=== PATIENT | male | born 1940 | race Caucasian/White ===

== ENCOUNTER → 2016-09-28 | Outpatient (CLI) | payer BC ==
[~2016-09-28] MED LIST: BILB80CA2 PO; CARV3.12 PO; CEPH500C2 PO; CHOL200027 PO; CIPR-255 PO; COEN150C PO; GLC/500 PO; GLIP10TA9 PO; INSDGI SC; LACT1CAP6 PO; LEVO50TA PO; MILK175C3 PO; MULT-513 PO; SULF800T23 PO; [UNRECOGNIZED DRUG - CODE] PO
--- NOTE | 2016-09-28 13:14 | DIAGNOSTIC IMAGING REPORT ---
DOUBLE CONTRAST BARIUM ESOPHAGRAM CLINICAL HISTORY: Choking and dysphagia. COMPARISON STUDY: CT scan of the neck dated 03/24/2013. TECHNIQUE: A standard air contrast barium esophagram is performed. Multiple spot images of the esophagus are acquired both upright and prone. FINDINGS: The patient swallowed barium and the barium pill without difficulty. The mucosal pattern is normal. There is no evidence of intrinsic or extrinsic mass lesion. No aspiration was seen. There is mild dysmotility seen in the mid to distal third of the esophagus. The gastroesophageal junction distended normally. No gastroesophageal reflux could be elicited by having the patient perform the Valsalva maneuver. Midline sternotomy wires are noted. Fluoroscopy time: 1.2 minutes. Fluoroscopic images: 22 IMPRESSION: Esophageal dysmotility. Electronically signed by: Lyndon Bello M.D. 09/28/2016 1:12 PM Dictated Date/Time: 09/28/2016 1:11 PM
== END | disposition home or self-care (01) ==
LOC: C.RAD 11:59
PROVIDERS: ATTEND Hospitalist
DX: R13.10 Dysphagia, unspecified (principal); T17.308A Unspecified foreign body in larynx causing other injury, initial encounter; K22.4 Dyskinesia of esophagus; X58.XXXA Exposure to other specified factors, initial encounter

== ENCOUNTER → 2016-10-10 | Outpatient (CLI) | payer BC ==
--- NOTE | 2016-10-10 14:12 | DIAGNOSTIC IMAGING REPORT ---
VIDEO SWALLOW STUDY CLINICAL HISTORY: Dysphagia. COMPARISON STUDY: Barium esophagram dated 09/28/2016. Fluoroscopy time: 2.5 minutes. FINDINGS: Fluoroscopic guidance was provided with the Department of Speech Pathology and performing a video swallow study. The patient consumed barium-impregnated pudding, cracker with paste, nectar thick liquids, and thin barium while the swallowing mechanism was observed in real-time. No penetration or aspiration was seen with the sampled textures. Midline sternotomy wires are noted. IMPRESSION: No penetration or aspiration was seen with the sampled textures. See dedicated Speech Pathology report for detailed findings and recommendations. Dictated: 10/10/2016 2:07 PM Transcribed: 10/10/2016 2:11 PM CHINTAN_[email or web address] Electronically signed by: Lyndon Bello M.D. 10/10/2016 2:56 PM Dictated Date/Time: 10/10/2016 2:07 PM
--- NOTE | 2016-10-10 18:39 | SWALLOWING EVALUATION ---
HISTORY: This 76 year-old man was referred for a VFSS at [facility] in order to address c/o intermittent episodes of esophageal spasm that seem to occur most frequently when he is drinking cold liquids. The patient has a PMH significant for DM II, DE with cardiac arrest, CABG, pneumonia, hypothyroidism. The patient seems to think that his issues swallowing began after he had a cardiac catheterization, but he was not entirely sure. A Barium Swallow Study on 09/28/16 was positive for esophageal dysmotility, but negative for aspiration. Currently the patient's diet level is regular. PROCEDURE: The patient was seen in the Radiology Department of [facility] for the VFSS. Cursory examination of the oral cavity revealed adequate dentition. Movement of the articulators was WNL. The patient seated on a stool and was viewed in both the Anterior-Posterior (A-P) and Lateral planes. Volitional phonation exercises completed in the A-P plane revealed bilateral vocal fold movement and vocal intensity within functional limits. In the lateral plane, the patient was given the following boluses: 1 tsp. thin liquid barium x 2, single swallow thin liquid barium self-presented from a cup, sequential swallows of thin liquid barium self-presented from a straw, 1 tsp. nectar-thick liquid barium, single swallow nectar-thick liquid barium self-presented from a straw, 1 tsp. barium pudding, and 1 club cracker with barium pudding. The patient was then repositioned into the A-P plane and given 1 tsp. barium pudding. RESULTS: Oral Stage: No interlabial bolus escape. Cohesive bolus between tongue and palate during oral bolus hold exercise. Timely and efficient mastication of cracker. Delayed initiation of tongue motion for bolus transport, but once initiated bolus moved posteriorly. Complete oral clearance of bolus after the swallow. Initiation of pharyngeal swallow when bolus head was at the posterior angle of the ramus. Oral stage of swallowing was WNL. Pharyngeal Stage: No bolus between soft palate and pharyngeal wall. Complete superior movement of the thyroid cartilage with complete approximation of the arytenoids to the epiglottic petiole. Complete anterior hyoid movement. Complete epiglottic inversion. Complete laryngeal vestibular closure. Present pharyngeal stripping wave. Complete pharyngeal contraction in the AP plane. Complete duration and distention of PES opening. No contrast between tongue base and pharyngeal wall. Complete pharyngeal clearance after the swallow. Pharyngeal stage of swallowing WNL. There was no penetration or aspiration during this study. Esophageal Stage: A pudding bolus transited the esophagus without evidence of bolus retention. Regardless, he does have known esophageal dysmotility as evidenced on a Barium Swallow Study. SUMMARY/RECOMMENDATIONS: This patient presents with normal oral-pharyngeal swallowing mechanics. The following is recommended: 1. SLIPPERY diet: choose foods that are moist, slippery, loose; avoid dry, doughy, thick foods; use condiments liberally to make foods slippery 2. Compensatory strategies: avoid icy cold liquids and other foods that may cause discomfort; alternate solids and liquids; utilize GERD precautions including sleeping with head of bed elevated at least 30-degrees A summary of the results and recommendations was discussed with the patient and his immediately following the study. They were given written information re: slippery diet and verbalized understanding of all results and recommendations. Thank you for referral of this patient. Please contact me at if any additional information is needed.
== END | disposition home or self-care (01) ==
LOC: C.RAD 12:54
PROVIDERS: ATTEND Internal Medicine
DX: K22.4 Dyskinesia of esophagus (principal); R13.10 Dysphagia, unspecified; T17.308A Unspecified foreign body in larynx causing other injury, initial encounter; X58.XXXA Exposure to other specified factors, initial encounter

== ENCOUNTER → 2016-11-23 | Outpatient (CLI) | payer BC ==
--- NOTE | 2016-11-23 11:22 | DIAGNOSTIC IMAGING REPORT ---
CHEST 2 VIEWS ROUTINE CLINICAL HISTORY: R05 Cough dyspnea COMPARISON STUDY: 01/14/2016 FINDINGS: Moderate stable cardiomegaly. Prior median sternotomy. Chronic atelectatic change medial aspect left lower lobe. No acute infiltrate is identified. IMPRESSION: Chronic scarring and/or atelectatic change left base. Otherwise negative study Electronically signed by: Shay Canas M.D. 11/23/2016 11:21 AM Dictated Date/Time: 11/23/2016 11:20 AM
== END | disposition home or self-care (01) ==
LOC: C.RAD 10:59
PROVIDERS: ATTEND Nurse Practitioner
DX: R05 Cough (principal)

== ENCOUNTER → 2017-01-09 | Outpatient (CLI) | payer BC ==
[~2017-01-09] MED LIST changes: -CEPH500C2 PO; -CIPR-255 PO; -LACT1CAP6 PO
[2017-01-09 17:35] LABS: HEMATOCRIT 36.1 % (42-52); MEAN CELL VOLUME 93.3 fL (80-100); MEAN CORPUSCULAR HGB CONC 32.1 g/dl (32-36); MEAN PLATELET VOLUME 11.1 fL (7.4-10.4); PLATELET COUNT 186 K/uL (130-400); RED BLOOD COUNT 3.87 M/uL (4.7-6.1); WHITE BLOOD COUNT 6.43 K/uL (4.8-10.8)
[2017-01-09 17:51] LABS: ALT/SGPT 30 U/L (12-78); AST/SGOT 18 U/L (15-37); BLOOD UREA NITROGEN 31 mg/dl (7-18); BUN/CREATININE RATIO 24.2 (10-20); CALCIUM 8.8 mg/dl (8.5-10.1); CARBON DIOXIDE 24 mmol/L (21-32); CHLORIDE 112 mmol/L (98-107); GLUCOSE 158 mg/dl (70-99); POTASSIUM 4.6 mmol/L (3.5-5.1); SODIUM 142 mmol/L (136-145)
[2017-01-09 17:54] LABS: ALB/GLOB RATIO 0.8 (0.9-2); ALKALINE PHOSPHATASE 179 U/L (45-117)
[2017-01-09 18:25] LABS: RATIO 2295.9 mcg/mg (0-30.0)
[2017-01-10 06:13] LABS: ESTIMATED AVERAGE GLUCOSE 206 mg/dl; HA1C FLAG Normal (Normal)
== END | disposition home or self-care (01) ==
LOC: C.LABBFT 13:48
PROVIDERS: ATTEND Nurse Practitioner
DX: E11.42 Type 2 diabetes mellitus with diabetic polyneuropathy (principal)

== ENCOUNTER → 2017-02-02 | Outpatient (CLI) | payer BC ==
[2017-02-02 17:04] LABS: BLOOD UREA NITROGEN 47 mg/dl (7-18); BUN/CREATININE RATIO 27.5 (10-20); CALCIUM 8.8 mg/dl (8.5-10.1); CARBON DIOXIDE 24 mmol/L (21-32); CHLORIDE 107 mmol/L (98-107); GLUCOSE 245 mg/dl (70-99); MAGNESIUM 2.2 mg/dl (1.8-2.4); SODIUM 143 mmol/L (136-145)
== END | disposition home or self-care (01) ==
LOC: C.LABBFT 11:53
PROVIDERS: ATTEND Internal Medicine Cardiovascular Disease
DX: I10 Essential (primary) hypertension (principal); I25.10 Atherosclerotic heart disease of native coronary artery without angina pectoris; I50.32 Chronic diastolic (congestive) heart failure; I25.5 Ischemic cardiomyopathy; D64.9 Anemia, unspecified

== ENCOUNTER → 2017-03-16 | Outpatient (CLI) | payer BC ==
[2017-03-16 17:11] LABS: BLOOD UREA NITROGEN 37 mg/dl (7-18); BUN/CREATININE RATIO 26.5 (10-20); CALCIUM 8.8 mg/dl (8.5-10.1); CARBON DIOXIDE 25 mmol/L (21-32); CHLORIDE 106 mmol/L (98-107); GLUCOSE 224 mg/dl (70-99); POTASSIUM 4.3 mmol/L (3.5-5.1); SODIUM 138 mmol/L (136-145)
== END | disposition home or self-care (01) ==
LOC: C.LABBFT 16:50
PROVIDERS: ATTEND Nurse Practitioner
DX: N28.9 Disorder of kidney and ureter, unspecified (principal)

== ENCOUNTER → 2017-05-09 | Outpatient (CLI) | payer BC ==
[~2017-05-09] MED LIST changes: -GLC/500 PO; -GLIP10TA9 PO; -SULF800T23 PO
[2017-05-09 17:38] LABS: BASO % 0.3 %; BASO ABS # 0.02 K/uL (0-0.2); COMPLETE YES; HEMATOCRIT 33.3 % (42-52); IG% 0.6 %; LYMPH % 24.3 %; LYMPH ABS # 1.54 K/uL (1.2-3.4); MEAN CELL VOLUME 88.8 fL (80-100); MEAN CORPUSCULAR HEMOGLOBIN 30.7 pg (25-34); MEAN CORPUSCULAR HGB CONC 34.5 g/dl (32-36); MEAN PLATELET VOLUME 10.4 fL (7.4-10.4); MONO % 13.1 %; NEUT % 58.7 %; PLATELET COUNT 143 K/uL (130-400); RED BLOOD COUNT 3.75 M/uL (4.7-6.1); WHITE BLOOD COUNT 6.35 K/uL (4.8-10.8)
[2017-05-09 18:42] LABS: ALB/GLOB RATIO 0.8 (0.9-2); ALKALINE PHOSPHATASE 106 U/L (45-117); ALT/SGPT 29 U/L (12-78); AST/SGOT 20 U/L (15-37); BLOOD UREA NITROGEN 38 mg/dl (7-18); BUN/CREATININE RATIO 27.4 (10-20); CALCIUM 8.5 mg/dl (8.5-10.1); CARBON DIOXIDE 25 mmol/L (21-32); CHLORIDE 105 mmol/L (98-107); CHOLESTEROL 129 mg/dl (0-200); CHOLESTEROL/HDL RATIO 4.6; GLUCOSE 353 mg/dl (70-99); HDL CHOLESTEROL 28 mg/dl; LDL CHOLESTEROL CALCULATED 53 mg/dl; POTASSIUM 4.4 mmol/L (3.5-5.1); SODIUM 137 mmol/L (136-145); TRIGLYCERIDES 240 mg/dl (0-150); VERY LOW DENSITY LIPOPROT CALC 48 mg/dl
[2017-05-09 18:52] LABS: BETA-HYDROXYBUTYRATE 1.14 mg/dL (0.2-2.81)
[2017-05-10 07:04] LABS: ESTIMATED AVERAGE GLUCOSE 278 mg/dl; HA1C FLAG Normal (Normal)
== END | disposition home or self-care (01) ==
LOC: C.LABBFT 14:10
PROVIDERS: ATTEND Nurse Practitioner
DX: E11.8 Type 2 diabetes mellitus with unspecified complications (principal); Z12.5 Encounter for screening for malignant neoplasm of prostate

== ENCOUNTER → 2017-09-13 | Outpatient (CLI) | payer BC ==
[2017-09-13 17:32] LABS: HEMATOCRIT 36.8 % (42-52); MEAN CORPUSCULAR HEMOGLOBIN 30.8 pg (25-34); MEAN CORPUSCULAR HGB CONC 33.4 g/dl (32-36); MEAN PLATELET VOLUME 11.4 fL (7.4-10.4); PLATELET COUNT 150 K/uL (130-400); WHITE BLOOD COUNT 7.14 K/uL (4.8-10.8)
[2017-09-13 17:54] LABS: ALT/SGPT 30 U/L (12-78); AST/SGOT 17 U/L (15-37); BLOOD UREA NITROGEN 33 mg/dl (7-18); BUN/CREATININE RATIO 19.4 (10-20); CALCIUM 8.4 mg/dl (8.5-10.1); CARBON DIOXIDE 27 mmol/L (21-32); CHLORIDE 103 mmol/L (98-107); CREATININE 1.71 mg/dl (0.60-1.40); GLUCOSE 304 mg/dl (70-99); POTASSIUM 3.9 mmol/L (3.5-5.1); SODIUM 135 mmol/L (136-145)
[2017-09-13 17:57] LABS: ALB/GLOB RATIO 0.8 (0.9-2); CHOLESTEROL 139 mg/dl (0-200); TRIGLYCERIDES 175 mg/dl (0-150); VERY LOW DENSITY LIPOPROT CALC 35 mg/dl
[2017-09-13 18:07] LABS: ALKALINE PHOSPHATASE 92 U/L (45-117); BETA-HYDROXYBUTYRATE 0.84 mg/dL (0.2-2.81); CHOLESTEROL/HDL RATIO 4.6; HDL CHOLESTEROL 30 mg/dl; LDL CHOLESTEROL CALCULATED 74 mg/dl
[2017-09-14 06:13] LABS: ESTIMATED AVERAGE GLUCOSE 240 mg/dl; HA1C FLAG Normal (Normal)
== END | disposition home or self-care (01) ==
LOC: C.LABBFT 14:40
PROVIDERS: ATTEND Nurse Practitioner
DX: E11.8 Type 2 diabetes mellitus with unspecified complications (principal); E78.00 Pure hypercholesterolemia, unspecified; D64.9 Anemia, unspecified

== ENCOUNTER → 2017-12-13 | Outpatient (CLI) | payer BC ==
--- NOTE | 2017-12-13 15:17 | DIAGNOSTIC IMAGING REPORT ---
CHEST 2 VIEWS ROUTINE CLINICAL HISTORY: J18.9 Community acquired pneumonia dyspnea COMPARISON STUDY: 11/23/2016 FINDINGS: Moderate cardiomegaly. Prior median sternotomy. Infiltrate right base. Upper lungs are clear. Diaphragms are smooth. IMPRESSION: Moderate cardiomegaly. Infiltrate right base. The above report was generated using voice recognition software. It may contain grammatical, syntax or spelling errors. Electronically signed by: Shay Canas M.D. 12/13/2017 3:15 PM Dictated Date/Time: 12/13/2017 3:15 PM
[2017-12-13 16:15] LABS: HEMATOCRIT 31.3 % (42-52); HEMOGLOBIN 10.9 g/dL (14.0-18.0); MEAN CELL VOLUME 89.2 fL (80-100); MEAN CORPUSCULAR HEMOGLOBIN 31.1 pg (25-34); MEAN CORPUSCULAR HGB CONC 34.8 g/dl (32-36); MEAN PLATELET VOLUME 10.4 fL (7.4-10.4); PLATELET COUNT 119 K/uL (130-400); RED CELL DISTRIBUTION WIDTH CV 14.2 % (11.5-14.5); RED CELL DISTRIBUTION WIDTH SD 46.5 fL (36.4-46.3); WHITE BLOOD COUNT 5.16 K/uL (4.8-10.8)
[2017-12-13 16:42] LABS: BLOOD UREA NITROGEN 55 mg/dl (7-18); CARBON DIOXIDE 22 mmol/L (21-32); CREATININE 1.94 mg/dl (0.60-1.40); CREATININE RANDOM URINE 83.3 mg/dl; GLUCOSE 215 mg/dl (70-99); POTASSIUM 4.2 mmol/L (3.5-5.1); SODIUM 132 mmol/L (136-145)
[2017-12-13 16:53] LABS: BASO % 0.4 %; BASO ABS # 0.02 K/uL (0-0.2); EOS % 0.2 %; EOS ABS # 0.01 K/uL (0-0.5); IG# 0.01 K/uL (0.00-0.02); LYMPH ABS # 0.93 K/uL (1.2-3.4); MONO % 15.3 %; MONO ABS # 0.79 K/uL (0.11-0.59); NEUT % 65.9 %
== END | disposition home or self-care (01) ==
LOC: C.RAD 14:18
PROVIDERS: ATTEND Nurse Practitioner
DX: J18.9 Pneumonia, unspecified organism (principal); E11.8 Type 2 diabetes mellitus with unspecified complications; R53.83 Other fatigue; D64.9 Anemia, unspecified

== ENCOUNTER → 2017-12-19 | Outpatient (CLI) | payer BC ==
[2017-12-19 11:08] LABS: BLOOD UREA NITROGEN 49 mg/dl (7-18); CALCIUM 9.1 mg/dl (8.5-10.1); CARBON DIOXIDE 23 mmol/L (21-32); CREATININE 1.64 mg/dl (0.60-1.40); GLUCOSE 340 mg/dl (70-99); POTASSIUM 4.4 mmol/L (3.5-5.1); SODIUM 136 mmol/L (136-145)
== END | disposition home or self-care (01) ==
LOC: C.LAB1850 09:12
PROVIDERS: ATTEND Nurse Practitioner
DX: D64.9 Anemia, unspecified (principal)

== ENCOUNTER → 2018-01-16 | Outpatient (CLI) | payer BC ==
[2018-01-16 16:28] LABS: HEMATOCRIT 33.7 % (42-52); HEMOGLOBIN 11.5 g/dL (14.0-18.0); MEAN CELL VOLUME 89.6 fL (80-100); MEAN CORPUSCULAR HEMOGLOBIN 30.6 pg (25-34); MEAN CORPUSCULAR HGB CONC 34.1 g/dl (32-36); MEAN PLATELET VOLUME 10.8 fL (7.4-10.4); PLATELET COUNT 138 K/uL (130-400); RED CELL DISTRIBUTION WIDTH CV 14.3 % (11.5-14.5); WHITE BLOOD COUNT 6.56 K/uL (4.8-10.8)
[2018-01-16 16:50] LABS: ALBUMIN 3.3 gm/dl (3.4-5.0); ALT/SGPT 37 U/L (12-78); AST/SGOT 26 U/L (15-37); BLOOD UREA NITROGEN 44 mg/dl (7-18); CALCIUM 8.1 mg/dl (8.5-10.1); CARBON DIOXIDE 22 mmol/L (21-32); GLUCOSE 225 mg/dl (70-99); POTASSIUM 3.8 mmol/L (3.5-5.1); SODIUM 132 mmol/L (136-145)
[2018-01-16 16:52] LABS: ALKALINE PHOSPHATASE 106 U/L (45-117); CHOLESTEROL 100 mg/dl (0-200); LDL CHOLESTEROL CALCULATED 46 mg/dl; TOTAL PROTEIN 7.3 gm/dl (6.4-8.2); TRANSFERRIN 261 mg/dl (200-360)
== END | disposition home or self-care (01) ==
LOC: C.LABBFT 12:11
PROVIDERS: ATTEND Nurse Practitioner
DX: E11.8 Type 2 diabetes mellitus with unspecified complications (principal); D64.9 Anemia, unspecified

== ENCOUNTER 2019-09-20 12:05 | Observation (INO) ==
[2019-09-20] MEDS ORDERED: PIPERACILLIN/TAZOBACTAM 4.5 GM/120 ML BAG IV ONE ×2 (12:45→17:13)
[2019-09-20] MEDS ORDERED: DAPTOmycin 500 MG in SYRINGE 0 ML IV STA (12:45)
[2019-09-20] MEDS ORDERED: PIPERACILL/TAZOBAC CONSULT ACTIVE PRN ×2 (12:45→17:13)
--- NOTE | 2019-09-20 12:48 | Emergency Department Note ---
ED Visit Note This patient was seen in concert with Dr. Cobb and we discussed and agreed upon the history, physical, assessment, and plan. See attending's note for details. . Resident Activity Tracking Resident Involvement: Resident Care Provided Care Provided: Adult ED
--- NOTE | 2019-09-20 13:12 | Emergency Department Note ---
Entered by Latonia Perkins acting as a scribe for History of Present Illness General Chief complaint: Groin Pain Stated complaint: GROIN SWELLING/PAIN Time Seen by Provider: 09/20/19 12:13 Source: patient History of Present Illness Provider complaint: scrotum swelling Onset (ago): week(s) 2 Location: genitals and right Pain Consistency: + other (worsening) Maximum Pain Intensity: 5 Current Pain Intensity: 4 Quality: + other (right scrotum swelling) Exacerbated By: + other (Touch; Sitting back;) Associated symptoms: + fever/chills and + other (Negative hematuria; ); no chest pain and no shortness of breath Treatments prior to arrival: other (Hydrogen peroxide; soap; frequent showers;) The patient, who is a 79 year old male with a medical history of anemia, diabetic nephropathy, and hypertension, presents to the Emergency Room with complaints of scrotum swelling from an injury that occurred two weeks ago. The patient explains that two weeks ago he was using the bathroom in his backyard when he fell forward and scratched his right scrotum on a tree. The patient expresses that he didn't not have any concerns at the time. The patient states over the course of his symptoms his scrotum has been swelling to the current size of a grapefruit. The patient denies difficulty urinating but expresses that he does not have control of his stream. The patient denies hematuria. The patient expresses that for two days last week he experienced fever and chills, however this has resolved. The patient denies chest pain, shortness of breath, or hematuria. The patient expresses that he can no longer sit properly or walk properly. The patient rates his current pain intensity a 4 out of 10. The patient relays that his pain is exacerbated when he sits back or touches the area. The patient states that he has been using soap, hydrogen peroxide and fr equent showers to treat the area. The patient denies any other medication use for treatment. Home Medications Home Medications Medication Instructions Recorded Confirmed Type coenzyme Q10 [Co Q-10] 100 mg PO DAILY PRN 08/11/18 09/20/19 History cholecalciferol (vitamin D3) 5,000 5,000 units PO TUTHSA cap 04/30/19 09/20/19 History unit capsule flash glucose scanning reader #1 ea 04/30/19 04/30/19 History garlic-parsley 1 tab PO DAILY tab 04/30/19 09/20/19 History lancets 33 gauge #100 ea 04/30/19 04/30/19 History magnesium citrate 100 mg tablet 200 mg PO DAILY PRN tab 04/30/19 09/20/19 History milk thistle 500 mg capsule 1,000 mg PO DAILY PRN cap 04/30/19 09/20/19 History pen needle, diabetic 32 gauge x #10 ea 04/30/19 04/30/19 History 5/32" sub-q insulin device, 40 unit #30 ea 04/30/19 04/30/19 History turmeric root extract 500 mg 1,500 mg PO DAILY PRN cap 04/30/19 09/20/19 History capsule flash glucose sensor #6 ea 08/25/19 Rx bilberry 100 mg PO DAILY 09/20/19 09/20/19 History furosemide 40 mg PO DAILYBB 09/20/19 09/20/19 History insulin aspart U-100 [Novolog 80 unit SUBCUT DAILY 09/20/19 09/20/19 History U-100 Insulin aspart] levothyroxine [Synthroid] 75 mcg PO DAILYBB 09/20/19 09/20/19 History Allergies Allergy/AdvReac Type Severity Reaction Status Date / Time cat dander Allergy Mild unknown Verified 03/24/19 11:29 ragweed pollen Allergy Unknown SHORTNESS Verified 03/24/19 11:29 OF BREATH lisinopril Allergy Verified 03/24/19 11:29 [id number] Reductase Allergy Verified 09/20/19 13:18 Inhibitor Past Med/Surg History Medical History Chronic venous stasis (Chronic) Diabetes (Chronic) Hypothyroid (Chronic) Surgical History S/P CABG x 3 (Chronic) Family History (Updated 09/20/19 @ 16:12 by Pauly Hernandez DO) Other No significant family history Social History Preferred Language: Sinhala Communication Ability: Effective Machine Operator Required: No Beliefs That Will Affect Care: None marital status: Current Living Situation: Foster Care current occupational status: retired Feels Safe at Home: Yes Smoking Status: Former smoker Second Hand Exposure: No ; Hx Alcohol Use: Yes Hx Substance Use: No Review of Systems See HPI for pertinent positives & negatives. and A total of 10 systems reviewed and were otherwise negative Physical Exam Vital Signs Vital Signs - 24 hr 09/20/19 12:10 09/20/19 14:05 Temperature 36.5 C Temperature Source Oral Pulse Rate 51 L Pulse Rate [Apical] 82 Respiratory Rate 20 16 Blood Pressure 179/80 H Blood Pressure [Left Arm] 208/94 H Blood Pressure Mean 113 Blood Pressure Mean [Left Arm] 132 Pulse Oximetry 98 97 Oxygen Delivery Method Room Air Room Air Sepsis Recent Fever Within 48 Hours No Sepsis New/Unexplained Change in Mental Status No Sepsis Action Taken by Nursing No Action Required GENERAL: Patient is in no acute distress. HEENT: No acute trauma, normocephalic atraumatic, mucous membranes moist, no nasal congestion, no scleral icterus. NECK: No stridor, no adenopathy, no meningismus, trachea is midline. LUNGS: Clear to auscultation bilaterally, no wheeze, no rhonchi, breath sounds equal. HEART: Without murmurs gallops or rubs, regular rate and rhythm. ABDOMEN: Soft, nontender, bowel sounds positive, no hernias, no peritonitis. EXTREMITIES: Moderate bilateral pedal edema extending to the thigh, chronic skin change to both lower extremities, no warmth to either lower extremities, no gross deformity. GENITAL: Signs of scrotal edema with some erythema to the inferior and posterior aspect of the scrotum and to the crease of the groin. The edema makes the testicular exam near impossible, the head of the penis can not be found, no warmth noted. NEUROLOGIC: Oriented x 3, no acute motor or sensory deficits, no focal weakness. SKIN: No rash, no jaundice, no diaphoresis. Course Course 1217: Past medical records reviewed. The patient was evaluated in room A2. A complete history and physical exam was performed. 1402: My assigned resident reassessed the patient and informed me of any updates on the patient. The patient is resting. 1515: I reviewed the patient's case with Dr. Hernandez, [facility] Hospitalist. She will evaluate the patient for further management. Consultations Consultation #1: I reviewed the patient's case with Dr. Hernandez, [facility] Hospitalist. She will evaluate the patient for further management. Time: 15:15 Administered Medications Insulin Aspart (Novolog Flexpen) 0 units SC ACHS ADELFO Stop: 10/20/19 17:12 Last Admin: 09/20/19 17:56 Dose: Not Given Documented by: [id number] Ioversol (Optiray 320 100ml) 95 ml IV ONCE PRN PRN Reason: Interaction Checking Stop: 09/24/19 13:51 Last Admin: 09/20/19 13:53 Dose: 95 ml Documented by: [id number] Discontinued Medications Furosemide (Lasix) 40 mg IV NOW STA Stop: 09/20/19 14:02 Last Admin: 09/20/19 14:36 Dose: 40 mg Documented by: [id number] Piperacillin Sod/Tazobactam Sod (Zosyn) 4.5 gm in 120 mls @ 240 mls/hr IV NOW ONE Stop: 09/20/19 13:14 Last Infusion: 09/20/19 13:56 Dose: 0 mls/hr Documented by: [id number] Admin: 09/20/19 13:25 Dose: 240 mls/hr Documented by: [id number] Daptomycin 500 mg/ Syringe 10 mls @ 5 mls/min IV NOW STA; Protocol Stop: 09/20/19 12:46 Last Admin: 09/20/19 13:25 Dose: 5 mls/min Documented by: [id number] Medical Decision Making Differential Diagnosis Differential diagnosis includes: scrotal cellulitis, scrotal abscess, diastolic heart failure, right sided heart failure, fluid overload, testicular trauma, as well as others were entertained. Medical Records Attestation: I reviewed the patient's medical records. Home Medications Current Medication List: was personally reviewed by me Laboratory Data Attestation: I reviewed the patient's lab results. Result diagrams: 09/20/19 13:07 09/20/19 13:07 Lab Results 09/20/19 09/20/19 09/20/19 Range/Units 12:55 13:07 13:07 WBC 8.43 (4.8-10.8) K/uL RBC 4.15 L (4.7-6.1) M/uL Hgb 13.0 L (14.0-18.0) g/dL Hct 39.1 L (42-52) % MCV 94.2 (80-100) fL MCH 31.3 (25-34) pg MCHC 33.2 (32-36) g/dL RDW Std Deviation 49.4 H (36.4-46.3) fL RDW Coeff of Malcolm 14.3 (11.5-14.5) % Plt Count 202 (130-400) K/uL MPV 10.6 H (7.4-10.4) fL Immature Gran % (Auto) 0.5 % Neut % (Auto) 69.6 % Lymph % (Auto) 16.1 % [place] % (Auto) 10.0 % Eos % (Auto) 3.6 % Baso % (Auto) 0.2 % Immature Gran # (Auto) 0.04 H (0.00-0.02) K/uL Neut # (Auto) 5.87 (1.4-6.5) K/uL Lymph # (Auto) 1.36 (1.2-3.4) K/uL [place] # (Auto) 0.84 H (0.11-0.59) K/uL Eos # (Auto) 0.30 (0-0.5) K/uL Baso # (Auto) 0.02 (0-0.2) K/uL Sodium 138 (136-145) mmol/L Potassium 3.8 (3.5-5.1) mmol/L Chloride 106 (98-107) mmol/L Carbon Dioxide 26 (21-32) mmol/L Anion Gap 6.0 (3-11) BUN 37 H (7-18) mg/dl Creatinine 1.69 H (0.6-1.4) mg/dl Est Cr Clr Drug Dosing 45.8 ml/min Est GFR ( Amer) 44.1 Est GFR (Non-Af Amer) 38.1 BUN/Creatinine Ratio 21.6 H (10-20) Glucose 209 H (70-99) mg/dl Lactate (0.4-2.0) mmol/L Calcium 9.2 (8.5-10.1) mg/dl Total Bilirubin 0.7 (0.2-1) mg/dl AST 19 (15-37) U/L ALT 25 (12-78) U/L Alkaline Phosphatase 191 H (45-117) U/L Total Protein 8.3 H (6.4-8.2) gm/dl Albumin 3.2 L (3.4-5.0) gm/dl Globulin 5.1 H (2.5-4.0) gm/dl Albumin/Globulin Ratio 0.6 L (0.9-2) Urine Color Yellow Urine Appearance Clear (Clear) Urine pH 5.0 (4.5-7.5) Ur Specific [place] 1.010 (1.000-1.030) Urine Protein 1+ H (Negative) Urine Glucose (UA) Negative (Negative) Urine Ketones Negative (Negative) Urine Blood Trace H (Negative) Urine Nitrite Negative (Negative) Urine Bilirubin Negative (Negative) Urine Urobilinogen Negative (Negative) Ur Leukocyte Esterase Negative (Negative) Urine WBC (Auto) 0 (0-5) /hpf Urine RBC (Auto) 0-4 (0-4) /hpf U Hyaline Cast (Auto) 0 (0-5) /lpf U Epithel Cells (Auto) 0-5 (0-5) /lpf Urine Bacteria (Auto) Negative (Negative) 09/20/19 Range/Units 13:07 WBC (4.8-10.8) K/uL RBC (4.7-6.1) M/uL Hgb (14.0-18.0) g/dL Hct (42-52) % MCV (80-100) fL MCH (25-34) pg MCHC (32-36) g/dL RDW Std Deviation (36.4-46.3) fL RDW Coeff of Malcolm (11.5-14.5) % Plt Count (130-400) K/uL MPV (7.4-10.4) fL Immature Gran % (Auto) % Neut % (Auto) % Lymph % (Auto) % [place] % (Auto) % Eos % (Auto) % Baso % (Auto) % Immature Gran # (Auto) (0.00-0.02) K/uL Neut # (Auto) (1.4-6.5) K/uL Lymph # (Auto) (1.2-3.4) K/uL [place] # (Auto) (0.11-0.59) K/uL Eos # (Auto) (0-0.5) K/uL Baso # (Auto) (0-0.2) K/uL Sodium (136-145) mmol/L Potassium (3.5-5.1) mmol/L Chloride (98-107) mmol/L Carbon Dioxide (21-32) mmol/L Anion Gap (3-11) BUN (7-18) mg/dl Creatinine (0.6-1.4) mg/dl Est Cr Clr Drug Dosing ml/min Est GFR ( Amer) Est GFR (Non-Af Amer) BUN/Creatinine Ratio (10-20) Glucose (70-99) mg/dl Lactate 1.5 (0.4-2.0) mmol/L Calcium (8.5-10.1) mg/dl Total Bilirubin (0.2-1) mg/dl AST (15-37) U/L ALT (12-78) U/L Alkaline Phosphatase (45-117) U/L Total Protein (6.4-8.2) gm/dl Albumin (3.4-5.0) gm/dl Globulin (2.5-4.0) gm/dl Albumin/Globulin Ratio (0.9-2) Urine Color Urine Appearance (Clear) Urine pH (4.5-7.5) Ur Specific [place] (1.000-1.030) Urine Protein (Negative) Urine Glucose (UA) (Negative) Urine Ketones (Negative) Urine Blood (Negative) Urine Nitrite (Negative) Urine Bilirubin (Negative) Urine Urobilinogen (Negative) Ur Leukocyte Esterase (Negative) Urine WBC (Auto) (0-5) /hpf Urine RBC (Auto) (0-4) /hpf U Hyaline Cast (Auto) (0-5) /lpf U Epithel Cells (Auto) (0-5) /lpf Urine Bacteria (Auto) (Negative) Imaging Data Radiologist's Impression: Radiology results as stated below per my review and the radiologist's interpretation: CT abd pelvis IV con only CT DOSE: 2285.86 mGy.cm HISTORY: ?scrotal abscess/cellulitis TECHNIQUE: Multiaxial CT images of the abdomen and pelvis were performed following the use of intravenous contrast. A dose lowering technique was utilized adhering to the principles of ALARA. COMPARISON STUDY: None. FINDINGS: Right pleural effusion. Infiltrate and/or partial lower lobe atelectasis right base. Minimal dependent atelectasis left base. Findings suggesting a component of hepatic cirrhosis. Trace amount of perihepatic ascites. The kidneys enhance uniformly. 2 cm lower pole right renal cyst. No evidence for hydronephrosis. Nonobstructive bowel pattern. Scattered colonic and sigmoid diverticulosis. No evidence for acute diverticulitis. Mild anterior abdominal wall cellulitis. This is more prominent in the region of the scrotal region. Large hydrocele is possibly present. Cannot entirely exclude the possibility of abscess formation. There is a complex nodular process measuring 7 cm within the inferior aspect of the scrotum with several nonspecific soft tissue calcifications. Mild infiltrative change involving the subcutaneous fat lateral aspects of the proximal thighs. IMPRESSION: 1. Enlarged scrotum with what appears to be either a large hydrocele versus developing abscess. 2. 7 cm somewhat irregular collection within the inferior aspect of the scrotum which potentially relates to a irregular testis versus internal collection or abscess. 3. Scrotal ultrasound is recommended as follow-up. 4. Soft tissue cellulitis anterior to the symphysis pubis as well as lateral aspects of the thighs as well as anterior abdominal wall. 5. Hepatic cirrhosis with a small amount of perihepatic ascites. 6. Scattered colonic diverticulosis with no evidence for diverticulitis. 7. Moderate right pleural effusion with components of right lower lobe atelectatic change. 8. Several reactive nodes in the inguinal regions bilaterally. ACT 112: Negative or not required by law. The above report was generated using voice recognition software. It may contain grammatical, syntax or spelling errors. Electronically signed by: Shay Caans M.D. 09/20/2019 2:03 PM US scrotum/testicle HISTORY: Trauma. Pain. Edema. ?scrotal abscess/cellulitis COMPARISON: CT same day FINDINGS: Right testis: Maximum dimension 4.7 cm. Normal vascular flow. Complex moderately thick walled collection or slightly complex hydrocele lateral to the right testis. This measures 7 x 6 cm. Right epididymis is somewhat limited visibility due to edema but demonstrates 2 small 5 and 10 mm epididymal cysts. Generalized scrotal wall thickening is present. Left testis measures 4.6 cm maximum dimension. Normal vascular flow is present. IMPRESSION: 1. The right as well as left testis appear normal with normal vascular flow. 2. Slightly complex thick-walled collection lateral to the right testis measuring 7 x 6 cm. 3. All findings are associated with considerable thickening of the scrotal wall. 4. Diagnostic considerations of the large somewhat thick-walled collection include a thick-walled hydrocele, old hematoma given the presence of trauma history,, with the possibility of a superimposed soft tissue cellulitis. 5. A focal abscess lateral to the right testis is not completely excluded. ACT 112: Negative or not required by law. The above report was generated using voice recognition software. It may contain grammatical, syntax or spelling errors. Electronically signed by: Shay Canas M.D. 09/20/2019 2:39 PM Blood Pressure Blood Pressure Findings: Elevated blood pressure Blood Pressure Disposition: further management by hospitalist [facility] Narrative There is no leukocytosis. No worrisome anemia. The patient has a normal platelet count. There is some renal insufficiency but this is baseline looking back at previous testing. Lactic acid level is not elevated making severe sepsis less likely. Alk phos mildly elevated, the bilirubin was normal. Urinalysis does not show any evidence of for infection. Scrotal ultrasound suggested a hydrocele versus abscess versus hematoma. Abdominal and pelvis CT shows some edema to the scrotal area, there was a fluid collection seen. The patient received IV Lasix to help with his edema. He was given IV daptomycin and IV Zosyn as antibiotic coverage. The patient presents with increasing scrotal edema and pain. He had suffered some scrotal trauma. The patient requires a hospital stay for possible cellulitis/abscess. Further work-up and urologic consult is required. There is clearly a component of edema as part of his issue and he will require extensive diuresis. I spoke to the patient and his family, I spoke with the employment evaluator/case manager. The [facility] hospitalist was consulted. Impression & Plan Cellulitis, scrotum, Scrotal edema, Fluid overload, Scrotal trauma Discharge Plan Visit Data *Final* Discharge Date/Time: 09/20/19 16:43 Chief Complaint: Groin Pain Stated Complaint: GROIN SWELLING/PAIN ED Provider: Lyndon Cobb ED Midlevel Provider: Néstor Guardado Discharge Problem: Cellulitis, scrotum, Scrotal edema, Fluid overload, Scrotal trauma Patient Disposition: Admitted As Inpatient Discharge Instructions Interventions: ED Discharge Assessment Last Done: 09/20/19 16:43 Discharge Problem: Fluid overload Qualifiers: Hypervolemia type: unspecified Qualified Code(s): E87.70 - Fluid overload, unspecified Scrotal trauma Qualifiers: Encounter type: initial encounter Qualified Code(s): S39.94XA - Unspecified injury of external genitals, initial encounter The scribe's documentation has been prepared under my direction and personally reviewed by me in its entirety. I confirm that the note above accurately reflects all work, treatment, procedures, and medical decision making performed by me.
[2019-09-20 13:19] LABS: Basophils # (auto) 0.02 K/uL (0-0.2); Basophils % (auto) 0.2 %; Eosinophils % (auto) 3.6 %; Hematocrit (blood only) 39.1 % (42-52); Immature Granulocytes # (auto) 0.04 K/uL (0.00-0.02); Immature Granulocytes % (auto) 0.5 %; Lymphocytes # (auto) 1.36 K/uL (1.2-3.4); Lymphocytes % (auto) 16.1 %; Mean Corpuscular Hemoglobin 31.3 pg (25-34); Mean Corpuscular Hgb Conc 33.2 g/dL (32-36); Mean Corpuscular Volume 94.2 fL (80-100); Mean Platelet Volume 10.6 fL (7.4-10.4); Monocytes # (auto) 0.84 K/uL (0.11-0.59); Neutrophils # (auto) 5.87 K/uL (1.4-6.5); Neutrophils % (auto) 69.6 %; Platelet Count 202 K/uL (130-400); RDW Coefficient of Variation 14.3 % (11.5-14.5); RDW Standard Deviation 49.4 fL (36.4-46.3); Red Blood Count 4.15 M/uL (4.7-6.1); White Blood Count 8.43 K/uL (4.8-10.8)
[2019-09-20 13:24] LABS: Appearance Urine Clear (Clear); Bacteria Urine Automated Negative (Negative); Bilirubin Urine Negative (Negative); Blood Urine Trace (Negative); Cast Urine Automated 0 /lpf (0-5); Color Urine Yellow; Epithelial Cell Urine Auto 0-5 /lpf (0-5); Glucose Urine UA Negative (Negative); Ketones Urine Negative (Negative); Leukocyte Esterase Urine Negative (Negative); Nitrite Urine Negative (Negative); Protein Urine 1+ (Negative); RBC Urine Automated 0-4 /hpf (0-4); Urobilinogen Urine Negative (Negative); WBC Urine Automated 0 /hpf (0-5)
[2019-09-20 13:39] LABS: Albumin Level 3.2 gm/dl (3.4-5.0); BUN Creatinine Ratio 21.6 (10-20); Calcium 9.2 mg/dl (8.5-10.1); Creatinine Clr Calc Pharmacy 45.8 ml/min; Est GFR (African American) 44.1; Est GFR (Non-African American) 38.1; Potassium 3.8 mmol/L (3.5-5.1)
[2019-09-20 13:42] LABS: Albumin Globulin Ratio 0.6 (0.9-2); Bilirubin,Total 0.7 mg/dl (0.2-1); Globulin 5.1 gm/dl (2.5-4.0); Total Protein 8.3 gm/dl (6.4-8.2)
[2019-09-20] MEDS ORDERED: IOVERSOL 100ml IV PRN (13:52)
[2019-09-20] MEDS ORDERED: FUROSEMIDE 40 MG/4 ML VIAL IV STA (14:01)
--- NOTE | 2019-09-20 14:04 | CT Scan Report ---
CT abd pelvis IV con only CT DOSE: 2285.86 mGy.cm HISTORY: ?scrotal abscess/cellulitis TECHNIQUE: Multiaxial CT images of the abdomen and pelvis were performed following the use of intrave nous contrast. A dose lowering technique was utilized adhering to the principles of ALARA. COMPARISON STUDY: None. FINDINGS: Right pleural effusion. Infiltrate and/or partial lower lobe atelectasis right base. Minima l dependent atelectasis left base. Findings suggesting a component of hepatic cirrhosis. Trace amount of perihepatic ascites. The kidneys enhance uniformly. 2 cm lower pole right renal cyst. No evidence for hydronephrosis. Nonobstructive bowel pattern. Scattered colonic and sigmoid diverticulosis. No evidence for acute diverticulitis. Mild anterior abdominal wall cellulitis. This is more prominent in the region of the scrotal region. Large hydrocele is possibly present. Cannot entirely exclude the possibility of abscess formation. There is a complex nodular process measuring 7 cm within the inferior aspect of the scrotum with rachelle ral nonspecific soft tissue calcifications. Mild infiltrative change involving the subcutaneous fat lateral aspects of the proximal thighs. IMPRESSION: 1. Enlarged scrotum with what appears to be either a large hydrocele versus developing abscess. 2. 7 cm somewhat irregular collection within the inferior aspect of the scrotum which potentially rel ates to a irregular testis versus internal collection or abscess. 3. Scrotal ultrasound is recommended as follow-up. 4. Soft tissue cellulitis anterior to the symphysis pubis as well as lateral aspects of the thighs as well as anterior abdominal wall. 5. Hepatic cirrhosis with a small amount of perihepatic ascites. 6. Scattered colonic diverticulosis with no evidence for diverticulitis. 7. Moderate right pleural effusion with components of right lower lobe atelectatic change. 8. Several reactive nodes in the inguinal regions bilaterally. ACT 112: Negative or not required by law. The above report was generated using voice recognition software. It may contain grammatical, syntax or spelling errors. Electronically signed by: Shay Canas M.D. 09/20/2019 2:03 PM
--- NOTE | 2019-09-20 14:41 | Ultrasound Report ---
US scrotum/testicle HISTORY: Trauma. Pain. Edema. ?scrotal abscess/cellulitis COMPARISON: CT same day FINDINGS: Right testis: Maximum dimension 4.7 cm. Normal vascular flow. Complex moderately thick walled collect ion or slightly complex hydrocele lateral to the right testis. This measures 7 x 6 cm. Right epididym is is somewhat limited visibility due to edema but demonstrates 2 small 5 and 10 mm epididymal cysts. Generalized scrotal wall thickening is present. Left testis measures 4.6 cm maximum dimension. Normal vascular flow is present. IMPRESSION: 1. The right as well as left testis appear normal with normal vascular flow. 2. Slightly complex thick-walled collection lateral to the right testis measuring 7 x 6 cm. 3. All findings are associated with considerable thickening of the scrotal wall. 4. Diagnostic considerations of the large somewhat thick-walled collection include a thick-walled hyd rocele, old hematoma given the presence of trauma history,, with the possibility of a superimposed so ft tissue cellulitis. 5. A focal abscess lateral to the right testis is not completely excluded. ACT 112: Negative or not required by law. The above report was generated using voice recognition software. It may contain grammatical, syntax or spelling errors. Electronically signed by: Shay Canas M.D. 09/20/2019 2:39 PM
--- NOTE | 2019-09-20 16:15 | History & Physical Report ---
Date of Service September 20, 2019 Assessment & Plan (1) Cellulitis, scrotum: ?? of abscess on CT AP and US Started on dapto/zosyn in the ED, will continue WBC WNL, afebrile Urology c/s pending Lactic acid WNL Blood cx pending (2) Hypothyroidism: continue home meds (3) CKD (chronic kidney disease) stage 3, GFR 30-59 ml/min: Baseline cr is around 1.8, 1.6 on admission (4) Chronic diastolic (congestive) heart failure: continue home meds Monitor with increased IVF (5) S/P CABG (coronary artery bypass graft): 7 yrs ago, stable (6) Uncontrolled type 2 diabetes mellitus with insulin therapy: Insulin pump at home, prefers to use during admission if short stay SSI PRN A1c pending (7) Venous stasis ulcers of both lower extremities: Follows with [facility] pending (8) DVT prophylaxis: SCDs given possible need for surgical intervention of scrotum History of Present Illness Primary Care Provider: Roc Casanova MD 79 y/o M c/o scrotal pain and swelling. Pt states that he was working in his yard about 2 weeks ago. He stopped to urinate and had a slight loss of balance that caused him to lean into some recently cut brush. He noted a small laceration at that time with a very slight amount of bleeding that did not seem like much overall to him. He started to have scrotal pain, swelling, and redness a few days later that had continued to increase. At this point, he has to sit on the edge furniture because his scrotum is too tender to sit back. He has no issues urinating--no pain, decrease in urination, issues with flow. No prior hx of similar episodes. He had 48 hrs of fever and diarrhea last week, but this resolved and no further issues. He feels fine otherwise. Pt denies SOB, c hest pain, abd pain, n/v, LE pain. He has chronic LE swelling that waxes and wanes. He did take his PRN lasix 2 days ago for some swelling in the thighs and this is back to usual. LE redness is also chronic. Allergies Allergy/AdvReac Type Severity Reaction Status Date / Time cat dander Allergy Mild unknown Verified 03/24/19 11:29 ragweed pollen Allergy Unknown SHORTNESS Verified 03/24/19 11:29 OF BREATH lisinopril Allergy Verified 03/24/19 11:29 Dvjpeet-Ypy-Dcj Reductase Allergy Verified 09/20/19 13:18 Inhibitor Home Medications Home Medications Medication Instructions Recorded Confirmed Type coenzyme Q10 [Co Q-10] 100 mg PO DAILY PRN 08/11/18 09/20/19 History cholecalciferol (vitamin D3) 5,000 5,000 units PO TUTHSA cap 04/30/19 09/20/19 History unit capsule flash glucose scanning reader #1 ea 04/30/19 04/30/19 History garlic-parsley 1 tab PO DAILY tab 04/30/19 09/20/19 History lancets 33 gauge #100 ea 04/30/19 04/30/19 History magnesium citrate 100 mg tablet 200 mg PO DAILY PRN tab 04/30/19 09/20/19 History milk thistle 500 mg capsule 1,000 mg PO DAILY PRN cap 04/30/19 09/20/19 History pen needle, diabetic 32 gauge x #10 ea 04/30/19 04/30/19 History 5/32" sub-q insulin device, 40 unit #30 ea 04/30/19 04/30/19 History turmeric root extract 500 mg 1,500 mg PO DAILY PRN cap 04/30/19 09/20/19 History capsule flash glucose sensor #6 ea 08/25/19 Rx bilberry 100 mg PO DAILY 09/20/19 09/20/19 History furosemide 40 mg PO DAILYBB 09/20/19 09/20/19 History insulin aspart U-100 [Novolog 80 unit SUBCUT DAILY 09/20/19 09/20/19 History U-100 Insulin aspart] levothyroxine [Synthroid] 75 mcg PO DAILYBB 09/20/19 09/20/19 History Past Med/Surg History Medical History Chronic venous stasis (Chronic) Diabetes (Chronic) Hypothyroid (Chronic) Surgical History S/P CABG x 3 (Chronic) Family History (Updated 09/20/19 @ 16:12 by Pauly Hernandez DO) Other No significant family history Social History Preferred Language: Czech Communication Ability: Effective Periodicals Clerk Required: No Beliefs That Will Affect Care: None marital status: Current Living Situation: Foster Care current occupational status: retired Other Information That Helps Us Care for You: No Feels Safe at Home: Yes Safety Concerns: Feels Safe At This Time Smoking Status: Former smoker Do You Dip or Chew Tobacco: No ; Second Hand Exposure: No ; Tobacco Cessation Education Requested by Patient: No Hx Alcohol Use: Yes Hx Substance Use: No Review of Systems Review of Systems: Pertinent positives and negatives reviewed in HPI--all others negative Physical Exam Constitutional: WD/WN, vitals as above Eyes: normal visual vogt by confrontation and + anicteric sclerae Neck: normal visual inspection and trachea midline Respiratory: normal respiratory effort, lungs clear to auscultation Cardiovascular: Rate/Rhythm: regular rate and regular rhythm Gastrointestinal (Abdomen): Inspection/Auscultation: + abdomen distended Percussion/Palpation: abdomen soft; abdomen nontender Musculoskeletal: Head/Neck/Chest: normocephalic and head atraumatic chronic LE edema, peripheral pulses intact Skin: no rashes, warm and dry b/l foot redness, appears chronic multiple LE bandages noted, clean and dry Neurologic: awake; not confused Speech / Cognition: normal speech Psychiatric: A+Ox3, euthymic affect Genitourinary: + scrotal swelling (red and TTP) Results & Data Vital Signs (Past 12 Hours) Vital Signs Temp Pulse Pulse Resp BP BP Pulse Ox 09/20/19 14:05 82 16 208/94 H 97 09/20/19 12:10 36.5 C 51 L 20 179/80 H 98 Diagnostic Findings CTAP: 1. Enlarged scrotum with what appears to be either a large hydrocele versus developing abscess. 2. 7 cm somewhat irregular collection within the inferior aspect of the scrotum which potentially relates to a irregular testis versus internal collection or abscess. 3. Scrotal ultrasound is recommended as follow-up. 4. Soft tissue cellulitis anterior to the symphysis pubis as well as lateral aspects of the thighs as well as anterior abdominal wall. 5. Hepatic cirrhosis with a small amount of perihepatic ascites. 6. Scattered colonic diverticulosis with no evidence for diverticulitis. 7. Moderate right pleural effusion with components of right lower lobe a telectatic change. 8. Several reactive nodes in the inguinal regions bilaterally. Scrotal US: 1. The right as well as left testis appear normal with normal vascular flow. 2. Slightly complex thick-walled collection lateral to the right testis measuring 7 x 6 cm. 3. All findings are associated with considerable thickening of the scrotal wall. 4. Diagnostic considerations of the large somewhat thick-walled collection include a thick-walled hydrocele, old hematoma given the presence of trauma history,, with the possibility of a superimposed soft tissue cellulitis. 5. A focal abscess lateral to the right testis is not completely excluded Code Status & VTE Plan Code Status DNR/DNI per pt's wishes Pt states that when he was being resuscitated during his cardiac event 7 yrs ago, he was given a choice to come back and at that time he chose to do so. He states "it was so beautiful that I don't want to come back next time. I've done what I needed to do." VTE Prophylaxis Plan VTE Prophylaxis will be ordered: Yes PG Care Time/CCT Total # of Minutes Spent Total Time Spent with Patient: Total time spent is greater than 50% in coordination of care (as documented) at patient's floor/unit and/or counseling patient:
[2019-09-20] MEDS ORDERED: TURMERIC ROOT EXTRACT 1500 MG PO PRN (17:13)
[2019-09-20] MEDS ORDERED: MAGNESIUM HYDROXIDE SUSP 30 ML UDC PO PRN (17:13)
[2019-09-20] MEDS ORDERED: MILK THISTLE 1000 MG PO PRN (17:13)
[2019-09-20] MEDS ORDERED: DAPTOMYCIN IV SCH (17:13)
[2019-09-20] MEDS ORDERED: GLUCAGON FOR INJ 1 MG VIAL SQ PRN (17:13)
[2019-09-20] MEDS ORDERED: ACETAMINOPHEN 325 MG TAB PO PRN (17:13)
[2019-09-20] MEDS ORDERED: DEXTROSE 50% 50 ML SYRINGE IV PRN (17:13)
[2019-09-20] MEDS ORDERED: NON-FORMULARY MEDICATION (Coenzyme Q10 [Co Q-10] 100 MG) PO PRN (17:13)
[2019-09-20] MEDS ORDERED: GLUCOSE 10 TABS/TUBE PO PRN (17:13)
[2019-09-20] MEDS ORDERED: ONDANSETRON INJ 2 MG/ML 2 ML VIAL IV PRN (17:13)
[2019-09-20] MEDS ORDERED: CARBOHYDRATES FOR HYPOGLYCEMIA PO PRN (17:13)
[2019-09-20] MEDS ORDERED: GLUCOSE 40% GEL 15 GM TUBE PO PRN (17:13)
[2019-09-20] MEDS ORDERED: MAGNESIUM CITRATE 200 MG PO PRN (17:13)
[2019-09-20] MEDS: INSULIN ASPART 100 UNITS/ML 3 ML PEN SC SCH ×2 (17:56→22:12)
[2019-09-20] MEDS ORDERED: DAPTOmycin 350 MG in SYRINGE 0 ML IV SCH (18:30)
[2019-09-20] MEDS: PIPERACILLIN/TAZOBACTAM 4.5 GM in DEXTROSE 5% 100 ML IV SCH (20:40)
[2019-09-20] MEDS: [UNRECOGNIZED DRUG - SUPPLY] SCH (22:16)
[2019-09-21] MEDS: PIPERACILLIN/TAZOBACTAM 4.5 GM in DEXTROSE 5% 100 ML IV SCH ×2 (04:18→12:00)
[2019-09-21 05:46] LABS: Basophils # (auto) 0.02 K/uL (0-0.2); Basophils % (auto) 0.3 %; Eosinophils % (auto) 3.9 %; Hematocrit (blood only) 34.9 % (42-52); Hemoglobin 11.7 g/dL (14.0-18.0); Immature Granulocytes # (auto) 0.03 K/uL (0.00-0.02); Immature Granulocytes % (auto) 0.4 %; Lymphocytes % (auto) 14.4 %; Mean Corpuscular Hemoglobin 31.4 pg (25-34); Mean Corpuscular Hgb Conc 33.5 g/dL (32-36); Mean Corpuscular Volume 93.6 fL (80-100); Mean Platelet Volume 10.9 fL (7.4-10.4); Monocytes # (auto) 0.85 K/uL (0.11-0.59); Monocytes % (auto) 11.1 %; Neutrophils # (auto) 5.34 K/uL (1.4-6.5); Neutrophils % (auto) 69.9 %; Platelet Count 213 K/uL (130-400); RDW Coefficient of Variation 14.3 % (11.5-14.5); RDW Standard Deviation 48.7 fL (36.4-46.3); Red Blood Count 3.73 M/uL (4.7-6.1); White Blood Count 7.64 K/uL (4.8-10.8)
[2019-09-21 06:29] LABS: BUN Creatinine Ratio 22.6 (10-20); Calcium 8.3 mg/dl (8.5-10.1); Creatinine Clr Calc Pharmacy 44.7 ml/min; Est GFR (African American) 42.9
[2019-09-21] MEDS ORDERED: LEVOTHYROXINE SODIUM 75 MCG TABLET PO SCH (06:30)
[2019-09-21] MEDS ORDERED: FUROSEMIDE 40 MG TAB PO SCH (06:30)
[2019-09-21] MEDS ORDERED: INSULIN ASPART PER UNIT SQ SCH (09:00)
--- NOTE | 2019-09-21 10:25 | Urology Consultation ---
Date of Consultation September 21, 2019 Assessment & Plan (1) Cellulitis, scrotum: A/P 79-year-old male with improving cellulitis and edema of the scrotum. No evidence of abscess or collection requiring drainage on today's examination or imaging evaluation by my reading. Patient is improving clinically. Infection seems to be improving with appropriate antibiotic therapy. I suspect Keflex x10 to 14 days should suffice. Patient scrotal edema is multifactorial with infection being one of the triggers and the patient's other comorbidities contributing. Scrotal support and ice packs for supportive care. Worrisome signs and symptoms reviewed with the patient and patient's . We will plan on outpatient follow-up in a couple of weeks to ensure appropriate progression and resolution of his findings. However from a urologic perspective patient should be stable for discharge home later today. We will check a screening PSA and this patient with a history of intermittent compliance with medical care. Thank you for allowing us to participate in this patient's care. Please recall our service as needed for any further questions or concerns. (2) Scrotal edema: History of Present Illness Reason for Consultation: Scrotal cellulitis and swelling. 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 He is in the room today with his . His inpatient and ER notes are reviewed as well as his imaging studies. He was voiding outside, lost his balance and developed a scratch on the right side of his scrotum. This began developing worsening redness over the following 3 days but he resisted presentation to medical staff. He deferred presentation for approximately 1 to 2 weeks until he came into the ER at his 's insistence. Findings were consistent with cellulitis, not overly surprising in this vasculopathic and diabetic patient. He notes acute voiding difficulties associated with penile edema but feels that these have improved. He denies baseline intermittency, nocturia, postvoid dribbling or other bother. He feels that he is doing better compared to his presentation yesterday. Patient underwent CT scan imaging and scrotal ultrasound for staging per the emergency service. This demonstrated a fluid collection in the right-hand side which raised a concern for possible abscess. On personal review of the patient's imaging this seems more consistent with a reactive hydrocele on the right-hand side. A distended bladder is also present on CT scan imaging but patient reports that he was being diuresed at the time. Patient was admitted for intravenous antibiotics and urology consultation was requested. Patient reports that he has had a normal PSA done years ago but has not had one done recently. Patient also notes some peripheral edema which is improved with diuresis. Allergies Allergy/AdvReac Type Severity Reaction Status Date / Time cat dander Allergy Mild unknown Verified 03/24/19 11:29 ragweed pollen Allergy Unknown SHORTNESS Verified 03/24/19 11:29 OF BREATH lisinopril Allergy Verified 03/24/19 11:29 Xkozndj-Frr-Ezs Reductase Allergy Verified 09/20/19 13:18 Inhibitor Home Medications Home Medications Medication Instructions Recorded Confirmed Type coenzyme Q10 [Co Q-10] 100 mg PO DAILY PRN 08/11/18 09/20/19 History cholecalciferol (vitamin D3) 5,000 5,000 units PO TUTHSA cap 04/30/19 09/20/19 History unit capsule flash glucose scanning reader #1 ea 04/30/19 04/30/19 History garlic-parsley 1 tab PO DAILY tab 04/30/19 09/20/19 History lancets 33 gauge #100 ea 04/30/19 04/30/19 History magnesium citrate 100 mg tablet 200 mg PO DAILY PRN tab 04/30/19 09/20/19 History milk thistle 500 mg capsule 1,000 mg PO DAILY PRN cap 04/30/19 09/20/19 History pen needle, diabetic 32 gauge x #10 ea 04/30/19 04/30/19 History 5/32" sub-q insulin device, 40 unit #30 ea 04/30/19 04/30/19 History turmeric root extract 500 mg 1,500 mg PO DAILY PRN cap 04/30/19 09/20/19 History capsule flash glucose sensor #6 ea 08/25/19 Rx bilberry 100 mg PO DAILY 09/20/19 09/20/19 History furosemide 40 mg PO DAILYBB 09/20/19 09/20/19 History insulin aspart U-100 [Novolog 80 unit SUBCUT DAILY 09/20/19 09/20/19 History U-100 Insulin aspart] levothyroxine [Synthroid] 75 mcg PO DAILYBB 09/20/19 09/20/19 History Patient History Medical History Chronic venous stasis (Chronic) Diabetes (Chronic) Hypothyroid (Chronic) Surgical History S/P CABG x 3 (Chronic) Family History (Updated 09/20/19 @ 16:12 by Pauly Hernandez DO) Other No significant family history Social History Preferred Language: Uzbek Communication Ability: Effective Field Support Engineer Required: No Beliefs That Will Affect Care: None marital status: Current Living Situation: Foster Care current occupational status: retired Feels Safe at Home: Yes Smoking Status: Former smoker Second Hand Exposure: No ; Hx Alcohol Use: Yes Hx Substance Use: No Review of Systems Constitutional: no fever and no chills Eyes: no diplopia Ear, Nose, Mouth, Throat: no ear trauma Respiratory: no hemoptysis Cardiovascular: no chest pain Gastrointestinal: + abdominal pain; no nausea and no vomiting Genitourinary: + as per Subjective / HPI Musculoskeletal: no loss of height and no muscle weakness Integumentary: no acne and no boil Neurologic: no paralysis Psychiatric: no hopelessness Hematologic / Lymphatic: no lymphadenopathy Allergy / Immunological: no tongue swelling Physical Exam Constitutional: + obese; no acute distress Eyes: eyes not dysmorphic ENMT: Ears: no external ear abnormality Neck: trachea midline; no anterior neck swelling Respiratory: no respiratory distress and does not use accessory muscles Cardiovascular: Vessels: radial pulses present Gastrointestinal (Abdomen): Inspection/Auscultation: abdomen not distended Percussion/Palpation: abdomen soft; abdomen nontender Musculoskeletal: Head/Neck/Chest: normocephalic and neck supple Skin: Trauma: no hematoma Neurologic: awake; not obtunded Psychiatric: Orientation: oriented x 3 Genitourinary: Edematous, buried phallus with a mild to moderate erythema of the scrotum and without focal collection. Upper thigh and lower abdominal edema also present. No evidence of fluctuance or collection, no skin necrosis of breakdown, no signs or symptoms of Manuel's gangrene. Testes poorly palpated through thick scrotal edema. No phimosis present. Lymphatic: no lymphadenopathy Results & Data Vital Signs (Past 12 Hours) Vital Signs Temp Pulse Resp BP Pulse Ox 09/21/19 07:27 36.8 C 60 20 167/69 H 95 09/20/19 23:40 36.9 C 53 L 20 161/68 H 94 Laboratory Results Laboratory Results - last 48 hr 09/20/19 09/20/19 09/20/19 12:55 13:07 13:07 WBC 8.43 RBC 4.15 L Hgb 13.0 L Hct 39.1 L MCV 94.2 MCH 31.3 MCHC 33.2 RDW Std Deviation 49.4 H RDW Coeff of Malcolm 14.3 Plt Count 202 MPV 10.6 H Immature Gran % (Auto) 0.5 Neut % (Auto) 69.6 Lymph % (Auto) 16.1 Norman % (Auto) 10.0 Eos % (Auto) 3.6 Baso % (Auto) 0.2 Immature Gran # (Auto) 0.04 H Neut # (Auto) 5.87 Lymph # (Auto) 1.36 Norman # (Auto) 0.84 H Eos # (Auto) 0.30 Baso # (Auto) 0.02 Sodium 138 Potassium 3.8 Chloride 106 Carbon Dioxide 26 Anion Gap 6.0 BUN 37 H Creatinine 1.69 H Est Cr Clr Drug Dosing 45.8 Est GFR ( Amer) 44.1 Est GFR (Non-Af Amer) 38.1 BUN/Creatinine Ratio 21.6 H Glucose 209 H POC Glucose Lactate Calcium 9.2 Total Bilirubin 0.7 AST 19 ALT 25 Alkaline Phosphatase 191 H Total Protein 8.3 H Albumin 3.2 L Globulin 5.1 H Albumin/Globulin Ratio 0.6 L Urine Color Yellow Urine Appearance Clear Urine pH 5.0 Ur Specific [place] 1.010 Urine Protein 1+ H Urine Glucose (UA) Negative Urine Ketones Negative Urine Blood Trace H Urine Nitrite Negative Urine Bilirubin Negative Urine Urobilinogen Negative Ur Leukocyte Esterase Negative Urine WBC (Auto) 0 Urine RBC (Auto) 0-4 U Hyaline Cast (Auto) 0 U Epithel Cells (Auto) 0-5 Urine Bacteria (Auto) Negative 09/20/19 09/20/19 09/21/19 13:07 17:11 05:24 WBC 7.64 RBC 3.73 L Hgb 11.7 L Hct 34.9 L MCV 93.6 MCH 31.4 MCHC 33.5 RDW Std Deviation 48.7 H RDW Coeff of Malcolm 14.3 Plt Count 213 MPV 10.9 H Immature Gran % (Auto) 0.4 Neut % (Auto) 69.9 Lymph % (Auto) 14.4 Norman % (Auto) 11.1 Eos % (Auto) 3.9 Baso % (Auto) 0.3 Immature Gran # (Auto) 0.03 H Neut # (Auto) 5.34 Lymph # (Auto) 1.10 L Norman # (Auto) 0.85 H Eos # (Auto) 0.30 Baso # (Auto) 0.02 Sodium Potassium Chloride Carbon Dioxide Anion Gap BUN Creatinine Est Cr Clr Drug Dosing Est GFR ( Amer) Est GFR (Non-Af Amer) BUN/Creatinine Ratio Glucose POC Glucose 222 H Lactate 1.5 Calcium Total Bilirubin AST ALT Alkaline Phosphatase Total Protein Albumin Globulin Albumin/Globulin Ratio Urine Color Urine Appearance Urine pH Ur Specific [place] Urine Protein Urine Glucose (UA) Urine Ketones Urine Blood Urine Nitrite Urine Bilirubin Urine Urobilinogen Ur Leukocyte Esterase Urine WBC (Auto) Urine RBC (Auto) U Hyaline Cast (Auto) U Epithel Cells (Auto) Urine Bacteria (Auto) 09/21/19 09/21/19 05:24 06:33 WBC RBC Hgb Hct MCV MCH MCHC RDW Std Deviation RDW Coeff of Malcolm Plt Count MPV Immature Gran % (Auto) Neut % (Auto) Lymph % (Auto) [place] % (Auto) Eos % (Auto) Baso % (Auto) Immature Gran # (Auto) Neut # (Auto) Lymph # (Auto) Norman # (Auto) Eos # (Auto) Baso # (Auto) Sodium 138 Potassium 3.8 Chloride 107 Carbon Dioxide 26 Anion Gap 5.0 BUN 39 H Creatinine 1.73 H Est Cr Clr Drug Dosing 44.7 Est GFR ( Amer) 42.9 Est GFR (Non-Af Amer) 37.0 BUN/Creatinine Ratio 22.6 H Glucose 126 H POC Glucose Lactate Calcium 8.3 L Total Bilirubin AST ALT Alkaline Phosphatase Total Protein Albumin Globulin Albumin/Globulin Ratio Urine Color Urine Appearance Urine pH Ur Specific [place] Urine Protein Urine Glucose (UA) Urine Ketones Urine Blood Urine Nitrite Urine Bilirubin Urine Urobilinogen Ur Leukocyte Esterase Urine WBC (Auto) Urine RBC (Auto) U Hyaline Cast (Auto) U Epithel Cells (Auto) Urine Bacteria (Auto) PG Care Time/CCT Total # of Minutes Spent Total Time Spent with Patient: Total time spent is greater than 50% in coordination of care (as documented) at patient's floor/unit and/or counseling patient:
[2019-09-21] MEDS: INSULIN ASPART 100 UNITS/ML 3 ML PEN SC SCH ×2 (10:55→13:52)
[2019-09-21] MEDS: [UNRECOGNIZED DRUG - SUPPLY] SCH ×2 (10:58→13:52)
[2019-09-21] MEDS ORDERED: DAPTOmycin 350 MG in SYRINGE 0 ML IV SCH (14:00)
[2019-09-21] MEDS ORDERED: cephALEXin 500 MG CAP PO SCH (21:00)
[2019-09-23] MEDS ORDERED: CHOLECALCIFEROL 1,000 UNITS TAB PO SCH (09:00)
--- NOTE | 2019-09-28 20:20 | Discharge Summary ---
Date of Service September 21, 2019 Admission HPI Per Admitting Provider 79 y/o M c/o scrotal pain and swelling. Pt states that he was working in his yard about 2 weeks ago. He stopped to urinate and had a slight loss of balance that caused him to lean into some recently cut brush. He noted a small laceration at that time with a very slight amount of bleeding that did not seem like much overall to him. He started to have scrotal pain, swelling, and redness a few days later that had continued to increase. At this point, he has to sit on the edge furniture because his scrotum is too tender to sit back. He has no issues urinating--no pain, decrease in urination, issues with flow. No prior hx of similar episodes. He had 48 hrs of fever and diarrhea last week, but this resolved and no further issues. He feels fine otherwise. Pt denies SOB, chest pain, abd pain, n/v, LE pain. He has chronic LE swelling that waxes and wanes. He did take his PRN lasix 2 days ago for some swelling in the thighs and this is back to usual. LE redness is also chronic. Principal Diagnosis scrotum cellulitis Discharge Exam Constitutional: WD/WN, vitals as above Eyes: normal visual vogt by confrontation and + anicteric sclerae Neck: normal visual inspection and trachea midline Respiratory: normal respiratory effort, lungs clear to auscultation Cardiovascular: Rate/Rhythm: regular rate and regular rhythm Gastrointestinal (Abdomen): Inspection/Auscultation: + abdomen distended Percussion/Palpation: abdomen soft; abdomen nontender Musculoskeletal: Head/Neck/Chest: normocephalic and head atraumatic chronic LE edema, peripheral pulses intact Skin: no rashes, warm and dry b/l foot redness, appears chronic multiple LE bandages noted, clean and dry Neurologic: awake; not confused Speech / Cognition: normal speech Psychiatric: A+Ox3, euthymic affect Genitourinary: + scrotal swelling noted Discharge Data Allergies Allergy/AdvReac Type Severity Reaction Status Date / Time cat dander Allergy Mild unknown Verified 03/24/19 11:29 ragweed pollen Allergy Unknown SHORTNESS Verified 03/24/19 11:29 OF BREATH cephalexin Allergy pimple Verified 09/26/19 12:59 like rash lisinopril Allergy Verified 03/24/19 11:29 Udfcqqe-Ado-Imp Reductase Allergy Verified 09/20/19 13:18 Inhibitor Consultations 09/20/19 15:15 ED Decision to Admit Stat 09/20/19 15:19 ED Decision to Admit Stat 09/20/19 17:13 Consult Urology Routine Ordered Studies 09/20/19 12:40 CT abd pelvis IV con only Stat US scrotum/testicle Stat Hospital Course (1) Cellulitis, scrotum: ?? of abscess on CT AP and US Started on dapto/zosyn in the ED, will continue WBC WNL, afebrile Lactic acid WNL Appreciate input from Urology. No evidence of abscess or collection requiring drainage on today's examination or imaging evaluation by my reading. Patient is improving clinically. Infection seems to be improving with appropriate antibiotic therapy. I suspect Keflex x10 to 14 days should suffice. Patient scrotal edema is multifactorial with infection being one of the triggers and the patient's other comorbidities contributing. Scrotal support and ice packs for supportive care. Worrisome signs and symptoms reviewed with the patient and patient's . We will plan on outpatient follow-up in a couple of weeks to ensure appropriate progression and resolution of his findings. However from a urologic perspective patient should be stable for discharge home later today. We will check a screening PSA and this patient with a history of intermittent compliance with medical care. (2) Hypothyroidism: continue home meds (3) CKD (chronic kidney disease) stage 3, GFR 30-59 ml/min: Baseline cr is around 1.8, 1.6 on admission (4) Chronic diastolic (congestive) heart failure: continue home meds Monitor with increased IVF (5) S/P CABG (coronary artery bypass graft): 7 yrs ago, stable (6) Uncontrolled type 2 diabetes mellitus with insulin therapy: Insulin pump at home, prefers to use during admission if short stay (7) Venous stasis ulcers of both lower extremities: Follows with Wound care (8) DVT prophylaxis: SCDs Total Time Total Time Spent Total Time Spent (In Minutes): 32 Total Time Includes: Examination of the Patient, Discharge Planning and Medication Reconciliation Discharge Plan Discharge Items Patient Disposition: Home - Self-Care Reason For Visit: SCROTAL CELLULITIS Discharge Diagnosis: scrotal cellulitis Activity: Resume your previous activity Non-emergency contact: Primary Care Provider Call non-emergency contact if: you have any medication questions Follow-up/Referrals: Roc Casanova III, MD [Primary Care Provider] - Diet: Carb Consistent or DM2 Addtl Attending Provider Instructions: You have been hospitalized for an acute medical problem. During your stay at [facility], we have made an effort to correct the problem that brought you to the hospital while keeping you as comfortable as possible. Antibioticss were used to bring your condition under control and your discharge instructions will include directions for any medications you should take after leaving the hospital. Please make sure you see your Primary Care Provider as part of your follow up plan. Pending Studies at Discharge: No Stand-Alone Forms: My [facility] Angiodroid, Smoking Cessation Medications and DC Order Prescriptions: Continued (DME) pen needle, diabetic [BD Ultra-Fine Yanique Pen Needle] 32 gauge x 5/32" needle See Dose Instructions .ROUTE .MEDSUPPLY Qty: 10 RF: 0 (DME) FreeStyle Gaetano 14 Day Silverpeak misc See Dose Instructions .ROUTE .MEDSUPPLY Qty: 1 RF: 0 (DME) lancets [OneTouch Delica Lancets] 33 gauge misc See Dose Instructions .ROUTE .MEDSUPPLY Qty: 100 RF: 0 garlic-parsley tablet 1 tab PO DAILY RF: 0 milk thistle 500 mg capsule 1,000 mg PO DAILY PRN (Reason: Other) RF: 0 (DME) V-GO 40 device See Dose Instructions .ROUTE .MEDSUPPLY Qty: 30 RF: 0 turmeric root extract 500 mg capsule 1,500 mg PO DAILY PRN (Reason: Chronic Pain) RF: 0 magnesium citrate 100 mg tablet 200 mg PO DAILY PRN (Reason: Magnesium Deficiency) RF: 0 cholecalciferol (vitamin D3) 5,000 unit capsule 5,000 units PO TUTHSA RF: 0 bilberry 100 mg Capsule 100 mg PO DAILY RF: 0 furosemide 40 mg tablet 40 mg PO DAILYBB RF: 0 levothyroxine [Synthroid] 75 mcg tablet 75 mcg PO DAILYBB RF: 0 Novolog U-100 Insulin aspart 100 unit/mL solution 80 unit subcut DAILY RF: 0 coenzyme Q10 [Co Q-10] 100 mg Capsule 100 mg PO DAILY PRN (Reason: Other) RF: 0 No Action (DME) FreeStyle Gaetano 14 Day Sensor Kit See Dose Instructions .ROUTE .MEDSUPPLY Qty: 2 RF: 3 sulfamethoxazole-trimethoprim [Bactrim DS] 800-160 mg tablet 1 tab PO BID Qty: 20 RF: 0 Discharge Orders: Discharge Order (Routine); Ordered 09/21/19 Ordered By: Tho Ozuna Admission Data Admit Date/Time: 09/20/19 16:00 Attending Provider: Tho Ozuna Admit Provider: Pauly Hernandez Primary Care Provider: Roc Casanova III Other Providers: Kvng Lawrence I. Other Interventions: Discharge Summary Assessment (RN) Last Done: 09/21/19 17:31 DC Date/Time DO NOT enter until pt leaves facility: 09/21/19 18:27
--- NOTE | 2019-10-03 12:08 | Coding Query ---
A supporting diagnosis is required for the test/procedure performed on this patient in order for us to be reimbursed by the patient's insurance. Please provide a supporting diagnosis for the following test/procedure listed below next to the test name along with your signature. *If there is no additional diagnosis for this patient that would support the following test/procedure please document that below next to the test/procedure. Test(s)/Procedure(s) that require a supporting diagnosis: PSA DIAGNOSIS: Prostate cancer screening Provider Signature: Date: Thank you Ana Alston [facility] Information Management Once completed, please kindly fax back to [phone] For questions please call [phone] ARABELLA
== END 2019-09-21 18:27 | disposition home or self-care (01) | DRG 728 ==
LOC: ED 12:05 → 4W 16:00 → SUATTDRO 16:00 → INTOOBSV 16:00 → 4W 16:43

== ENCOUNTER 2020-07-26 11:49 | Inpatient (IN) ==
[2020-07-26] MEDS ORDERED: PIPERACILLIN/TAZOBACTAM 4.5 GM/120 ML BAG IV ONE (12:09)
[2020-07-26] MEDS ORDERED: PIPERACILL/TAZOBAC CONSULT ACTIVE PRN (12:09)
[2020-07-26] MEDS ORDERED: BUMETANIDE 2 MG in SYRINGE 0 ML IV ONE (12:11)
--- NOTE | 2020-07-26 12:19 | Emergency Department Note ---
Impression & Plan SOB (shortness of breath), Cellulitis, Pedal edema, Failure of outpatient treatment ED Provider Note NAME: MARY BETH HERMAN AGE: 79 SEX: M : 1940 ARRIVES VIA: Ambulance INFORMANT: [Patient][ems, nurses] ED PROVIDER(S): [Lyndon Cobb MD] CHIEF COMPLAINT: Edema HISTORY OF PRESENT ILLNESS: The patient is a 79-year-old male who presents to the ER with worsening leg edema for the last several months. Patient states he does feel somewhat short of breath and fluid overloaded. He has been going to the wound care center. Today, at the visit, they called the ambulance and sent him here as his legs were worsening. Patient states that he stopped taking his diuretic. He stopped the diuretic in the last 24 hours because, he has to try to run to the bathroom and he does not really urinate a lot. He does not think the diuretic is really working. He did take his dose yesterday, not today. There has been no fever, he has had no cough or congestion. No diarrhea. The patient states that it is hard to urinate because his penis is swollen but he is still able to go. REVIEW OF SYSTEMS: See HPI for pertinent positives and negatives. A total of ten systems were reviewed and were otherwise negative. PMHx/PSHx: See Below SOCIAL HISTORY: See Below. PHYSICAL EXAM: GENERAL: Patient is in no acute distress. HEENT: No acute trauma, normocephalic atraumatic, mucous membranes moist, no nasal congestion, no scleral icterus. NECK: No stridor, no adenopathy, no meningismus, trachea is midline. LUNGS: Clear to auscultation bilaterally, no wheeze, no rhonchi, breath sounds equal. HEART: Without murmurs gallops or rubs, regular rate and rhythm. ABDOMEN: Soft, nontender, bowel sounds positive, no hernias, no peritonitis. There is some abdominal wall edema noted. Groin: There is penile and scrotal edema present, no erythema. EXTREMITIES: No cyanosis, significant bilateral pedal edema with erythema and warmth. There are some fluid-filled blisters on the lower extremities. Full range of motion of all the joints without pain or difficulty, no signs for acute trauma. NEUROLOGIC: Oriented x 3, no acute motor or sensory deficits, no focal weakness. SKIN: No rash, no jaundice, no diaphoresis. DIFFERENTIAL DIAGNOSIS: CHF, DVT, fluid overload, electrolyte abnormality, renal failure, urinary retention, UTI, dysrhythmia, [place], cellulitis, bacteremia or sepsis. EMERGENCY DEPARTMENT COURSE/PROCEDURES: ECG: Indication was shortness of breath. The ECG shows what appears to be atrial fibrillation. The possibility of a sinus rhythm with a very long first- degree AV block was entertained however, the baseline was poor and making a rhythm interpretation difficult. There was a left bundle branch block. The QTc was 445. No obvious PVCs, no ST elevation. Compared to an ECG from 12 January 2016, the QRS has lengthened. The long first-degree AV block seen previously was not obvious today. Continuous Cardiac Monitoring: An order was placed for continuous cardiac monitoring. The monitor shows a rate of 53 with atrial fibrillation. Bladder scan did not show any significant retention. MEDICAL DECISION MAKING: There is no leukocytosis or concerning anemia. There is a normal platelet count. No coagulopathy. Creatinine was elevated at 1.68, this is baseline for the patient. Alk phos slightly elevated, no other liver enzyme elevations. BNP was elevated at over 2000, this is consistent with fluid overload. Urinalysis did not show infection. Chest film showed an elevated right hemidiaphragm, there was no concerning CHF. Bilateral lower extremity ultrasound did not show any evidence for DVT. Lactic acid level was not elevated making sepsis less likely. EKG shows what appears to be in A. fib although, there is a poor ba seline. There was no acute ischemic change. Cardiac enzyme testing x1 is not consistent with acute cardiac injury. On exam, the patient's legs are quite edematous, warm and appeared cellulitic. Patient was given IV Bumex, 2 mg, he did diurese with his medication. Prior to the administration of Bumex, a bladder scan was performed, there was no significant urinary retention--I did not think a Murray catheter was necessary. Patient was given a dose of IV Zosyn for antibiotic coverage. Patient is worsening despite outpatient care. His legs are more swollen, the legs are more red. His penis and scrotum are swollen. He is basically failing outpatient management. He needs IV diuresis and IV antibiotics. I do think a hospital stay is warranted. I spoke to the patient and case management. The on-call hospitalist was consulted. Past Med/Surg History Medical History Acute kidney injury BPH (benign prostatic hyperplasia) CAD (coronary artery disease) Cardiac murmur Cataract Chronic diastolic (congestive) heart failure Chronic venous insufficiency Chronic venous stasis CKD (chronic kidney disease) Diabetes mellitus, type 2 IDDM Diabetic foot ulcer associated with type 2 diabetes mellitus Diabetic nephropathy Diabetic retinopathy Dysphagia Esophageal dysmotility History of epistaxis History of gastric ulcer History of GI bleed History of sleep apnea Hypercholesterolemia Hypertension Hypothyroidism Insulin pump in place Ischemic cardiomyopathy LVH (left ventricular hypertrophy) Lymphedema Microalbuminuria Myocardial infarction 2011 Neuropathy Protein in urine Secondary hyperparathyroidism of renal origin Swallowing dysfunction Trigeminal neuralgia of right side of face Uncontrolled type 2 diabetes mellitus with insulin therapy Vitamin D deficiency Surgical History History of appendectomy History of cardiac catheterization 2011 - [place] --> CABG History of colonoscopy (01/23/07) Dr. Gore, sigmoid diverticulosis, otherwise normal, recheck recommended 10 years History of coronary artery bypass graft 3 V[facility]SELS - 2011 - follows w/ Dr. Calderon (reports last visit 6-7 years ago) History of esophagogastroduodenoscopy (EGD) History of left cataract surgery History of nasal cauterization History of tonsillectomy Family History Mother Family history of diabetes mellitus Ulcerative colitis Uncle Family history of diabetes mellitus Aunt Family history of diabetes mellitus Unknown Hypertension Other Heart disease History of tooth extraction No family history of adverse response to anesthesia No family history of bleeding disorder Stroke Denies family history of Ovarian cancer Prostate cancer Coronary heart disease Breast cancer Scrotal edema Colorectal cancer Social History Smoking Status: Never smoker Second Hand Exposure: Yes; Hx Alcohol Use: No Hx Substance Use: No Preferred Language: Portuguese Communication Ability: Effective Visual Impairment: No Limitations Hearing Ability: Normal Fitness Floor Attendant Required: No Beliefs That Will Affect Care: None marital status: Current Living Situation: Spouse current occupational status: retired Feels Safe at Home: Yes Childhood Exposure to Second-Hand Smoke: No caffeine: Yes during the past year weight has: remained stable Dental Care, Regularly: Yes Seatbelt Use: never Sunscreen Use: No Assistive Devices: Cane Allergies Allergies Allergy/AdvReac Type Severity Reaction Status Date / Time cephalexin Allergy Intermediate pimple Verified 07/26/20 13:25 like rash cat dander Allergy Mild NO ALLERGY Verified 07/26/20 13:25 PATIENT PREFERENCE ragweed pollen Allergy Unknown SHORTNESS Verified 07/26/20 13:25 OF BREATH lisinopril AdvReac Mild Cough Verified 07/26/20 13:25 Bcpvdun-Dtr-Yge Reductase AdvReac Mild SEE NOTE Verified 07/26/20 13:25 Inhibitor NO ALLERGY Home Meds Home Medications Medication Instructions Recorded Confirmed bilberry 100 mg PO DAILY 09/20/19 07/26/20 Urinozinc Prostate Formula 100 mg PO DAILY 10/23/19 07/26/20 insulin aspart U-100 100 unit/mL 50 unit SUBCUT DAILY 02/13/20 07/26/20 subcutaneous solution Lactobac #2-Bifido #1-S. therm 0 mg PO DAILY 06/16/20 07/26/20 Marshmallow Root See Rx Instructions PO BID 06/16/20 07/26/20 milk thistle 500 mg capsule 1,000 mg PO DAILY cap 06/16/20 07/26/20 olive leaf extract 0 mg PO DAILY 06/16/20 07/26/20 simethicone 125 mg capsule 125 mg PO DAILY PRN 06/16/20 07/26/20 vitamins A,C,S-cupa-qnxtbr 1 tab PO BID 06/16/20 07/26/20 Super K Complex 0 mg PO DAILY 06/30/20 07/26/20 acetylcarnitine 1 g PO DAILY 07/26/20 07/26/20 garlic 5,000 mg PO DAILY 07/26/20 07/26/20 Previous Rx's Medication Instructions Recorded levothyroxine 75 mcg tablet 75 mcg PO DAILY #90 tab 12/12/19 mupirocin 2 % topical ointment 1 appln TOP BID #22 gm 03/19/20 bumetanide 1 mg tablet 2 mg PO BID #120 tab 06/30/20 calcitriol 0.5 mcg capsule 0.5 mcg PO UD #45 cap 06/30/20 gentamicin 0.1 % topical ointment 1 applic TOPICAL DAILY 14 Days #30 07/08/20 g Results & Data (ED) Vital Signs Vital Signs - 24 hr 07/26/20 12:09 07/26/20 12:21 07/26/20 12:22 Temperature 36.5 C Temperature Source Oral Pulse Rate 62 62 Pulse Rate [Apical] 56 L Pulse Rate from SpO2 Sensor Respiratory Rate 22 22 22 Respiratory Effort / Characteristics Spontaneous Labored Non-Labored Labored Respiratory Depth Normal Normal Respiratory Pattern Regular Regular Blood Pressure 178/72 H Blood Pressure [Right Arm] 160/74 H Blood Pressure Mean 107 Blood Pressure Mean [Right Arm] 102 Pulse Oximetry 95 95 95 Oxygen Delivery Method Room Air Room Air Room Air Sepsis Recent Fever Within 48 Hours No Sepsis New/Unexplained Change in Mental Status No Sepsis Action Taken by Nursing No Action Required 07/26/20 13:00 07/26/20 13:30 07/26/20 14:00 Temperature Temperature Source Pulse Rate 54 L 43 L 54 L Pulse Rate [Apical] Pulse Rate from SpO2 Sensor 52 L 44 L 56 L Respiratory Rate 18 20 24 Respiratory Effort / Characteristics Respiratory Depth Respiratory Pattern Blood Pressure 158/78 H 150/72 H 142/76 H Blood Pressure [Right Arm] Blood Pressure Mean 112 89 113 Blood Pressure Mean [Right Arm] Pulse Oximetry 93 93 94 Oxygen Delivery Method Sepsis Recent Fever Within 48 Hours Sepsis New/Unexplained Change in Mental Status Sepsis Action Taken by Nursing 07/26/20 14:30 Temperature Temperature Source Pulse Rate 52 L Pulse Rate [Apical] Pulse Rate from SpO2 Sensor 54 L Respiratory Rate 19 Respiratory Effort / Characteristics Respiratory Depth Respiratory Pattern Blood Pressure 157/78 H Blood Pressure [Right Arm] Blood Pressure Mean 85 Blood Pressure Mean [Right Arm] Pulse Oximetry 95 Oxygen Delivery Method Sepsis Recent Fever Within 48 Hours Sepsis New/Unexplained Change in Mental Status Sepsis Action Taken by Alf Medications Current Medication List: was personally reviewed by me Laboratory Data Attestation: I reviewed the patient's lab results. Result diagrams: 07/26/20 12:38 07/26/20 12:38 Lab Results 07/26/20 07/26/20 07/26/20 Range/Units 12:38 12:38 12:38 WBC 6.27 (4.8-10.8) K/uL RBC 4.14 L (4.7-6.1) M/uL Hgb 13.1 L (14.0-18.0) g/dL Hct 40.9 L (42-52) % MCV 98.8 (80-100) fL MCH 31.6 (25-34) pg MCHC 32.0 (32-36) g/dL RDW Std Deviation 54.9 H (36.4-46.3) fL RDW Coeff of Malcolm 15.2 H (11.5-14.5) % Plt Count 155 (130-400) K/uL MPV 11.0 H (7.4-10.4) fL Immature Gran % (Auto) 0.3 % Neut % (Auto) 68.4 % Lymph % (Auto) 14.7 % [place] % (Auto) 13.9 % Eos % (Auto) 2.4 % Baso % (Auto) 0.3 % Neut # (Auto) 4.29 (1.4-6.5) K/uL Lymph # (Auto) 0.92 L (1.2-3.4) K/uL [place] # (Auto) 0.87 H (0.11-0.59) K/uL Eos # (Auto) 0.15 (0-0.5) K/uL Baso # (Auto) 0.02 (0-0.2) K/uL Immature Gran # (Auto) 0.02 (0.00-0.02) K/uL PT 11.7 (9.0-12.0) Seconds INR 1.1 (0.9-1.1) APTT 27.5 (21.0-31.0) Seconds PTT Ratio 1.0 Sodium 143 (136-145) mmol/L Potassium 4.1 (3.5-5.1) mmol/L Chloride 111 H (98-107) mmol/L Carbon Dioxide 26 (21-32) mmol/L Anion Gap 6.0 (3-11) BUN 46 H (7-18) mg/dl Creatinine 1.68 H (0.6-1.4) mg/dl Est Cr Clr Drug Dosing 46.5 ml/min Est GFR ( Amer) 44.4 Est GFR (Non-Af Amer) 38.3 BUN/Creatinine Ratio 27.5 H (10-20) Glucose 96 (70-99) mg/dl Lactate (0.4-2.0) mmol/L Calcium 8.8 (8.5-10.1) mg/dl Magnesium 2.2 (1.8-2.4) mg/dl Total Bilirubin 0.7 (0.2-1) mg/dl AST 21 (15-37) U/L ALT 22 (12-78) U/L Alkaline Phosphatase 183 H (45-117) U/L Troponin I 0.029 (0-0.045) ng/ml NT-Pro-B Natriuret Pep 2621 H (0-1800) pg/ml Total Protein 7.4 (6.4-8.2) gm/dl Albumin 3.0 L (3.4-5.0) gm/dl Globulin 4.4 H (2.5-4.0) gm/dl Albumin/Globulin Ratio 0.7 L (0.9-2) Urine Color Urine Appearance (Clear) Urine pH (4.5-7.5) Ur Specific [place] (1.000-1.030) Urine Protein (Negative) Urine Glucose (UA) (Negative) Urine Ketones (Negative) Urine Blood (Negative) Urine Nitrite (Negative) Urine Bilirubin (Negative) Urine Urobilinogen (Negative) Ur Leukocyte Esterase (Negative) Urine WBC (Auto) (0-5) /hpf Urine RBC (Auto) (0-4) /hpf U Hyaline Cast (Auto) (0-5) /lpf U Epithel Cells (Auto) (0-5) /lpf Urine Bacteria (Auto) (Negative) 07/26/20 07/26/20 Range/Units 12:38 14:44 WBC (4.8-10.8) K/uL RBC (4.7-6.1) M/uL Hgb (14.0-18.0) g/dL Hct (42-52) % MCV (80-100) fL MCH (25-34) pg MCHC (32-36) g/dL RDW Std Deviation (36.4-46.3) fL RDW Coeff of Malcolm (11.5-14.5) % Plt Count (130-400) K/uL MPV (7.4-10.4) fL Immature Gran % (Auto) % Neut % (Auto) % Lymph % (Auto) % [place] % (Auto) % Eos % (Auto) % Baso % (Auto) % Neut # (Auto) (1.4-6.5) K/uL Lymph # (Auto) (1.2-3.4) K/uL [place] # (Auto) (0.11-0.59) K/uL Eos # (Auto) (0-0.5) K/uL Baso # (Auto) (0-0.2) K/uL Immature Gran # (Auto) (0.00-0.02) K/uL PT (9.0-12.0) Seconds INR (0.9-1.1) APTT (21.0-31.0) Seconds PTT Ratio Sodium (136-145) mmol/L Potassium (3.5-5.1) mmol/L Chloride (98-107) mmol/L Carbon Dioxide (21-32) mmol/L Anion Gap (3-11) BUN (7-18) mg/dl Creatinine (0.6-1.4) mg/dl Est Cr Clr Drug Dosing ml/min Est GFR ( Amer) Est GFR (Non-Af Amer) BUN/Creatinine Ratio (10-20) Glucose (70-99) mg/dl Lactate 1.8 (0.4-2.0) mmol/L Calcium (8.5-10.1) mg/dl Magnesium (1.8-2.4) mg/dl Total Bilirubin (0.2-1) mg/dl AST (15-37) U/L ALT (12-78) U/L Alkaline Phosphatase (45-117) U/L Troponin I (0-0.045) ng/ml NT-Pro-B Natriuret Pep (0-1800) pg/ml Total Protein (6.4-8.2) gm/dl Albumin (3.4-5.0) gm/dl Globulin (2.5-4.0) gm/dl Albumin/Globulin Ratio (0.9-2) Urine Color Yellow Urine Appearance Clear (Clear) Urine pH 5.0 (4.5-7.5) Ur Specific [place] 1.019 (1.000-1.030) Urine Protein 2+ H (Negative) Urine Glucose (UA) Negative (Negative) Urine Ketones Negative (Negative) Urine Blood Trace H (Negative) Urine Nitrite Negative (Negative) Urine Bilirubin Negative (Negative) Urine Urobilinogen Negative (Negative) Ur Leukocyte Esterase Negative (Negative) Urine WBC (Auto) 1-5 (0-5) /hpf Urine RBC (Auto) 0-4 (0-4) /hpf U Hyaline Cast (Auto) 5-10 H (0-5) /lpf U Epithel Cells (Auto) 10-20 H (0-5) /lpf Urine Bacteria (Auto) Negative (Negative) Administered Medications Discontinued Medications Piperacillin Sod/Tazobactam Sod (Zosyn) 4.5 gm in 120 mls @ 240 mls/hr IV NOW ONE Stop: 07/26/20 12:38 Last Infusion: 07/26/20 14:16 Dose: 0 mls/hr Documented by: [id number] Admin: 07/26/20 13:37 Dose: 240 mls/hr Documented by: [id number] Bumetanide 2 mg/ Syringe 8 mls @ 4 mls/min IV ONE ONE Stop: 07/26/20 12:12 Last Admin: 07/26/20 14:08 Dose: 4 mls/min Documented by: [id number] Imaging Data Radiologist's Impression: XR chest 1V portable HISTORY: 79 years-old Male SOB acute shortness of breath COMPARISON: Chest radiograph 03/01/2019 TECHNIQUE: Portable AP view the chest FINDINGS: Cardiac silhouette is enlarged, unchanged. Prior median sternotomy with CABG. There is new right hemidiaphragmatic elevation. Pulmonary vascular congestion with bibasilar opacities. Mild interstitial coarsening. No pneumothorax or large pleural effusion. Probable trace right pleural effusion. Degenerative changes of the shoulders and spine. IMPRESSION: 1. Cardiomegaly with mild pulmonary edema. 2. New right hemidiaphragmatic elevation with bibasilar opacities suggestive of atelectasis versus pneumonitis. ULTRASOUND BILATERAL LOWER EXTREMITY VENOUS CLINICAL HISTORY: Lower extremity edema. COMPARISON STUDY: Bilateral lower extremity venous ultrasound dated 01/13/2016. TECHNIQUE: Real-time, grayscale, and color Doppler sonography of the deep veins of the right and left lower extremity was performed from the inguinal crease to the calf. Compression and augmentation were utilized. FINDINGS: There is no sonographic evidence of deep venous thrombosis identified in the right or left lower extremity. The common femoral, superficial femoral, and popliteal veins are patent and normally compressible bilaterally. The greater saphenous vein and the profunda femoris vein at the junction with the common femoral vein are clear in both legs. The visualized calf veins are patent bilaterally. Right-sided calf vessels were partially obscured by overlying bandage material. IMPRESSION: There is no sonographic evidence of deep venous thrombosis identified in the right or left lower extremity. Discharge Plan Visit Data Chief Complaint: Edema To Extremity ED Provider: Lyndon Cobb Discharge Problem: SOB (shortness of breath), Cellulitis, Pedal edema, Failure of outpatient treatment Patient Disposition: Admitted As Inpatient Condition: Fair Forms Stand Alone Forms: My [facility] Prescriptions Prescriptions: No Action levothyroxine [Synthroid] 75 mcg tablet 75 mcg PO DAILY Qty: 90 RF: 3 mupirocin 2 % ointment 1 appln TOP BID Qty: 22 RF: 4 gentamicin 0.1 % ointment 1 applic topical DAILY 14 Days Qty: 30 RF: 1 insulin aspart U-100 [Novolog U-100 Insulin aspart] 100 unit/mL solution 50 unit subcut DAILY RF: 0 bumetanide 1 mg tablet 2 mg PO BID Qty: 120 RF: 3 calcitriol 0.5 mcg capsule 0.5 mcg PO UD Qty: 45 RF: 3 milk thistle 500 mg capsule 1,000 mg PO DAILY RF: 0 vitamins A,C,O-hueq-swivmz 1 tab PO BID RF: 0 Marshmallow Root See Rx Instructions PO BID RF: 0 Lactobac #2-Bifido #1-S. therm 0 mg PO DAILY RF: 0 simethicone [Gas-X Extra Strength] 125 mg capsule 125 mg PO DAILY PRN (Reason: Gastric Reflux) RF: 0 olive leaf extract 0 mg PO DAILY RF: 0 Super K Complex 0 mg PO DAILY RF: 0 bilberry 100 mg Capsule 100 mg PO DAILY RF: 0 Urinozinc Prostate Formula 100 mg Tablet 100 mg PO DAILY RF: 0 garlic 1,000 mg Capsule 5,000 mg PO DAILY RF: 0 acetylcarnitine 1 gram /scoop Powder 1 g PO DAILY RF: 0 Referrals Referrals: Roc Casanova III, MD [Primary Care Provider] - Discharge Problem: Cellulitis Qualifiers: Site of cellulitis: extremity Site of cellulitis of extremity: lower extremity Laterality: unspecified laterality Qualified Code(s): L03.119 - Cellulitis of unspecified part of limb
[2020-07-26 12:54] LABS: Basophils # (auto) 0.02 K/uL (0-0.2); Basophils % (auto) 0.3 %; Eosinophils # (auto) 0.15 K/uL (0-0.5); Eosinophils % (auto) 2.4 %; Hematocrit (blood only) 40.9 % (42-52); Hemoglobin 13.1 g/dL (14.0-18.0); Immature Granulocytes # (auto) 0.02 K/uL (0.00-0.02); Immature Granulocytes % (auto) 0.3 %; Lymphocytes # (auto) 0.92 K/uL (1.2-3.4); Lymphocytes % (auto) 14.7 %; Mean Corpuscular Hemoglobin 31.6 pg (25-34); Mean Corpuscular Volume 98.8 fL (80-100); Monocytes # (auto) 0.87 K/uL (0.11-0.59); Monocytes % (auto) 13.9 %; Neutrophils # (auto) 4.29 K/uL (1.4-6.5); Neutrophils % (auto) 68.4 %; Platelet Count 155 K/uL (130-400); RDW Coefficient of Variation 15.2 % (11.5-14.5); RDW Standard Deviation 54.9 fL (36.4-46.3); Red Blood Count 4.14 M/uL (4.7-6.1); White Blood Count 6.27 K/uL (4.8-10.8)
--- NOTE | 2020-07-26 12:58 | XRay Report ---
XR chest 1V portable HISTORY: 79 years-old Male SOB acute shortness of breath COMPARISON: Chest radiograph 03/01/2019 TECHNIQUE: Portable AP view the chest FINDINGS: Cardiac silhouette is enlarged, unchanged. Prior median sternotomy with CABG. There is new right donato diaphragmatic elevation. Pulmonary vascular congestion with bibasilar opacities. Mild interstitial co arsening. No pneumothorax or large pleural effusion. Probable trace right pleural effusion. Degenerat beatriz changes of the shoulders and spine. IMPRESSION: 1. Cardiomegaly with mild pulmonary edema. 2. New right hemidiaphragmatic elevation with bibasilar opacities suggestive of atelectasis versus pn eumonitis. ACT 112: Negative or not required by law. The above report was generated using voice recognition software. It may contain grammatical, syntax o r spelling errors. Electronically signed by: Viral Solomon M.D. 07/26/2020 12:57 PM
[2020-07-26 13:05] LABS: INR 1.1 (0.9-1.1); Partial Thromboplastin Time 27.5 Seconds (21.0-31.0); Prothrombin Time 11.7 Seconds (9.0-12.0)
[2020-07-26 13:09] LABS: BUN Creatinine Ratio 27.5 (10-20); Calcium 8.8 mg/dl (8.5-10.1); Creatinine Clr Calc Pharmacy 46.5 ml/min; Est GFR (African American) 44.4; Est GFR (Non-African American) 38.3; Magnesium 2.2 mg/dl (1.8-2.4); Potassium 4.1 mmol/L (3.5-5.1)
[2020-07-26 13:14] LABS: Albumin Globulin Ratio 0.7 (0.9-2); Bilirubin,Total 0.7 mg/dl (0.2-1); Globulin 4.4 gm/dl (2.5-4.0); Total Protein 7.4 gm/dl (6.4-8.2); Troponin I 0.029 ng/ml (0-0.045)
--- NOTE | 2020-07-26 14:36 | Electrocardiogram Report ---
Test Reason : Blood Pressure : / mmHG Vent. Rate : 058 BPM Atrial Rate : 055 BPM P-R Int : 000 ms QRS Dur : 156 ms QT Int : 454 ms P-R-T Axes : 000 -84 101 degrees QTc Int : 445 ms Atrial fibrillation Left axis deviation Left bundle branch block Abnormal ECG When compared with ECG of 12-JAN-2016 23:29, Left bundle branch block is now Present Atrial fibrillation is now Present Reconfirmed by Wu Sims ([id number]) on 07/28/2020 3:39:31 PM Referred By: Neeta Dang Confirmed By:Wu Sims
[2020-07-26 14:59] LABS: Appearance Urine Clear (Clear); Bacteria Urine Automated Negative (Negative); Bilirubin Urine Negative (Negative); Blood Urine Trace (Negative); Color Urine Yellow; Glucose Urine UA Negative (Negative); Ketones Urine Negative (Negative); Leukocyte Esterase Urine Negative (Negative); Nitrite Urine Negative (Negative); Protein Urine 2+ (Negative); RBC Urine Automated 0-4 /hpf (0-4); Specific Gravity Urine 1.019 (1.000-1.030); Urobilinogen Urine Negative (Negative)
--- NOTE | 2020-07-26 15:59 | Ultrasound Report ---
ULTRASOUND BILATERAL LOWER EXTREMITY VENOUS CLINICAL HISTORY: Lower extremity edema. COMPARISON STUDY: Bilateral lower extremity venous ultrasound dated 01/13/2016. TECHNIQUE: Real-time, grayscale, and color Doppler sonography of the deep veins of the right and left lower extremity was performed from the inguinal crease to the calf. Compression and augmentation wer e utilized. FINDINGS: There is no sonographic evidence of deep venous thrombosis identified in the right or left lower extremity. The common femoral, superficial femoral, and popliteal veins are patent and normally compressible bilaterally. The greater saphenous vein and the profunda femoris vein at the junction w ith the common femoral vein are clear in both legs. The visualized calf veins are patent bilaterally. Right-sided calf vessels were partially obscured by overlying bandage material. IMPRESSION: There is no sonographic evidence of deep venous thrombosis identified in the right or lef t lower extremity. ACT 112: Negative or not required by law. Electronically signed by: Lyndon Bello M.D. 07/26/2020 3:57 PM
--- NOTE | 2020-07-26 17:04 | History & Physical Report ---
Date of Service July 26, 2020 Assessment & Plan (1) Hypervolemia: Suspect secondary to CKD and acute CHF. Possibly atrial fibrillation contributing. Will continue his usual Bumex but switch to IV dosing given significant response so far to 2mg IV given in ER. (2) Atrial fibrillation: New onset. Rate controlled without medication. TSH pending TTE deferred repeating to cardiology if felt to be necessary given recently had this in June. Anticoagulation with Eliquis 5mg PO BID (3) CKD (chronic kidney disease) stage 3, GFR 30-59 ml/min: Appears to be at baseline but significantly hypervolemic on exam. Consult nephrology to assist with fluid management. (4) Acute diastolic (congestive) heart failure: Suspect combination of CKD and acute CHF leading to hypervolemic state. Low Na, heart healthy diet, fluid restrict 1200ml I&Os Daily weights (5) Edema: Secondary to venous stasis, hypervolemic state from CKD and acute CHF. (6) Cellulitis: Very difficult to rule in/out given chronic venous changes in b/l LE however multiple open ulcers and uncontrolled T2DM with positive wound cultures for pseudomonas warrants antibiotics. WBC WNL. CRP and ESR added to prior labs Continue Zosyn pending wound care consult review. (7) Venous ulcers of both lower extremities: Wound care consult (8) Pseudomonas infection: From prior wound culture. Will treat with Zosyn as above. (9) BPH (benign prostatic hyperplasia): No LUTS symptoms. On herbal medicine only for this. (10) CAD (coronary artery disease): Prior CABG No ASA use due to prior ulcers (per patient recollection) Suspect no BB due to bradycardia Unclear reason for no statin but patient generally manages most of his healthcare needs with herbal supplements therefore suspect it was discontinued at some stage by the patient. (11) Hypothyroidism: TSH 4.43 in February. Will repeat given new onset atrial fibrillation as above. (12) Ischemic cardiomyopathy: LVEF 40-45%. On no BB due to bradycardia. Consider ACEI/ARB if renal function stable after diuresis. (13) Uncontrolled type 2 diabetes mellitus with insulin therapy: HbA1C 9.1 in February. Will repeat with AM labs. Patient declines management of insulin with SC injections as he has his own pump. May use own insulin pump. will change insulin daily in pump. BSG ACHS with usual hypoglycemia protocol (14) DVT prophylaxis: Eliquis as above Admission and Anticipated Discharge Date Admission Date: 07/26/2020 History of Present Illness Chief Complaint: Bilateral lower extremity ulcers Primary Care Provider: Roc Casanova MD Jeffery Hernandes is a 79 year old male who presents to the ER on the advice of wound care clinic today due to worsening bilateral lower extremity ulcers. Difficult to obtain history from patient but he reports his legs have never been so swollen. This is co-orborated with his . Associated shortness of breath although he finds it difficult to move anywhere with his leg swelling. Large blisters have formed over the last 2 days and subsequently popped. She reports a strong smell comes from the back of his legs. He reports not taking the diuretics as prescribed as he doesn't think it has been helping him and it doesn't make him urinate a lot. He has not taken any doses today. He has a lot of his own ideas about his healthcare and tries to use herbal supplements most of the time. Prior problems with medication non-compliance noted in the chart. When discussing atrial fibrillation and need for anticoagulation he asks me whether he could do the same thing to treat this with higher doses of garlic. He denies any history of atrial fibrillation but does have a history of coronary artery disease with prior bypass surgery. He reports problems with his prostate although denies any lower urinary tract symptoms such as nocturia, urinary frequency, terminal dribbling, difficulty starting or poor stream. He reports using herbal supplements to help with his prostate. He denies any fever or chills. His has noticed significant worsening of swelling with associated erythema although his legs are chronically erythematous. In the ER given prior wound cultures growing pseudomonas he was started on Zosyn for suspected cellulitis and IV Bumex 2mg or volume overload. Allergies Allergy/AdvReac Type Severity Reaction Status Date / Time cephalexin Allergy Intermediate pimple Verified 07/26/20 13:25 like rash cat dander Allergy Mild NO ALLERGY Verified 07/26/20 13:25 PATIENT PREFERENCE ragweed pollen Allergy Unknown SHORTNESS Verified 07/26/20 13:25 OF BREATH lisinopril AdvReac Mild Cough Verified 07/26/20 13:25 Zzqgotu-Fct-Kih Reductase AdvReac Mild SEE NOTE Verified 07/26/20 13:25 Inhibitor NO ALLERGY Home Medications Home Medications Medication Instructions Recorded Confirmed Type bilberry 100 mg PO DAILY 09/20/19 07/26/20 History Urinozinc Prostate Formula 100 mg PO DAILY 10/23/19 07/26/20 History levothyroxine 75 mcg tablet 75 mcg PO DAILY #90 tab 12/12/19 07/26/20 Rx insulin aspart U-100 100 unit/mL 50 unit SUBCUT DAILY 02/13/20 07/26/20 History subcutaneous solution mupirocin 2 % topical ointment 1 appln TOP BID #22 gm 03/19/20 07/26/20 Rx Lactobac #2-Bifido #1-S. therm 0 mg PO DAILY 06/16/20 07/26/20 History Marshmallow Root See Rx Instructions PO BID 06/16/20 07/26/20 History milk thistle 500 mg capsule 1,000 mg PO DAILY cap 06/16/20 07/26/20 History olive leaf extract 0 mg PO DAILY 06/16/20 07/26/20 History simethicone 125 mg capsule 125 mg PO DAILY PRN 06/16/20 07/26/20 History vitamins A,C,O-yawq-ytesqm 1 tab PO BID 06/16/20 07/26/20 History Super K Complex 0 mg PO DAILY 06/30/20 07/26/20 History bumetanide 1 mg tablet 2 mg PO BID #120 tab 06/30/20 07/26/20 Rx calcitriol 0.5 mcg capsule 0.5 mcg PO UD #45 cap 06/30/20 07/26/20 Rx gentamicin 0.1 % topical ointment 1 applic TOPICAL DAILY 14 Days #30 07/08/20 07/26/20 Rx g acetylcarnitine 1 g PO DAILY 07/26/20 07/26/20 History garlic 5,000 mg PO DAILY 07/26/20 07/26/20 History Past Med/Surg History Medical History Acute kidney injury BPH (benign prostatic hyperplasia) CAD (coronary artery disease) Cardiac murmur Cataract Chronic diastolic (congestive) heart failure Chronic venous insufficiency Chronic venous stasis CKD (chronic kidney disease) Diabetes mellitus, type 2 IDDM Diabetic foot ulcer associated with type 2 diabetes mellitus Diabetic nephropathy Diabetic retinopathy Dysphagia Esophageal dysmotility History of epistaxis History of gastric ulcer History of GI bleed History of sleep apnea Hypercholesterolemia Hypertension Hypothyroidism Insulin pump in place Ischemic cardiomyopathy LVH (left ventricular hypertrophy) Lymphedema Microalbuminuria Myocardial infarction 2011 Neuropathy Protein in urine Secondary hyperparathyroidism of renal origin Swallowing dysfunction Trigeminal neuralgia of right side of face Uncontrolled type 2 diabetes mellitus with insulin therapy Vitamin D deficiency Surgical History History of appendectomy History of cardiac catheterization 2011 - [place] --> CABG History of colonoscopy (01/23/07) Dr. Gore, sigmoid diverticulosis, otherwise normal, recheck recommended 10 years History of coronary artery bypass graft 3 VESSELS - 2011 - follows w/ Dr. Calderon (reports last visit 6-7 years ago) History of esophagogastroduodenoscopy (EGD) History of left cataract surgery History of nasal cauterization History of tonsillectomy Family History Mother Family history of diabetes mellitus Ulcerative colitis Uncle Family history of diabetes mellitus Aunt Family history of diabetes mellitus Unknown Hypertension Other Heart disease History of tooth extraction No family history of adverse response to anesthesia No family history of bleeding disorder Stroke Denies family history of Ovarian cancer Prostate cancer Coronary heart disease Breast cancer Scrotal edema Colorectal cancer Social History Smoking Status: Never smoker Second Hand Exposure: Yes; Hx Alcohol Use: Yes Alcohol type: wine Hx Substance Use: No Preferred Language: Bulgarian Communication Ability: Effective Visual Impairment: No Limitations Hearing Ability: Normal Electric[employer] Substation Required: No Beliefs That Will Affect Care: None marital status: Current Living Situation: Spouse current occupational status: retired Other Information That Helps Us Care for You: No Feels Safe at Home: Yes Safety Concerns: Feels Safe At This Time Childhood Exposure to Second-Hand Smoke: No caffeine: Yes during the past year weight has: remained stable Dental Care, Regularly: Yes Seatbelt Use: never Sunscreen Use: No Assistive Devices: Walker Review of Systems Review of Systems: All systems reviewed & are unremarkable except as noted in HPI & below Constitutional: + fatigue; no fever and no chills Cardiovascular: no chest pain Physical Exam Constitutional: well developed and + obese; + not well nourished and no acute distress Eyes: + anicteric sclerae; normal pupil size Respiratory: normal respiratory effort Auscultation: + diminished lung sounds (bibasal); no crackles, no rales, no rhonchi and no wheezes Cardiovascular: Rate/Rhythm: + bradycardic and + irregularly irregular Heart Sounds: no murmur Vessels: no JVD (difficult to assess with neck size) Extremities: normal capillary refill, + calf tenderness (b/l) and + edema (3+ up to mid abdomen, scrotal swelling and leg edema, arms spared) Gastrointestinal (Abdomen): Inspection/Auscultation: + abdomen distended Percussion/Palpation: abdomen soft; abdomen nontender, no guarding and abdomen not rigid Skin: Multiple bilateral LE ulcer well described on wound care note earlier today. Erythema from knee to toes b/l, mildly increased brightness around dorsal aspect or left foot and right posterior leg. Chronic venous stasis changes b/l Neurologic: moves all extremities and awake; not confused Psychiatric: A+Ox3, euthymic affect Results & Data Results & Data ([facility] [place]) Vital Signs (Past 12 Hours) Vital Signs Temp Pulse Pulse Resp BP BP Pulse Ox 07/26/20 16:31 56 L 23 158/74 H 94 07/26/20 16:30 52 L 20 94 07/26/20 16:14 56 L 24 162/61 H 93 07/26/20 15:00 55 L 18 156/81 H 94 07/26/20 14:30 52 L 19 157/78 H 95 07/26/20 14:00 54 L 24 142/76 H 94 07/26/20 13:30 43 L 20 150/72 H 93 07/26/20 13:00 54 L 18 158/78 H 93 07/26/20 12:22 56 L 22 160/74 H 95 07/26/20 12:21 62 22 95 07/26/20 12:09 36.5 C 62 22 178/72 H 95 Diagnostic Findings XR chest 1V portable IMPRESSION: 1. Cardiomegaly with mild pulmonary edema. 2. New right hemidiaphragmatic elevation with bibasilar opacities suggestive of atelectasis versus pneumonitis. ULTRASOUND BILATERAL LOWER EXTREMITY VENOUS IMPRESSION: There is no sonographic evidence of deep venous thrombosis identified in the right or left lower extremity. Medications Administered ER medications given: Zosyn 4.5g IV Bumex 2mg IV ECG Indication: SOB/dyspnea Rate (beats per minute): 58 Rhythm: atrial fibrillation Findings: + LBBB Comparison ECG Date: from (January 12, 2016) Change: the following changes noted (Atrial fibrillation LBBB are new) Code Status & VTE Plan Code Status DNR/DNI as discussed with the patient VTE Prophylaxis Plan VTE Prophylaxis will be ordered: Yes PG Care Time/CCT Total # of Minutes Spent Total Time Spent with Patient: Total time spent is greater than 50% in coordination of care (as documented) at patient's floor/unit and/or counseling patient: Coding Level of Care Code 79184 Initial Inpt Care Lvl 3 Diagnoses Hypervolemia E87.70 Atrial fibrillation I48.91 CKD (chronic kidney disease) stage 3, GFR 30-59 ml/min N18.3 Acute diastolic (congestive) heart failure I50.31 Edema R60.9 Cellulitis L03.119 Laterality: unspecified laterality Site of cellulitis: extremity Site of cellulitis of extremity: lower extremity Venous ulcers of both lower extremities I83.019; I83.029; L97.919; L97.929 Pseudomonas infection A49.8 BPH (benign prostatic hyperplasia) N40.1; R39.14 Lower urinary tract symptom detail: incomplete bladder emptying Lower urinary tract symptom presence: symptoms present CAD (coronary artery disease) I25.10 Hypothyroidism E03.9 Ischemic cardiomyopathy I25.5 Uncontrolled type 2 diabetes mellitus with insulin therapy E11.65; Z79.4 DVT prophylaxis Z29.9 (1) BPH (benign prostatic hyperplasia) Lower urinary tract symptom detail: incomplete bladder emptying Lower urinary tract symptom presence: symptoms present Qualified Code(s): N40.1 - Benign prostatic hyperplasia with lower urinary tract symptoms; R39.14 - Feeling of incomplete bladder emptying (2) Cellulitis Laterality: unspecified laterality Site of cellulitis: extremity Site of cellulitis of extremity: lower extremity Qualified Code(s): L03.119 - Cellulitis of unspecified part of limb
[2020-07-26 18:44] LABS: C Reactive Protein 0.89 mg/dl (0-0.29); Thyroid Stimulating Hormone 9.04 uIu/ml (0.300-4.500)
[2020-07-26 18:57] LABS: T4 Free Thyroxine 1.22 ng/dl (0.8-1.6)
[2020-07-26] MEDS ORDERED: GLUCOSE 10 TABS/TUBE PO PRN (19:27)
[2020-07-26] MEDS ORDERED: CARBOHYDRATES FOR HYPOGLYCEMIA PO PRN (19:27)
[2020-07-26] MEDS ORDERED: ONDANSETRON INJ 2 MG/ML 2 ML VIAL IV PRN (19:27)
[2020-07-26] MEDS ORDERED: ALUMINUM/MAGNESIUM SUSP 30 ML UDC PO PRN (19:27)
[2020-07-26] MEDS ORDERED: GLUCOSE 40% GEL 15 GM TUBE PO PRN (19:27)
[2020-07-26] MEDS ORDERED: ACETAMINOPHEN 325 MG TAB PO PRN (19:27)
[2020-07-26] MEDS ORDERED: DEXTROSE 50% 50 ML SYRINGE IV PRN (19:27)
[2020-07-26] MEDS ORDERED: GLUCAGON FOR INJ 1 MG VIAL SQ PRN (19:27)
[2020-07-26] MEDS: BUMETANIDE 2 MG in SYRINGE 0 ML IV SCH (20:31)
[2020-07-26] MEDS: PIPERACILLIN/TAZOBACTAM 4.5 GM in DEXTROSE 5% 100 ML IV SCH (20:32)
[2020-07-26] MEDS: APIXABAN 5 MG TABLET PO SCH (21:20)
[2020-07-26] MEDS: INSULIN ASPART 100 UNITS/ML 3 ML PEN SC SCH (21:20)
[2020-07-26] MEDS: INSULIN GLARGINE SOLOSTAR 100 UNITS/ML 3 ML PEN SC SCH (21:20)
[2020-07-27] MEDS: MELATONIN 3 MG TAB PO PRN (02:12)
[2020-07-27] MEDS: PIPERACILLIN/TAZOBACTAM 4.5 GM in DEXTROSE 5% 100 ML IV SCH ×3 (05:03→21:07)
[2020-07-27] MEDS ORDERED: DICLOFENAC SOD 1% GEL 100 GM TUBE EXT ONE (05:20)
[2020-07-27] MEDS: LEVOTHYROXINE SODIUM 75 MCG TABLET PO SCH (05:48)
--- NOTE | 2020-07-27 08:18 | Hospitalist Progress Note ---
Date of Service July 27, 2020 Assessment & Plan Admission and Anticipated Discharge Date Admission Date: July 26, 2020 Results & Data Results & Data ([facility]) Vital Signs (Past 12 Hours) Vital Signs Temp Pulse Pulse Resp BP Pulse Ox 07/27/20 07:38 56 L 07/27/20 04:42 37.1 C 66 18 135/56 L 92 07/26/20 23:51 36.5 C 62 18 178/73 H 98
[2020-07-27] MEDS ORDERED: LIDOCAINE 5% 1 PATCH TD SCH (09:00)
[2020-07-27] MEDS: INSULIN ASPART 100 UNITS/ML 3 ML PEN SC SCH ×4 (09:02→21:09)
[2020-07-27] MEDS: BUMETANIDE 2 MG in SYRINGE 0 ML IV SCH ×2 (09:02→18:12)
[2020-07-27] MEDS: APIXABAN 5 MG TABLET PO SCH ×2 (09:02→21:08)
[2020-07-27] MEDS: INSULIN GLARGINE SOLOSTAR 100 UNITS/ML 3 ML PEN SC SCH ×2 (09:03→21:08)
[2020-07-27] MEDS: DICLOFENAC SOD 1% GEL 100 GM TUBE EXT SCH ×4 (09:12→21:10)
[2020-07-27 10:04] LABS: Basophils # (auto) 0.02 K/uL (0-0.2); Basophils % (auto) 0.3 %; Eosinophils # (auto) 0.06 K/uL (0-0.5); Eosinophils % (auto) 0.9 %; Hematocrit (blood only) 38.3 % (42-52); Hemoglobin 12.6 g/dL (14.0-18.0); Immature Granulocytes # (auto) 0.01 K/uL (0.00-0.02); Immature Granulocytes % (auto) 0.2 %; Lymphocytes % (auto) 13.9 %; Mean Corpuscular Hemoglobin 31.9 pg (25-34); Mean Corpuscular Hgb Conc 32.9 g/dL (32-36); Monocytes # (auto) 0.75 K/uL (0.11-0.59); Monocytes % (auto) 11.6 %; Neutrophils # (auto) 4.74 K/uL (1.4-6.5); Neutrophils % (auto) 73.1 %; Platelet Count 138 K/uL (130-400); RDW Coefficient of Variation 15.1 % (11.5-14.5); RDW Standard Deviation 53.4 fL (36.4-46.3); Red Blood Count 3.95 M/uL (4.7-6.1); White Blood Count 6.48 K/uL (4.8-10.8)
[2020-07-27 10:33] LABS: BUN Creatinine Ratio 25.9 (10-20); Calcium 8.7 mg/dl (8.5-10.1); Creatinine Clr Calc Pharmacy 40.3 ml/min; Est GFR (African American) 40.6; Potassium 3.9 mmol/L (3.5-5.1)
--- NOTE | 2020-07-27 10:46 | Nephrology Consultation ---
Date of Consultation July 27, 2020 Assessment & Plan (1) Lower extremity edema: * LE and genital edema likely reflective of LVH, elevated R heart pressure and questionable adherence to prescribed diuretic regimen * Recommend 1500 mg/day NaCl restricted diet * Agree w/ IV Bumex 2 mg BID * Will likely need to accept worsening kidney function in order to alleviate LE/genital edema * Recommend scrotal elevation (2) CKD (chronic kidney disease) stage 3, GFR 30-59 ml/min: * Baseline Cr 1.8. Kidney function and electrolyte balance remain acceptable at this time * 07/06 renal US: R 12.3cm, L 12.5cm. No hydronephrosis * Urine sediment this admission is acellular. 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 Once rendered euvolemic, may consider low dose TIMO/ARB (4) Ischemic cardiomyopathy: * Recent echocardiogram w/ hypokinesis of LV. Await Cardiology input History of Present Illness Reason for Consultation: Peripheral edema/CKD Attending Physician: Kalen Luevano DO History of Present Illness Dr. 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 Baker for evaluation of peripheral edema/CKD. 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 His primary General Office Associate is Dr. Kamara. He has not maintained regular medical follow up. He self medicates with herbal supplements. Dr. Hernandes's medical history is significant for stage IIIb CKD (moderate impairment) w/ baseline Cr ~1.8, AODM, obesity, DESMOND, BPH, hypercholesterolemia, ASCVD s/p CABG. Echocardiogram 07/06 revealed severe LVH w/LVEF 40-45% Hypokinesis of the apex, septum, inferior and lateral mcneal was reported. RVSP could not be calculated. IVC was mildly dilated w/ decrease in respiratory collapse. Dr. Hernandes reports that he follows a low sodium diet. Over the last several weeks he reports decreasing UO despite having changed from oral Furosemide to Bumetanide. Dr. Hernandes was seen in the wound clinic yesterday due to progressive LE and genital swelling. Admission was advised for IV diuretic therapy and to reestablish care w/ Nephrology and Cardiology. Allergies Allergy/AdvReac Type Severity Reaction Status Date / Time cephalexin Allergy Intermediate pimple Verified 07/26/20 13:25 like rash cat dander Allergy Mild NO ALLERGY Verified 07/26/20 13:25 PATIENT PREFERENCE ragweed pollen Allergy Unknown SHORTNESS Verified 07/26/20 13:25 OF BREATH lisinopril AdvReac Mild Cough Verified 07/26/20 13:25 Hzzbqnl-Psw-Qqu Reductase AdvReac Mild SEE NOTE Verified 07/26/20 13:25 Inhibitor NO ALLERGY Home Medications Home Medications Medication Instructions Recorded Confirmed Type bilberry 100 mg PO DAILY 09/20/19 07/26/20 History Urinozinc Prostate Formula 100 mg PO DAILY 10/23/19 07/26/20 History levothyroxine 75 mcg tablet 75 mcg PO DAILY #90 tab 12/12/19 07/26/20 Rx insulin aspart U-100 100 unit/mL 50 unit SUBCUT DAILY 02/13/20 07/26/20 History subcutaneous solution mupirocin 2 % topical ointment 1 appln TOP BID #22 gm 03/19/20 07/26/20 Rx Lactobac #2-Bifido #1-S. therm 0 mg PO DAILY 06/16/20 07/26/20 History Marshmallow Root See Rx Instructions PO BID 06/16/20 07/26/20 History milk thistle 500 mg capsule 1,000 mg PO DAILY cap 06/16/20 07/26/20 History olive leaf extract 0 mg PO DAILY 06/16/20 07/26/20 History simethicone 125 mg capsule 125 mg PO DAILY PRN 06/16/20 07/26/20 History vitamins A,C,X-wzrx-vcnavf 1 tab PO BID 06/16/20 07/26/20 History Super K Complex 0 mg PO DAILY 06/30/20 07/26/20 History bumetanide 1 mg tablet 2 mg PO BID #120 tab 06/30/20 07/26/20 Rx calcitriol 0.5 mcg capsule 0.5 mcg PO UD #45 cap 06/30/20 07/26/20 Rx gentamicin 0.1 % topical ointment 1 applic TOPICAL DAILY 14 Days #30 07/08/20 07/26/20 Rx g acetylcarnitine 1 g PO DAILY 07/26/20 07/26/20 History garlic 5,000 mg PO DAILY 07/26/20 07/26/20 History Patient History Medical History Acute kidney injury BPH (benign prostatic hyperplasia) CAD (coronary artery disease) Cardiac murmur Cataract Chronic diastolic (congestive) heart failure Chronic venous insufficiency Chronic venous stasis CKD (chronic kidney disease) Diabetes mellitus, type 2 IDDM Diabetic foot ulcer associated with type 2 diabetes mellitus Diabetic nephropathy Diabetic retinopathy Dysphagia Esophageal dysmotility History of epistaxis History of gastric ulcer History of GI bleed History of sleep apnea Hypercholesterolemia Hypertension Hypothyroidism Insulin pump in place Ischemic cardiomyopathy LVH (left ventricular hypertrophy) Lymphedema Microalbuminuria Myocardial infarction 2012 Neuropathy Protein in urine Secondary hyperparathyroidism of renal origin Swallowing dysfunction Trigeminal neuralgia of right side of face Uncontrolled type 2 diabetes mellitus with insulin therapy Vitamin D deficiency Surgical History History of appendectomy History of cardiac catheterization 2011 - [place] --> CABG History of colonoscopy (01/23/07) Dr. Gore, sigmoid diverticulosis, otherwise normal, recheck recommended 10 years History of coronary artery bypass graft 3 VESSELS - 2011 - follows w/ Dr. Calderon (reports last visit 6-7 years ago) History of esophagogastroduodenoscopy (EGD) History of left cataract surgery History of nasal cauterization History of tonsillectomy Family History Mother Family history of diabetes mellitus Ulcerative colitis Uncle Family history of diabetes mellitus Aunt Family history of diabetes mellitus Unknown Hypertension Other Heart disease History of tooth extraction No family history of adverse response to anesthesia No family history of bleeding disorder Stroke Denies family history of Ovarian cancer Prostate cancer Coronary heart disease Breast cancer Scrotal edema Colorectal cancer Social History Smoking Status: Never smoker Second Hand Exposure: Yes; Hx Alcohol Use: Yes Alcohol type: wine Hx Substance Use: No Preferred Language: Guyanese Communication Ability: Effective Visual Impairment: No Limitations Hearing Ability: Normal [employer] Required: No Beliefs That Will Affect Care: None marital status: Current Living Situation: Spouse current occupational status: retired Other Information That Helps Us Care for You: No Feels Safe at Home: Yes Safety Concerns: Feels Safe At This Time Childhood Exposure to Second-Hand Smoke: No caffeine: Yes during the past year weight has: remained stable Dental Care, Regularly: Yes Seatbelt Use: never Sunscreen Use: No Assistive Devices: Walker Review of Systems Constitutional: no fever Eyes: no problem reported Ear, Nose, Mouth, Throat: no problem reported Respiratory: no dyspnea Cardiovascular: + edema; no chest pain Gastrointestinal: no abdominal pain, no nausea and no diarrhea/loose stools Genitourinary: + urinary hesitancy; no dysuria and no hematuria Musculoskeletal: no back pain Integumentary: no rash Neurologic: no falls and no confusion Physical Exam Constitutional: + ill appearing; not in distress Eyes: PERRL, conjunctivae normal, anicteric sclerae ENMT: external ear and nose normal, oropharynx normal Neck: trachea midline, no thyromegaly Respiratory: normal respiratory effort, lungs clear to auscultation Cardiovascular: Rate/Rhythm: + irregularly irregular Extremities: + edema tense LE swelling w/ weeping bullae on the dorsum of L foot Gastrointestinal (Abdomen): normal bowel sounds, soft, nontender, no hepatosplenomegaly Musculoskeletal: Extremities: no cyanosis Neurologic: awake Genitourinary: severe genital edema Results & Data ([facility]) Vital Signs (Past 12 Hours) Vital Signs Temp Pulse Pulse Resp BP Pulse Ox 07/27/20 07:38 56 L 07/27/20 04:42 37.1 C 66 18 135/56 L 92 07/26/20 23:51 36.5 C 62 18 178/73 H 98 Laboratory Results Laboratory Tests 07/26/20 07/27/20 07/27/20 14:44 09:40 09:40 WBC 6.48 Hgb 12.6 L Hct 38.3 L Plt Count 138 Sodium 141 Potassium 3.9 Chloride 108 H Carbon Dioxide 24 BUN 47 H Creatinine 1.81 H Est GFR (Non-Af Amer) 35.0 Glucose 166 H Calcium 8.7 Urine Color Yellow Urine Appearance Clear Urine pH 5.0 Ur Specific [place] 1.019 Urine Protein 2+ H Urine Glucose (UA) Negative Urine Ketones Negative Urine Blood Trace H Urine Nitrite Negative Urine RBC (Auto) 0-4 PG Care Time/CCT Total # of Minutes Spent Total Time Spent with Patient: Total time spent is greater than 50% in coordination of care (as documented) at patient's floor/unit and/or counseling patient: Coding Level of Care Code 08153 Inpt Consult Level 5 Diagnoses Lower extremity edema R60.0 CKD (chronic kidney disease) stage 3, GFR 30-59 ml/min N18.3 LVH (left ventricular hypertrophy) I51.7 Ischemic cardiomyopathy I25.5
[2020-07-27 11:10] LABS: Estimated Average Glucose 194 mg/dl; Hemoglobin A1C 8.4 % (4.5-5.6)
--- NOTE | 2020-07-27 11:42 | Medical Student Progress Note ---
Date of Service July 27, 2020 Assessment & Plan Admission and Anticipated Discharge Date Admission Date: July 26, 2020 Pt is a 79 male with a pmh of CHF, CKD, BPH, CAD, and uncontrolled DM II, presents with bilateral erythematous, edema with multiple blistering wounds. Edema secondary to CHF and venous stasis, but without the accumulation of fluid in the lungs as seen on physical exam and chest film and the combination of chronic venous stasis discoloration and patient's description of a sedentary lifestyle, the primary source of increase in edema is venostatic. Previous Echo revealed LVH w / LVEF 40-45% with hypokinesis of the apex, septum, inferior and lateral mcneal. I feel that the edema has been further exacerbated by acute on chronic kidney injury with evidence in urine report of 2 + protein and trace blood. 1) Hypervolemia Suspected to be secondary to acute on CKD and acute CHF. Possible A. fib contribution. Encouraging mobility and in decreased sodium intake at home. I/O: 850 mL Continuing on Bumetanide 2 Mg in syringe 8mls @ 4 ml/min IV BID 2) Acute diastolic Heart Failure Heart healthy diet Recent echocardiogram w/ hypokinesis of LV. Await cardiology input For treatment reference Hypervolemia 3) Atrial Fibrillation Apixaban 5 mg PO BID 4) Acute on Chronic Kidney Disease Nephrology was consulted. Continue to diuresis with the acknowledgement that it will increase Cre levels. 5) Cellulitis Started on Piperacillin/Tazobactam 4.5 gm in dextrose 120 mls @ 30mls/ IV Q8H Wound care was consulted. 6) Pseudomonas infection Coverage from antibiotics. 7) Lower Extremity ulcers Wound Care consult. 8) Hypothyroidism Continued on Levothyroxine 75 mcg PO daily 9) DM II Received Insulin Glargine 9 units SC BID Insulin Aspart on sliding scale 10) BPH On herbal medicine only for this 11) Heel spurs Treated with Lidocaine patch Scheduled for Diclofenac DVT Prophalax: Eliquis F/E/N: Heart Healthy Diet Dispos: Medicine Code Status: DNR/DNI, No resuscitation Supervising Attestation I personally examined the patient and verified all elizabeth points of history and exam, discussed case, and agree with decision making with Sneha Brian MS2. leg swelling and oozing. not a lot of sob. diet reviewed - does have rivas and ham with some degree of regularity, broths but he notes he makes them himself (does not admit to adding Na) and mostly meats and vegetables. vitals ntoed nad heent nc at mmm breathing unlabored no accessory muscles good effort. b/l LE diffuse venous stasis changes although not much tenderness, scattered bullae sl discolored exudate. not very tender. volume overload - appearing to be mostly R sided/venous stasis, probably w a degree of chronic combined systolic and diastolic CHF - but with not a lot of pulm edema or dyspnea compared to his peripheral edema, i suspect the situation is venous stasis related far greater than failure. diurese but follow closely - d/w pt that i suspect we'll see a significant rise in creatinine or hit a barrier w BP before we see dramatic iprovement in swelling. educated on na - suspect he's not very forthcoming in Na intake although was very receptive to the teaching on how Na causes fluid retention. follow closely. venous stasis ulcers w pseudomonal overgrowth - wound care, zosyn otherwise as above Subjective Pt is a 79 male with a pmh of CHF, CKD, BPH, CAD, and uncontrolled DM II, presented in the ER for severe bilateral edema with multiple wounds and is being seen in medicine. 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 Pt reports the edema and erythematous has been present for years with increased swelling over the last several months. Pt reports not taking his diuretic two days previous because he felt that it doesnt work and prefers to self medicate with herbal supplements. He described urinary hesitancy in the weeks before admission with low urinary output despite having changed from oral furosemide to bumetanide. Pt considers fluid retention to be a result of penis and scrotum infection which occurred earlier in the year. The pt received IV bumetanide on admission and did diurese with his medication. Patient does report urinating substantially throughout the night. Wound Care has been consulted for treatment of multiple blisters and ulcers including wound with previous pseudomonas culture on the right leg. The chest film showed an elevated right hemidiaphragm, and there was no concerning CHF. Patient denies shortness of breath or difficulty breathing. EKG shows was appearing to be A. fib although there was a poor baseline. This was novel to the patient. Pt described heel spurs that were causing significant discomfort over the night. A Lidoderm patch and asper cream was applied and voltonin scheduled. Patient refuses to be on warfarin. Would prefer to bring in bilberry supplement as blood thinner. Review of Systems Review of Systems: Const: Denies fever. Eyes: Describes vision distortion of the left eye following eye injection. Resp: See HPI Cardi: Denies Chest pain, Denies Heart palpitations GI: Denies abdominal pain, n/v, constipation, reports stool mixed with clear fluid at times. : See HPI Physical Exam Physical Exam: General appearance: Pt was obese and in no acute distress. Vitals: Temp 37.1 , HR 66, RR 18, BP 135/56, 92% O2 on room air Cardio/Vasc: Irregularly irregular, no murmurs appreciated on exam. Extremeties: Tense LE swelling. Resp: Lungs were clear to auscultation bilaterally. Patient appear to have increased labor on expiration. Skin: Skin on lower extremities was erythematous, dry, and cracked. Edvidence of years of venous stasis. Multiple ulcers greater than 3 cm, were seen on exam. Neuro: Awake, grossly intact EOM Psych: Pt would frequently jump to unrelated topics and would need redirected to the topic at hand with mild fixation on alternative subjects. Constitutional: + overweight; no acute distress Respiratory: no cough and not tachypneic Auscultation: lungs clear to auscultation bilaterally Cardiovascular: Rate/Rhythm: + irregularly irregular Extremities: + pedal edema and + edema Skin: + skin tightening, + wound, + dry skin, + erythema and + nail abnormality Results & Data ([facility]) Vital Signs (Past 12 Hours) Vital Signs Temp Pulse Pulse Resp BP BP Pulse Ox 07/27/20 11:31 36.8 C 67 18 146/70 H 90 07/27/20 07:38 56 L 07/27/20 04:42 37.1 C 66 18 135/56 L 92 07/26/20 23:51 36.5 C 62 18 178/73 H 98
[2020-07-27] MEDS: TROLAMINE SALICYLATE 10% CRM 255 APPLN/85 GM TUBE EXT PRN (12:12)
--- NOTE | 2020-07-27 12:58 | Cardiology Consultation ---
Date of Consultation July 27, 2020 Assessment & Plan (1) Atrial fibrillation: He is in atrial fibrillation with a controlled heart rate. He should be anticoagulated, I discussed this with him and he feels that bilberry is a safer and more effective anticoagulant than the ones that we recommend. I told him that I cannot do anything but recommend either warfarin or the newer agents which I prefer) but he is planning to use bilberry. His atrial fibrillation is well controlled without medications so I would avoid medications which affect the AV node since his heart rate is slow even without them. We could consider conversion to sinus rhythm, there may be some advantage in doing that with his edema, but I do not know the duration of the atrial fibrillation and I cannot do that unless he takes an anticoagulant. If he is willing to take an anticoagulant I would recommend doing that for a month and then converting the rhythm. In the past he had sinus rhythm with marked first-degree AV block (that was last seen in 2017) so conversion may result in second-degree or higher AV block which would potentially be an issue. This will need further discussion but since he is not anticoagulated we cannot do that now in any case. (2) CAD (coronary artery disease): He has coronary disease and has had bypass surgery in the past, he does not have symptoms to suggest progression of disease. His left ventricular function has not changed and therefore I do not believe we should evaluate him for disease progression. (3) Ischemic cardiomyopathy: He does have an ischemic cardiomyopathy although it has been quite stable and it is not severe. This could lead to systolic heart failure although with an ejection fraction in the 40s that normally is not a big factor but he does have severe LVH on top of it. Ideally we would have him on beta-blockade as well as TIMO inhibitors, with his heart rate I do not think we can use beta- blockers, with his kidney function I do not think we can use TIMO inhibitors, therefore there is not a lot we can do with his left ventricular function with medical therapy. We could try some of the second line drugs but he is disinclined to use conventional medications in any case and I think especially if they are not very effective he would be resistant. Since his ejection fraction has not changed in quite a few years I do not think it is urgent that we get him on anything soon. (4) Edema: From his description (I do not have office records to corroborate his description but his agrees) his edema has been getting worse over the last several months and especially over the last several weeks and has not been this severe for the last several years. That raises the possibility that something changed in the last month or 2, perhaps development of atrial fibrillation was what triggered the current worsening of his fluid retention and edema. We do not have records to determine that specifically although I am going to try to check his echocardiogram from June to see if I can tell if he is in atrial fibrillation then. If this is true then conversion to sinus rhythm may help him mobilize fluid and make dealing with the edema easier. We may be limited our ability to eliminate his edema because of his kidney disease. (5) Congestive heart failure: He does not seem to have a lot of left-sided congestive heart failure, he does have some degree of left ventricular dysfunction and probably has some element of systolic heart failure, he also has the likelihood of diastolic dysfunction due to his severe LVH. Either way removing fluid is the ideal approach however we may run into difficulties with kidney function. (6) Acute kidney injury superimposed on chronic kidney disease: He has longstanding kidney disease which I suppose is a combination of hypertension diabetes with a component of cardiorenal syndrome. That may interfere with her ability to mobilize fluid but I would continue with diuresis. History of Present Illness Reason for Consultation: Newly diagnosed atrial fibrillation, coronary artery disease Attending Physician: Kalen Luevano DO History of Present Illness This is a 79-year-old male who has a history of diabetes mellitus with poor control, he has diabetic leg ulcers and diabetic neuropathy, he is followed in the wound clinic, he also has chronic kidney disease and hypothyroidism. He also has a long history of coronary artery disease for which he has had catheterization March 24, 2013 followed by bypass surgery x3 March 28, 2013, and ischemic cardiomyopathy, chronic congestive heart failure with chronic lower extremity edema. His left ventricular ejection fraction on September 01, 2016 was 45%. He is quite noncompliant with medical therapy and has declined antiplatelet therapy as well as statin therapy in the past. We did see him for congestive heart failure in October 2016 and suggested follow-up in the heart failure area however that was not done. That was the last time we saw him. He was admitted with fluid retention and was observed to be in atrial fibrillation. He does not seem to have a history of that, when I discussed it with him he does not recall hearing about it although he seemed to know about anticoagulants to some extent (at least to the point where he did not want to take them). The last electrocardiogram from our office was October 20, 2016 and this showed sinus rhythm with marked first-degree AV block. I do not know if he had an interim electrocardiogram. An echocardiogram had been done June 30, 2020 and this showed moderate left ventricular dysfunction with an ejection fraction of 40 to 45% with wall motion abnormalities. He had severe left ventricular hypertrophy, no mention was made of an arrhythmia at the time although sometimes on careful review we can tell if atrial fibrillation is present and I will try to do that. He has evidently not been feeling very well although he denies symptoms such as chest discomfort, dyspnea on exertion (although he is not very active), palpitations, lightheadedness or dizziness. He is most bothered by his edema which has been especially bad over the last 2 weeks and worse over the last several months, although it is a chronic problem. He denies having presyncope or syncope or being aware of an irregular heart rate. His heart rate is well controlled without AV huyen blocking medications which may contribute to his lack of symptoms and possibly to a lack of diagnosis if he was in atrial fibrillation for some time. Allergies Allergy/AdvReac Type Severity Reaction Status Date / Time cephalexin Allergy Intermediate pimple Verified 07/26/20 13:25 like rash cat dander Allergy Mild NO ALLERGY Verified 07/26/20 13:25 PATIENT PREFERENCE ragweed pollen Allergy Unknown SHORTNESS Verified 07/26/20 13:25 OF BREATH lisinopril AdvReac Mild Cough Verified 07/26/20 13:25 [id number] Reductase AdvReac Mild SEE NOTE Verified 07/26/20 13:25 Inhibitor NO ALLERGY Home Medications Home Medications Medication Instructions Recorded Confirmed Type bilberry 100 mg PO DAILY 09/20/19 07/26/20 History Urinozinc Prostate Formula 100 mg PO DAILY 10/23/19 07/26/20 History levothyroxine 75 mcg tablet 75 mcg PO DAILY #90 tab 12/12/19 07/26/20 Rx insulin aspart U-100 100 unit/mL 50 unit SUBCUT DAILY 02/13/20 07/26/20 History subcutaneous solution mupirocin 2 % topical ointment 1 appln TOP BID #22 gm 03/19/20 07/26/20 Rx Lactobac #2-Bifido #1-S. therm 0 mg PO DAILY 06/16/20 07/26/20 History Marshmallow Root See Rx Instructions PO BID 06/16/20 07/26/20 History milk thistle 500 mg capsule 1,000 mg PO DAILY cap 06/16/20 07/26/20 History olive leaf extract 0 mg PO DAILY 06/16/20 07/26/20 History simethicone 125 mg capsule 125 mg PO DAILY PRN 06/16/20 07/26/20 History vitamins A,C,O-xnlt-lexrrf 1 tab PO BID 06/16/20 07/26/20 History Super K Complex 0 mg PO DAILY 06/30/20 07/26/20 History bumetanide 1 mg tablet 2 mg PO BID #120 tab 06/30/20 07/26/20 Rx calcitriol 0.5 mcg capsule 0.5 mcg PO UD #45 cap 06/30/20 07/26/20 Rx gentamicin 0.1 % topical ointment 1 applic TOPICAL DAILY 14 Days #30 07/08/20 07/26/20 Rx g acetylcarnitine 1 g PO DAILY 07/26/20 07/26/20 History garlic 5,000 mg PO DAILY 07/26/20 07/26/20 History Patient History Medical History Acute kidney injury BPH (benign prostatic hyperplasia) CAD (coronary artery disease) Cardiac murmur Cataract Chronic diastolic (congestive) heart failure Chronic venous insufficiency Chronic venous stasis CKD (chronic kidney disease) Diabetes mellitus, type 2 IDDM Diabetic foot ulcer associated with type 2 diabetes mellitus Diabetic nephropathy Diabetic retinopathy Dysphagia Esophageal dysmotility History of epistaxis History of gastric ulcer History of GI bleed History of sleep apnea Hypercholesterolemia Hypertension Hypothyroidism Insulin pump in place Ischemic cardiomyopathy LVH (left ventricular hypertrophy) Lymphedema Microalbuminuria Myocardial infarction 2011 Neuropathy Protein in urine Secondary hyperparathyroidism of renal origin Swallowing dysfunction Trigeminal neuralgia of right side of face Uncontrolled type 2 diabetes mellitus with insulin therapy Vitamin D deficiency Surgical History History of appendectomy History of cardiac catheterization 2012 - [place] --> CABG History of colonoscopy (01/23/07) Dr. Gore, sigmoid diverticulosis, otherwise normal, recheck recommended 10 years History of coronary artery bypass graft 3 [facility] - 2012 - follows w/ Dr. Calderon (reports last visit 6-7 years ago) History of esophagogastroduodenoscopy (EGD) History of left cataract surgery History of nasal cauterization History of tonsillectomy Family History Mother Family history of diabetes mellitus Ulcerative colitis Uncle Family history of diabetes mellitus Aunt Family history of diabetes mellitus Unknown Hypertension Other Heart disease History of tooth extraction No family history of adverse response to anesthesia No family history of bleeding disorder Stroke Denies family history of Ovarian cancer Prostate cancer Coronary heart disease Breast cancer Scrotal edema Colorectal cancer Social History Smoking Status: Never smoker Second Hand Exposure: Yes; Hx Alcohol Use: Yes Alcohol type: wine Hx Substance Use: No Preferred Language: Vietnamese Communication Ability: Effective Visual Impairment: No Limitations Hearing Ability: Normal Cutter Grinder Operator Required: No Beliefs That Will Affect Care: None marital status: Current Living Situation: Spouse current occupational status: retired Other Information That Helps Us Care for You: No Feels Safe at Home: Yes Safety Concerns: Feels Safe At This Time Childhood Exposure to Second-Hand Smoke: No caffeine: Yes during the past year weight has: remained stable Dental Care, Regularly: Yes Seatbelt Use: never Sunscreen Use: No Assistive Devices: Walker Review of Systems Review of Systems: All systems reviewed & are unremarkable except as noted in HPI & below Physical Exam Physical Exam: Constitutional: Alert, cooperative and in no distress. He is overweight. HEENT: Unremarkable Neck: No jugular venous distention, carotid pulses are irregular but otherwise normal and equal bilaterally without bruits. Pulmonary: Clear to auscultation bilaterally. Cardiac: Irregular slow rhythm with no murmur, gallop or rub. Abdomen: Soft, nontender with normal bowel sounds. Extremities: +3 bilateral pretibial edema. Distal pulses are not palpable. Neurologic: No focal findings. Gait was not tested. Skin: No rash, ecchymoses or petechiae. He does have ulceration of his lower extremities. Results & Data ([facility]) Vital Signs (Past 12 Hours) Vital Signs Temp Pulse Pulse Resp BP BP Pulse Ox 07/27/20 11:31 36.8 C 67 18 146/70 H 90 07/27/20 07:38 56 L 07/27/20 04:42 37.1 C 66 18 135/56 L 92 Laboratory Results Cardiac Enzymes 07/26/20 Range/Units 12:38 AST 21 (15-37) U/L Troponin I 0.029 (0-0.045) ng/ml Coagulation 07/26/20 Range/Units 12:38 PT 11.7 (9.0-12.0) Seconds APTT 27.5 (21.0-31.0) Seconds CBC 07/27/20 Range/Units 09:40 WBC 6.48 (4.8-10.8) K/uL RBC 3.95 L (4.7-6.1) M/uL Hgb 12.6 L (14.0-18.0) g/dL Hct 38.3 L (42-52) % Plt Count 138 (130-400) K/uL Neut # (Auto) 4.74 (1.4-6.5) K/uL Lymph # (Auto) 0.90 L (1.2-3.4) K/uL [place] # (Auto) 0.75 H (0.11-0.59) K/uL Eos # (Auto) 0.06 (0-0.5) K/uL Baso # (Auto) 0.02 (0-0.2) K/uL Comprehensive Metabolic Panel 07/26/20 07/27/20 Range/Units 12:38 09:40 Sodium 143 141 (136-145) mmol/L Potassium 4.1 3.9 (3.5-5.1) mmol/L Chloride 111 H 108 H (98-107) mmol/L Carbon Dioxide 26 24 (21-32) mmol/L BUN 46 H 47 H (7-18) mg/dl Creatinine 1.68 H 1.81 H (0.6-1.4) mg/dl Glucose 96 166 H (70-99) mg/dl Calcium 8.8 8.7 (8.5-10.1) mg/dl AST 21 (15-37) U/L ALT 22 (12-78) U/L Alkaline Phosphatase 183 H (45-117) U/L Total Protein 7.4 (6.4-8.2) gm/dl Albumin 3.0 L (3.4-5.0) gm/dl Intake and Output 07/26/20 07/27/20 07/27/20 22:59 06:59 14:59 Intake Total 275 / 555 160 / 555 120 / 120 Output Total 725 / 1525 800 / 1525 Balance -450 / -970 -640 / -970 120 / 120 Intake: IV 120 / 240 120 / 120 Zosyn 4.5 gm In D5 100 ml @ 30 120 / 120 120 / 120 mls/hr IV Q8H [facility] Rx#:[id number] Oral 275 / 315 40 / 315 Output: Urine 725 / 1525 800 / 1525 Other: Weight 112.6 kg Weight Measurement Method Standing Scale Diagnostic Findings His electrocardiogram at noon on July 26, 2020 shows atrial fibrillation with a heart rate of 58 bpm and a left bundle branch block pattern. His last el ectrocardiogram here is from 2015 and a left bundle branch block pattern was not present, neither was atrial fibrillation. Telemetry: Atrial fibrillation with a controlled heart rate since admission. I reviewed it in detail and it does appear to be atrial fibrillation throughout although there are periods of time where the rhythm is quite regular and I thought it was conceivable that it may have been sinus with marked first-degree AV block (possibly with a P wave at the end of the T wave) but I do not think it is, I believe it to be atrial fibrillation. PG Care Time/CCT Total # of Minutes Spent Total Time Spent with Patient: Total time spent is greater than 50% in coordination of care (as documented) at patient's floor/unit and/or counseling patient: Coding Level of Care Code 69335 Initial Inpt Care Lvl 3 Diagnoses Atrial fibrillation I48.91 CAD (coronary artery disease) I25.10 Ischemic cardiomyopathy I25.5 Edema R60.9 Congestive heart failure I50.9 Acute kidney injury superimposed on chronic kidney disease N17.9; N18.9
[2020-07-27] MEDS ORDERED: Nursing to Pharmacy Communication SCH (15:15)
--- NOTE | 2020-07-27 19:08 | Billing Data ---
Date of Service July 27, 2020 Coding Level of Care Code 51449 Subseq Hosp Care Lvl 3
[2020-07-27] MEDS: LIDOCAINE 5% 1 PATCH TD SCH (21:09)
--- NOTE | 2020-07-27 22:06 | Wound Consultation ---
Date of Consultation July 27, 2020 Assessment & Plan (1) Venous ulcers of both lower extremities: 79 year old male with b/l venous stasis ulcers and questionable underlying cellulitis. No debridement was required. Wounds will be dressed with Aquacel Ag and ultrasorb pads. When euvolemic consider adding compression. Continue empiric zosyn. Thank you for allowing me to participate in the care of this patient. Will continue to follow. Please call with any questions. (2) Cellulitis of right lower leg: History of Present Illness Reason for Consultation: venous leg wounds Attending Physician: Kalen Luevano DO History of Present Illness This is a 79-year-old male with a history of venous stasis ulcers, diabetes, [place] with a history of CABG x3, hypothyroidism, hyperlipidemia, hypertension, trigeminal neuralgia and vitamin D deficiency who is well-known to the wound clinic and was directed to the ER due to increased shortness of breath and leg edema. Patient was found to be volume overloaded and was admitted. Is currently being diuresed with IV Bumex. Is also felt that he is underlying cellulitis component to his venous stasis ulcers and is currently on IV Zosyn with cultures pending. I am being consulted for patient's chronic venous wounds. Allergies Allergy/AdvReac Type Severity Reaction Status Date / Time cephalexin Allergy Intermediate pimple Verified 07/26/20 13:25 like rash cat dander Allergy Mild NO ALLERGY Verified 07/26/20 13:25 PATIENT PREFERENCE ragweed pollen Allergy Unknown SHORTNESS Verified 07/26/20 13:25 OF BREATH lisinopril AdvReac Mild Cough Verified 07/26/20 13:25 Rkzpali-Hye-Axj Reductase AdvReac Mild SEE NOTE Verified 07/26/20 13:25 Inhibitor NO ALLERGY Home Medications Home Medications Medication Instructions Recorded Confirmed Type bilberry 100 mg PO DAILY 09/20/19 07/26/20 History Urinozinc Prostate Formula 100 mg PO DAILY 10/23/19 07/26/20 History levothyroxine 75 mcg tablet 75 mcg PO DAILY #90 tab 12/12/19 07/26/20 Rx insulin aspart U-100 100 unit/mL 50 unit SUBCUT DAILY 02/13/20 07/26/20 History subcutaneous solution mupirocin 2 % topical ointment 1 appln TOP BID #22 gm 03/19/20 07/26/20 Rx Lactobac #2-Bifido #1-S. therm 0 mg PO DAILY 06/16/20 07/26/20 History Marshmallow Root See Rx Instructions PO BID 06/16/20 07/26/20 History milk thistle 500 mg capsule 1,000 mg PO DAILY cap 06/16/20 07/26/20 History olive leaf extract 0 mg PO DAILY 06/16/20 07/26/20 History simethicone 125 mg capsule 125 mg PO DAILY PRN 06/16/20 07/26/20 History vitamins A,C,P-pvhz-lohrcy 1 tab PO BID 06/16/20 07/26/20 History Super K Complex 0 mg PO DAILY 06/30/20 07/26/20 History bumetanide 1 mg tablet 2 mg PO BID #120 tab 06/30/20 07/26/20 Rx calcitriol 0.5 mcg capsule 0.5 mcg PO UD #45 cap 06/30/20 07/26/20 Rx gentamicin 0.1 % topical ointment 1 applic TOPICAL DAILY 14 Days #30 07/08/20 07/26/20 Rx g acetylcarnitine 1 g PO DAILY 07/26/20 07/26/20 History garlic 5,000 mg PO DAILY 07/26/20 07/26/20 History Patient History Medical History Acute kidney injury BPH (benign prostatic hyperplasia) CAD (coronary artery disease) Cardiac murmur Cataract Chronic diastolic (congestive) heart failure Chronic venous insufficiency Chronic venous stasis CKD (chronic kidney disease) Diabetes mellitus, type 2 IDDM Diabetic foot ulcer associated with type 2 diabetes mellitus Diabetic nephropathy Diabetic retinopathy Dysphagia Esophageal dysmotility History of epistaxis History of gastric ulcer History of GI bleed History of sleep apnea Hypercholesterolemia Hypertension Hypothyroidism Insulin pump in place Ischemic cardiomyopathy LVH (left ventricular hypertrophy) Lymphedema Microalbuminuria Myocardial infarction 2012 Neuropathy Protein in urine Secondary hyperparathyroidism of renal origin Swallowing dysfunction Trigeminal neuralgia of right side of face Uncontrolled type 2 diabetes mellitus with insulin therapy Vitamin D deficiency Surgical History History of appendectomy History of cardiac catheterization 2012 - [place] - [place] --> CABG History of colonoscopy (01/23/07) Dr. Gore, sigmoid diverticulosis, otherwise normal, recheck recommended 10 years History of coronary artery bypass graft 3 VESSELS - 2011 - follows w/ Dr. Calderon (reports last visit 6-7 years ago) History of esophagogastroduodenoscopy (EGD) History of left cataract surgery History of nasal cauterization History of tonsillectomy Family History Mother Family history of diabetes mellitus Ulcerative colitis Uncle Family history of diabetes mellitus Aunt Family history of diabetes mellitus Unknown Hypertension Other Heart disease History of tooth extraction No family history of adverse response to anesthesia No family history of bleeding disorder Stroke Denies family history of Ovarian cancer Prostate cancer Coronary heart disease Breast cancer Scrotal edema Colorectal cancer Social History Smoking Status: Never smoker Second Hand Exposure: Yes; Hx Alcohol Use: Yes Alcohol type: wine Hx Substance Use: No Preferred Language: Panamanian Communication Ability: Effective Visual Impairment: No Limitations Hearing Ability: Normal Sawmill Supervisor Required: No Beliefs That Will Affect Care: None marital status: Current Living Situation: Spouse current occupational status: retired Other Information That Helps Us Care for You: No Feels Safe at Home: Yes Safety Concerns: Feels Safe At This Time Childhood Exposure to Second-Hand Smoke: No caffeine: Yes during the past year weight has: remained stable Dental Care, Regularly: Yes Seatbelt Use: never Sunscreen Use: No Assistive Devices: Walker Review of Systems Review of Systems: All systems reviewed & are unremarkable except as noted in HPI & below Physical Exam Physical Exam: Temp Pulse Resp BP Pulse Ox 36.8 C 66 22 150/72 H 92 07/27/20 19:56 07/27/20 19:56 07/27/20 19:56 07/27/20 19:56 07/27/20 19:56 Constitutional: WD/WN, vitals as above Eyes: PERRL, conjunctivae normal, anicteric sclerae Skin: Wounds measuring as recorded in nursing documentation. Wounds are covered with fibrin, slough and nonviable skin. Results & Data ([facility]) Vital Signs (Past 12 Hours) Vital Signs Temp Pulse Resp BP BP Pulse Ox 07/27/20 19:56 36.8 C 66 22 150/72 H 92 07/27/20 15:43 36.8 C 60 20 158/78 H 91 11/10/20 11:31 36.8 C 67 18 146/70 H 90 Laboratory Results 07/27/20 07/27/20 07/27/20 Range/Units 20:30 16:31 12:12 WBC (4.8-10.8) K/uL RBC (4.7-6.1) M/uL Hgb (14.0-18.0) g/dL Hct (42-52) % MCV (80-100) fL MCH (25-34) pg MCHC (32-36) g/dL RDW Std Deviation (36.4-46.3) fL RDW Coeff of Malcolm (11.5-14.5) % Plt Count (130-400) K/uL MPV (7.4-10.4) fL Immature Gran % (Auto) % Neut % (Auto) % Lymph % (Auto) % Carbon % (Auto) % Eos % (Auto) % Baso % (Auto) % Neut # (Auto) (1.4-6.5) K/uL Lymph # (Auto) (1.2-3.4) K/uL Carbon # (Auto) (0.11-0.59) K/uL Eos # (Auto) (0-0.5) K/uL Baso # (Auto) (0-0.2) K/uL Immature Gran # (Auto) (0.00-0.02) K/uL Sodium (136-145) mmol/L Potassium (3.5-5.1) mmol/L Chloride (98-107) mmol/L Carbon Dioxide (21-32) mmol/L Anion Gap (3-11) BUN (7-18) mg/dl Creatinine (0.6-1.4) mg/dl Est Cr Clr Drug Dosing ml/min Est GFR ( Amer) Est GFR (Non-Af Amer) BUN/Creatinine Ratio (10-20) Glucose (70-99) mg/dl POC Glucose 249 H 261 H 151 H (70-99) mg/dl Estimat Average Glucose mg/dl Hemoglobin A1c (4.5-5.6) % Calcium (8.5-10.1) mg/dl 07/27/20 07/27/20 07/27/20 Range/Units 09:40 09:40 09:40 WBC 6.48 (4.8-10.8) K/uL RBC 3.95 L (4.7-6.1) M/uL Hgb 12.6 L (14.0-18.0) g/dL Hct 38.3 L (42-52) % MCV 97.0 (80-100) fL MCH 31.9 (25-34) pg MCHC 32.9 (32-36) g/dL RDW Std Deviation 53.4 H (36.4-46.3) fL RDW Coeff of Malcolm 15.1 H (11.5-14.5) % Plt Count 138 (130-400) K/uL MPV 11.0 H (7.4-10.4) fL Immature Gran % (Auto) 0.2 % Neut % (Auto) 73.1 % Lymph % (Auto) 13.9 % Carbon % (Auto) 11.6 % Eos % (Auto) 0.9 % Baso % (Auto) 0.3 % Neut # (Auto) 4.74 (1.4-6.5) K/uL Lymph # (Auto) 0.90 L (1.2-3.4) K/uL Carbon # (Auto) 0.75 H (0.11-0.59) K/uL Eos # (Auto) 0.06 (0-0.5) K/uL Baso # (Auto) 0.02 (0-0.2) K/uL Immature Gran # (Auto) 0.01 (0.00-0.02) K/uL Sodium 141 (136-145) mmol/L Potassium 3.9 (3.5-5.1) mmol/L Chloride 108 H (98-107) mmol/L Carbon Dioxide 24 (21-32) mmol/L Anion Gap 9.0 (3-11) BUN 47 H (7-18) mg/dl Creatinine 1.81 H (0.6-1.4) mg/dl Est Cr Clr Drug Dosing 40.3 ml/min Est GFR ( Amer) 40.6 Est GFR (Non-Af Amer) 35.0 BUN/Creatinine Ratio 25.9 H (10-20) Glucose 166 H (70-99) mg/dl POC Glucose (70-99) mg/dl Estimat Average Glucose 194 mg/dl Hemoglobin A1c 8.4 H (4.5-5.6) % Calcium 8.7 (8.5-10.1) mg/dl 07/27/20 Range/Units 08:59 WBC (4.8-10.8) K/uL RBC (4.7-6.1) M/uL Hgb (14.0-18.0) g/dL Hct (42-52) % MCV (80-100) fL MCH (25-34) pg MCHC (32-36) g/dL RDW Std Deviation (36.4-46.3) fL RDW Coeff of Malcolm (11.5-14.5) % Plt Count (130-400) K/uL MPV (7.4-10.4) fL Immature Gran % (Auto) % Neut % (Auto) % Lymph % (Auto) % Carbon % (Auto) % Eos % (Auto) % Baso % (Auto) % Neut # (Auto) (1.4-6.5) K/uL Lymph # (Auto) (1.2-3.4) K/uL Carbon # (Auto) (0.11-0.59) K/uL Eos # (Auto) (0-0.5) K/uL Baso # (Auto) (0-0.2) K/uL Immature Gran # (Auto) (0.00-0.02) K/uL Sodium (136-145) mmol/L Potassium (3.5-5.1) mmol/L Chloride (98-107) mmol/L Carbon Dioxide (21-32) mmol/L Anion Gap (3-11) BUN (7-18) mg/dl Creatinine (0.6-1.4) mg/dl Est Cr Clr Drug Dosing ml/min Est GFR ( Amer) Est GFR (Non-Af Amer) BUN/Creatinine Ratio (10-20) Glucose (70-99) mg/dl POC Glucose 141 H (70-99) mg/dl Estimat Average Glucose mg/dl Hemoglobin A1c (4.5-5.6) % Calcium (8.5-10.1) mg/dl PG Care Time/CCT Total # of Minutes Spent Total Time Spent with Patient: Total time spent is greater than 50% in coordination of care (as documented) at patient's floor/unit and/or counseling patient: Coding Level of Care Code 30884 Inpt Consult Level 3 Diagnoses Venous ulcers of both lower extremities I83.019; I83.029; L97.919; L97.929 Cellulitis of right lower leg L03.115
[2020-07-28] MEDS: MELATONIN 3 MG TAB PO PRN (00:15)
[2020-07-28] MEDS: TROLAMINE SALICYLATE 10% CRM 255 APPLN/85 GM TUBE EXT PRN ×2 (04:00→23:16)
[2020-07-28] MEDS: PIPERACILLIN/TAZOBACTAM 4.5 GM in DEXTROSE 5% 100 ML IV SCH ×3 (04:55→20:24)
[2020-07-28 05:39] LABS: Basophils # (auto) 0.03 K/uL (0-0.2); Basophils % (auto) 0.5 %; Eosinophils # (auto) 0.14 K/uL (0-0.5); Eosinophils % (auto) 2.4 %; Hematocrit (blood only) 37.9 % (42-52); Hemoglobin 12.5 g/dL (14.0-18.0); Immature Granulocytes # (auto) 0.02 K/uL (0.00-0.02); Immature Granulocytes % (auto) 0.3 %; Lymphocytes % (auto) 18.8 %; Mean Corpuscular Hemoglobin 32.1 pg (25-34); Mean Corpuscular Volume 97.2 fL (80-100); Mean Platelet Volume 10.9 fL (7.4-10.4); Monocytes # (auto) 0.77 K/uL (0.11-0.59); Monocytes % (auto) 13.1 %; Neutrophils % (auto) 64.9 %; Platelet Count 135 K/uL (130-400); RDW Coefficient of Variation 15.4 % (11.5-14.5); RDW Standard Deviation 54.2 fL (36.4-46.3); White Blood Count 5.86 K/uL (4.8-10.8)
[2020-07-28 06:22] LABS: BUN Creatinine Ratio 22.9 (10-20); Calcium 8.3 mg/dl (8.5-10.1); Creatinine Clr Calc Pharmacy 31.6 ml/min; Est GFR (African American) 30.2; Est GFR (Non-African American) 26.1; Magnesium 2.1 mg/dl (1.8-2.4); Potassium 3.5 mmol/L (3.5-5.1)
[2020-07-28] MEDS: LEVOTHYROXINE SODIUM 75 MCG TABLET PO SCH (06:41)
[2020-07-28] MEDS: DICLOFENAC SOD 1% GEL 100 GM TUBE EXT SCH ×4 (07:32→20:26)
[2020-07-28] MEDS: CALCITRIOL 0.25 MCG CAPSULE PO SCH (07:32)
[2020-07-28] MEDS: APIXABAN 5 MG TABLET PO SCH ×2 (07:34→20:25)
[2020-07-28] MEDS: INSULIN ASPART 100 UNITS/ML 3 ML PEN SC SCH ×4 (08:35→20:27)
[2020-07-28] MEDS: INSULIN GLARGINE SOLOSTAR 100 UNITS/ML 3 ML PEN SC SCH ×2 (08:35→20:27)
--- NOTE | 2020-07-28 10:38 | Nephrology Progress Note ---
Date of Service July 28, 2020 Assessment & Plan (1) Lower extremity edema: * LE and genital edema likely reflective of LVH, elevated R heart pressure and questionable adherence to prescribed diuretic regimen * Recommend 1500 mg/day NaCl restricted diet * Resume IV Bumex 2 mg BID - will likely need to accept worsening kidney function in order to alleviate LE/genital edema. Discussed in detail w/ patient and spouse this am. Patient indicates that he is agreeable to medical management but does not want dialysis. He is familiar w/ dialysis due to a close friend who had been on HD and did poorly * Recommend scrotal elevation (2) CKD (chronic kidney disease) stage 3, GFR 30-59 ml/min: * Baseline Cr 1.8. Kidney function and electrolyte balance remain acceptable at this time * 07/06 renal US: R 12.3cm, L 12.5cm. No hydronephrosis * Urine sediment this admission is acellular. 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 Once rendered euvolemic, may consider low dose TIMO/ARB (4) Ischemic cardiomyopathy: * Recent echocardiogram w/ hypokinesis of LV * Irregular heart rhythm today c/w atrial fibrillation * Await Cardiology input Admission and Anticipated Discharge Date Admission Date: July 26, 2020 Subjective Mr. Hernandes was seen & examined in his hospital room this morning. He reports brisk UO. I&O's were matched overnight. Weights do not appear reliable (112 --> 121kg overnight?) Review of Systems Constitutional: no fever Eyes: no problem reported Ear, Nose, Mouth, Throat: no problem reported Respiratory: no dyspnea Cardiovascular: + edema; no chest pain Gastrointestinal: no abdominal pain, no nausea and no diarrhea/loose stools Genitourinary: + urinary hesitancy; no dysuria and no hematuria Musculoskeletal: no back pain Integumentary: + skin swelling Neurologic: no dizziness Physical Exam Constitutional: + ill appearing; not in distress Eyes: PERRL, conjunctivae normal, anicteric sclerae ENMT: external ear and nose normal, oropharynx normal Neck: trachea midline, no thyromegaly Respiratory: normal respiratory effort, lungs clear to auscultation Cardiovascular: Rate/Rhythm: + irregularly irregular Extremities: + edema Musculoskeletal: Extremities: no cyanosis Skin: + lesion (bullous lesion dorsum of L foot) Neurologic: awake Results & Data ([facility]) Vital Signs (Past 12 Hours) Vital Signs Temp Pulse Resp BP Pulse Ox 07/28/20 07:23 36.4 C L 48 L 20 153/72 H 92 07/28/20 02:53 37 C 47 L 20 127/63 90 07/27/20 23:53 36.9 C 56 L 18 147/68 H 91 Laboratory Results Laboratory Tests 07/28/20 07/28/20 05:21 05:21 WBC 5.86 Hgb 12.5 L Hct 37.9 L Plt Count 135 Sodium 141 Potassium 3.5 Chloride 107 Carbon Dioxide 26 BUN 53 H Creatinine 2.31 H D Glucose 139 H Calcium 8.3 L PG Care Time/CCT Total # of Minutes Spent Total Time Spent with Patient: Total time spent is greater than 50% in coordination of care (as documented) at patient's floor/unit and/or counseling patient: Coding Level of Care Code 36844 Subseq Hosp Care Lvl 3 Diagnoses Lower extremity edema R60.0 CKD (chronic kidney disease) stage 3, GFR 30-59 ml/min N18.3 LVH (left ventricular hypertrophy) I51.7 Ischemic cardiomyopathy I25.5
[2020-07-28] MEDS: MICONAZOLE NITRATE 2% CR 30 GM TUBE EXT SCH ×2 (12:18→20:28)
--- NOTE | 2020-07-28 12:37 | Hospitalist Progress Note ---
Date of Service July 28, 2020 Assessment & Plan (1) Venous ulcers of both lower extremities: Patient is a 79 year old male with PMHx CHF, Venous stasis w/ ulcers, CKD, CAD, Hypothyroidism, and DM2 who presented initially with worsening edema and SOB over the course of several months. Patient had noted he had stopped taking his diuretic having felt that it was not helping his symptoms and was referred to the hospital after a wound check in regards to his venous stasis ulcers which had grown pseudomonas in the past. Acute on Chronic CHF -Patient with worsening SOB, Edema, elevated BNP, CXR showing Mild Pulmonary Edema, and corroborating history of discontinuing diuretic use -Aggressive diuresis with Bumex 2mg BID -TTE from 06/30 with EF 40-45% with mild to moderately reduced LVSF -At this point in time, patient appearing relatively diuresed and dry, but due to significant edema in LE and inability apply compression as such will continue with Bumex per Nephrology's recommendation. -Will monitor kidney function closely as patient is adamant he would not want hemodialysis. -Strict I/O's -Fluid restriction 1200ml and Salt restriction 1500mg daily Venous Stasis -Wound consulted and following -With pseudomonal overgrowth, continuing Zosyn -Patient would likely benefit with compression, though difficult with acute swelling -Will continue with diuresis as above -Will also place patient in Trendelenburg position for 30 minutes 3x/day to encourage elevation Atrial Fibrillation, new onset -No prior history per patient -Rate controlled without need for rate controlling agents -Cardiology consulted -[id number] with 9.7% risk of stroke in the following 10 years -Discussed with patient about importance of anticoagulation for prevention of stroke -Recommend NOAC (eliquis), but patient states he would prefer something more herbal such as Bilberry -Discussed in length about how we cannot make that recommendation to take Bilberry and patient understanding, though would still like to defer NOAC Acute on Chronic Kidney Injury -Base Cr ~1.8 -Elevated this AM to 2.31, though expected with aggressive diuresis -Nephrology consulted -Will continue aggressive diuresis with expectations of some CHERELLE, will monitor closely -Patient noting he DOES NOT WANT DIALYSIS, will keep in close mind while diuresing patient Cellulitis -?Cellulitis vs Venous stasis in nature -Prior wound cultures growing Pseudomonas, will continue Zosyn for coverage at this time Groin Yeast/Intertrigo -Will start Miconazole 2% BID -If no improvement in the next 3-4 days, can consider one time dose of oral Fluconazole CAD -Involving bypass graft in 2013 -No symptoms suggestive of progression of disease -Recommend ASA and Statin, though patient not agreeable to take. Hypothyroidism -TSH 9 with T4 1.22 -Continue Levothyroxine 75mcg daily -Can repeat TSH 1 month after discharge when patient not in acute exacerbation DM2 -Patient with Free Gaetano and Insulin pump at home -Lantus and Novolog inpatient Dispo: Med/Surg Tele FEN: HH Diet, Low Sodium 1500mg, DM2, Fluid restriction 1200ml DVT: Recommend Eliquis, but patient refusing and prefers to use Bilberry for his anticoagulation. Code: DNR/DNI (2) Congestive heart failure: (3) Atrial fibrillation: (4) Acute kidney injury superimposed on chronic kidney disease: Admission and Anticipated Discharge Date Admission Date: July 26, 2020 Supervising Physician Co-Signing Physician Notes I personally examined the patient and verified all elizabeth points of history and exam, discussed case, and agree with decision making with Dr Guardado. legs feeling better. ongoing discussions on goals w diuresis/swelling/CrCl. is clear he would not want HD. vitals noted nad heent nc at mmm breathing unlabored no accessory muscles ongoing diffuse edema w venous stasis changes and blistering but better than before. groin w yeast/intertrigo changes volume overload - appearing to be mostly R sided/venous stasis, probably w a degree of chronic combined systolic and diastolic CHF - but with not a lot of pulm edema or dyspnea compared to his peripheral edema, i suspect the situation is venous stasis related far greater than failure. CHF component appears to have resolved. R sided fluid sitaution better than expected would be but with significant rise in Cr. d/w nephro - and diurese again aggressively today - but will need to temper improvement in swelling off of risk of worsening CrCl venous stasis ulcers w pseudomonal overgrowth - wound care, zosyn, improving otherwise as above Subjective Patient evaluated at the bedside this morning. Patient noting that his breathing had significantly improved since admission. Today his concerns were more related to a "systemic fungal infection" that originated in his groin and had been present for roughly 1 year now. He notes that he has tried some herbal remedies in regards to treatment, but that it never fully would treat the yeast. He also feels that his swelling has improved drastically, especially in his upper thighs and that they no longer feel as hard. He still notes the bullae on his legs and that wound care had discussed about wrapping up his legs, however, they would have to wait until he was euvolemic. No other concerns at this time. Review of Systems Constitutional: + weakness; no fever and no chills Eyes: no worsening vision Ear, Nose, Mouth, Throat: no dizziness Respiratory: + dyspnea on exertion; no cough and no dyspnea Cardiovascular: + dyspnea on exertion and + edema; no chest pain, no dyspnea, no dyspnea at rest and no palpitations Gastrointestinal: no abdominal pain, no nausea and no vomiting Genitourinary: + scrotal swelling (though improved ) Integumentary: + skin ulcer and + skin swelling Venous stasis changes on LE bilateral Fairly taught bullae on patients L foot Physical Exam Constitutional: well developed, well nourished and + overweight; no acute distress Eyes: PERRL, conjunctivae normal, anicteric sclerae ENMT: external ear and nose normal, oropharynx normal Neck: trachea midline, no thyromegaly Respiratory: normal respiratory effort, lungs clear to auscultation Cardiovascular: Rate/Rhythm: + irregularly irregular Heart Sounds: no murmur Extremities: + edema (+2-3 in LE b/l); no calf tenderness Gastrointestinal (Abdomen): Inspection/Auscultation: abdomen normal to inspection, normal bowel sounds, + abdominal edema and + significant pannus Percussion/Palpation: abdomen nontender Skin: Venous stasis changes of LE bilateral Tense bullae on the dorsal aspect of the L foot, non-weeping Irritation and erythema noted in the inter-folds of patients groin and around the scrotum/perineum Psychiatric: Orientation: alert and oriented x 3 Results & Data Results & Data ([facility]) Vital Signs (Past 12 Hours) Vital Signs Temp Pulse Resp BP Pulse Ox 07/28/20 11:27 36.7 C 51 L 18 150/52 H 91 07/28/20 07:23 36.4 C L 48 L 20 153/72 H 92 07/28/20 02:53 37 C 47 L 20 127/63 90 Resident Activity Tracking Resident Involvement: Resident Care Provided Care Provided: Adult [facility] Medicine
--- NOTE | 2020-07-28 17:09 | Cardiology Progress Note ---
Date of Service July 28, 2020 Assessment & Plan (1) Atrial fibrillation: He is in atrial fibrillation with a controlled heart rate. He should be anticoagulated, I discussed this with him both today and yesterday, today his is present. He feels that bilberry is a safer and more effective anticoagulant than the ones that we recommend. I told him that I cannot do anything but recommend either warfarin (or the newer agents which I prefer) but he is still considering bilberry. He is willing to look into using Eliquis however which would be my first choice. His atrial fibrillation is well controlled without medications so I would avoid medications which affect the AV node since his heart rate is slow even without them. We could consider conversion to sinus rhythm, there may be some advantage in doing that with his edema, but I do not know the duration of the atrial fibrillation and I cannot do that unless he takes an anticoagulant. If he is willing to take an anticoagulant I would recommend doing that for a month and then converting the rhythm. In the past he had sinus rhythm with marked first-degree AV block (that was last seen in 2017) so conversion may result in second-degree or higher AV block which would potentially be an issue. This will need further discussion but since he is not anticoagulated we cannot perform cardioversion now in any case. (2) CAD (coronary artery disease): He has coronary disease and has had bypass surgery in the past, he does not have symptoms to suggest progression of disease. His left ventricular function has not changed and therefore I do not believe we should evaluate him for disease progression. Risk factor modification of course would be in order, that would include platelet inhibitors and statins although he has not been willing to take them. (3) Ischemic cardiomyopathy: He does have an ischemic cardiomyopathy although it has been quite stable for a number of years and it is not severe. This could lead to systolic heart f ailure although with an ejection fraction in the 40s that normally is not a big factor but he does have severe LVH on top of it. Ideally we would have him on beta-blockade as well as TIMO inhibitors, with his heart rate I do not think we can use beta-blockers, with his kidney function I do not think we can use TIMO inhibitors, therefore there is not a lot we can do with his left ventricular function with medical therapy. We could try some of the second line drugs but he is disinclined to use conventional medications in any case and I think especially if they are not very effective he would be resistant. Since his ejection fraction has not changed in quite a few years I do not think it is urgent that we get him on anything immediately. (4) Edema: From his description (I do not have office records to corroborate his description but his agrees) his edema has been getting worse over the last several months and especially over the last several weeks and has not been this severe for the last several years. That raises the possibility that something changed in the last month or 2, perhaps development of atrial fibrillation was what triggered the current worsening of his fluid retention and edema. We do not have records to determine with any precision when the atrial fibrillation might have started although I am going to try to check his echocardiogram from June to see if I can tell if he is in atrial fibrillation then. If atrial fibrillation is partially to blame for his worsening edema then conversion to sinus rhythm may help him mobilize fluid and make dealing with the edema easier. We may be limited our ability to eliminate his edema as things stand now because of his kidney disease. (5) Congestive heart failure: He does not seem to have a lot of left-sided congestive heart failure, he does have some degree of left ventricular dysfunction and probably has some element of systolic heart failure, he also has the likelihood of diastolic dysfunction due to his severe LVH. Either way removing fluid is the ideal approach however we may run into difficulties with kidney function. That did worsen this morning compared to his prior measurements yet he still has a lot of edema. I will leave management of his diuresis to the nephrologists. (6) Acute kidney injury superimposed on chronic kidney disease: He has longstanding kidney disease which I suppose is a combination of hypertension and diabetes with a component of cardiorenal syndrome now. That may interfere with our ability to mobilize fluid but I would continue with diuresis if possible. Admission and Anticipated Discharge Date Admission Date: July 26, 2020 Subjective Today he seems to be in good spirits, he is willing to stay here until we can try to get some resolution of his edema. He does not have any other cardiovascular symptoms such as chest discomfort, palpitations, lightheadedness or dizziness. Physical Exam Physical Exam: Constitutional: Alert, cooperative and in no distress. He is overweight. HEENT: Unremarkable Neck: No jugular venous distention, carotid pulses are irregular but otherwise normal and equal bilaterally without bruits. Pulmonary: Clear to auscultation bilaterally. Cardiac: Irregular slow rhythm with no murmur, gallop or rub. Abdomen: Soft, nontender with normal bowel sounds. Extremities: +3 bilateral pretibial edema. Distal pulses are not palpable. Neurologic: No focal findings. Gait was not tested. Skin: No rash, ecchymoses or petechiae. He does have ulceration of his lower extremities. Results & Data ([facility]) Vital Signs (Past 12 Hours) Vital Signs Temp Pulse Resp BP BP Pulse Ox 07/28/20 15:00 36.7 C 55 L 20 174/83 H 90 07/28/20 11:27 36.7 C 51 L 18 150/52 H 91 07/28/20 07:23 36.4 C L 48 L 20 153/72 H 92 Laboratory Results CBC 07/28/20 Range/Units 05:21 WBC 5.86 (4.8-10.8) K/uL RBC 3.90 L (4.7-6.1) M/uL Hgb 12.5 L (14.0-18.0) g/dL Hct 37.9 L (42-52) % Plt Count 135 (130-400) K/uL Neut # (Auto) 3.80 (1.4-6.5) K/uL Lymph # (Auto) 1.10 L (1.2-3.4) K/uL [place] # (Auto) 0.77 H (0.11-0.59) K/uL Eos # (Auto) 0.14 (0-0.5) K/uL Baso # (Auto) 0.03 (0-0.2) K/uL Comprehensive Metabolic Panel 07/28/20 Range/Units 05:21 Sodium 141 (136-145) mmol/L Potassium 3.5 (3.5-5.1) mmol/L Chloride 107 (98-107) mmol/L Carbon Dioxide 26 (21-32) mmol/L BUN 53 H (7-18) mg/dl Creatinine 2.31 H D (0.6-1.4) mg/dl Glucose 139 H (70-99) mg/dl Calcium 8.3 L (8.5-10.1) mg/dl Intake and Output 07/28/20 07/28/20 07/28/20 06:59 14:59 22:59 Intake Total 200 / 1020 395 / 515 120 / 515 Balance 200 / -32 395 / 515 120 / 515 Intake: IV 120 / 360 120 / 240 120 / 240 Zosyn 4.5 gm In D5 100 ml @ 30 120 / 360 120 / 240 120 / 240 mls/hr IV Q8H ADELFO Rx#:[id number] Oral 80 / 660 275 / 275 Other: Weight 121.4 kg 121.4 kg Weight Measurement Method Built in [facility] Patient Weight 07/29/20 06:59 Weight 121.4 kg Diagnostic Findings Telemetry: Atrial fibrillation with a well-controlled heart rate PG Care Time/CCT Total # of Minutes Spent Total Time Spent with Patient: Total time spent is greater than 50% in coordination of care (as documented) at patient's floor/unit and/or counseling patient: Coding Level of Care Code 93983 Subseq Hosp Care Lvl 3 Diagnoses Atrial fibrillation I48.91 CAD (coronary artery disease) I25.10 Ischemic cardiomyopathy I25.5 Edema R60.9 Congestive heart failure I50.9 Acute kidney injury superimposed on chronic kidney disease N17.9; N18.9
[2020-07-28] MEDS: BUMETANIDE 2 MG in SYRINGE 0 ML IV SCH (17:49)
--- NOTE | 2020-07-28 17:51 | Billing Data ---
Date of Service July 28, 2020 Coding Level of Care Code 54671 Subseq Hosp Care Lvl 3
[2020-07-28] MEDS: LIDOCAINE 5% 1 PATCH TD SCH (20:26)
[2020-07-29] MEDS: PIPERACILLIN/TAZOBACTAM 4.5 GM in DEXTROSE 5% 100 ML IV SCH ×3 (04:58→20:46)
[2020-07-29] MEDS: LEVOTHYROXINE SODIUM 75 MCG TABLET PO SCH (06:08)
[2020-07-29 06:18] LABS: Basophils # (auto) 0.02 K/uL (0-0.2); Basophils % (auto) 0.4 %; Eosinophils % (auto) 3.7 %; Hematocrit (blood only) 40.9 % (42-52); Immature Granulocytes # (auto) 0.01 K/uL (0.00-0.02); Immature Granulocytes % (auto) 0.2 %; Lymphocytes # (auto) 0.78 K/uL (1.2-3.4); Lymphocytes % (auto) 14.3 %; Mean Corpuscular Hemoglobin 31.5 pg (25-34); Mean Corpuscular Hgb Conc 31.8 g/dL (32-36); Mean Platelet Volume 11.3 fL (7.4-10.4); Monocytes # (auto) 0.67 K/uL (0.11-0.59); Monocytes % (auto) 12.3 %; Neutrophils # (auto) 3.78 K/uL (1.4-6.5); Neutrophils % (auto) 69.1 %; Platelet Count 137 K/uL (130-400); RDW Coefficient of Variation 15.4 % (11.5-14.5); RDW Standard Deviation 55.5 fL (36.4-46.3); Red Blood Count 4.13 M/uL (4.7-6.1); White Blood Count 5.46 K/uL (4.8-10.8)
[2020-07-29 06:44] LABS: BUN Creatinine Ratio 24.5 (10-20); Calcium 8.4 mg/dl (8.5-10.1); Creatinine Clr Calc Pharmacy 31.4 ml/min; Est GFR (African American) 28.9; Est GFR (Non-African American) 24.9; Potassium 3.1 mmol/L (3.5-5.1)
[2020-07-29] MEDS ORDERED: POTASSIUM CHLORIDE CRTAB 20 MEQ TABCR PO STA (07:14)
--- NOTE | 2020-07-29 07:17 | Hospitalist Progress Note ---
Date of Service July 29, 2020 Assessment & Plan Admission and Anticipated Discharge Date Admission Date: July 26, 2020 Results & Data Results & Data ([facility]) Vital Signs (Past 12 Hours) Vital Signs Temp Pulse Resp BP BP Pulse Ox 07/29/20 04:15 36.7 C 79 18 162/72 H 96 07/28/20 23:41 36.4 C L 46 L 20 141/69 H 91 07/28/20 19:22 37.0 C 52 L 20 169/85 H 92
[2020-07-29] MEDS: BUMETANIDE 2 MG in SYRINGE 0 ML IV SCH ×2 (07:18→16:52)
[2020-07-29] MEDS: MICONAZOLE NITRATE 2% CR 30 GM TUBE EXT SCH ×2 (07:19→20:39)
[2020-07-29] MEDS: APIXABAN 5 MG TABLET PO SCH ×2 (07:19→20:36)
[2020-07-29] MEDS: DICLOFENAC SOD 1% GEL 100 GM TUBE EXT SCH ×4 (07:20→20:37)
[2020-07-29] MEDS: INSULIN ASPART 100 UNITS/ML 3 ML PEN SC SCH ×4 (08:28→20:38)
[2020-07-29] MEDS: INSULIN GLARGINE SOLOSTAR 100 UNITS/ML 3 ML PEN SC SCH ×2 (08:29→20:37)
--- NOTE | 2020-07-29 09:54 | Nephrology Progress Note ---
Date of Service July 29, 2020 Assessment & Plan (1) Lower extremity edema: * Cr has risen to 2.4 w/ diuresis but appears to have stabilized * LE and genital edema likely reflective of LVH, elevated R heart pressure and questionable adherence to prescribed diuretic regimen * Recommend 1500 mg/day NaCl restricted diet. Dietitian met w/ patient yesterday and provided education. He acknowledged this morning that he had been eating high sodium foods and will change his diet at home * Continue Bumex 2 mg IV BID - kidney function remains relatively stable. Question results of I&O's and daily weights. Clinically patient's pedal and pretibial edema are improved. He requires continued diuresis to help alleviate genital swelling * Recommend scrotal elevation * Patient indicates that he is agreeable to medical management but does not want dialysis. He is familiar w/ dialysis due to a close friend who had been on HD and did poorly (2) CKD (chronic kidney disease) stage 3, GFR 30-59 ml/min: * Baseline Cr had been 1.8 * 07/06 renal US: R 12.3cm, L 12.5cm. No hydronephrosis * Urine sediment this admission is acellular. 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 Once rendered euvolemic, may consider low dose TIMO/ARB (4) Ischemic cardiomyopathy: * Recent echocardiogram w/ hypokinesis of LV * Irregular heart rhythm today c/w atrial fibrillation * Await Cardiology input Admission and Anticipated Discharge Date Admission Date: July 26, 2020 Subjective Mr. Hernandes was seen & examined in his hospital room this morning. He reports brisk UO in response to IV diuretics. I&O's are recorded as even overnight. Weight has been variable. Patient notes persistent genital swelling but notes that his leg edema is mildly improved and his feet are no longer swollen. Review of Systems Constitutional: no fever Eyes: no problem reported Ear, Nose, Mouth, Throat: no problem reported Respiratory: no dyspnea Cardiovascular: + edema; no chest pain Gastrointestinal: no abdominal pain, no nausea and no diarrhea/loose stools Genitourinary: + urinary hesitancy; no dysuria and no hematuria Musculoskeletal: no back pain Neurologic: no confusion Physical Exam Constitutional: + ill appearing; not in distress Eyes: PERRL, conjunctivae normal, anicteric sclerae ENMT: external ear and nose normal, oropharynx normal Neck: trachea midline, no thyromegaly Respiratory: normal respiratory effort, lungs clear to auscultation Cardiovascular: Rate/Rhythm: + irregularly irregular Extremities: + edema (LE swelling improved. Now only 1+ pretibial edema) Gastrointestinal (Abdomen): normal bowel sounds, soft, nontender, no hepatosplenomegaly Musculoskeletal: Extremities: no cyanosis Neurologic: awake Results & Data ([facility]) Vital Signs (Past 12 Hours) Vital Signs Temp Pulse Resp BP BP Pulse Ox 07/29/20 08:00 36.5 C 60 20 170/71 H 188/91 H 91 07/29/20 04:15 36.7 C 79 18 162/72 H 96 07/28/20 23:41 36.4 C L 46 L 20 141/69 H 91 Laboratory Results Laboratory Tests 07/29/20 07/29/20 05:28 05:28 WBC 5.46 Hgb 13.0 L Hct 40.9 L Plt Count 137 Sodium 142 Potassium 3.1 L Chloride 107 Carbon Dioxide 30 BUN 59 H Creatinine 2.40 H Glucose 165 H PG Care Time/CCT Total # of Minutes Spent Total Time Spent with Patient: Total time spent is greater than 50% in coordination of care (as documented) at patient's floor/unit and/or counseling patient: Coding Level of Care Code 18622 Subseq Hosp Care Lvl 3 Diagnoses Lower extremity edema R60.0 CKD (chronic kidney disease) stage 3, GFR 30-59 ml/min N18.3 LVH (left ventricular hypertrophy) I51.7 Ischemic cardiomyopathy I25.5
--- NOTE | 2020-07-29 09:58 | Cardiology Progress Note ---
Date of Service July 29, 2020 Assessment & Plan (1) Atrial fibrillation: He is in atrial fibrillation with a controlled heart rate. He should be anticoagulated, I discussed this with him on several occasions, yesterday his was present. He feels that bilberry is a safer and more effective anticoagulant than the ones that we recommend. I told him that I cannot do anything but recommend either warfarin or the newer agents (which I prefer) but he is still considering bilberry. He is willing to look into using Eliquis however which would be my first choice. His atrial fibrillation is well controlled without medications so I would avoid medications which affect the AV node since his heart rate is slow even without them. We could consider conversion to sinus rhythm, there may be some advantage in doing that with his edema, but I do not know the duration of the atrial fibrillation and I cannot do that unless he takes an anticoagulant for a month before cardioversion. I did review his echocardiogram from June and based on the Doppler signal I do not believe there was any atrial activity even though the rhythm was quite regular. His electrocardiogram today also looks like atrial fibrillation. This is consistent with him being in atrial fibrillation for at least the last month, likely longer since. If he is willing to take an anticoagulant I would recommend doing that for a month and then converting the rhythm. In the past he had sinus rhythm with marked first-degree AV block (that was last seen in 2017) so conversion may result in second-degree or higher AV block which would potentially be an issue and we may have to consider a pacemaker. Since his r hythm is quite regular and fairly slow at times I suspect he may have a junctional escape rhythm causing the regularity while he is in atrial fibrillation. This will need further discussion but since he is not anticoagulated we cannot perform cardioversion now in any case. (2) CAD (coronary artery disease): He has coronary disease and has had bypass surgery in the past, he does not have symptoms to suggest progression of disease. His left ventricular function has not changed and therefore I do not believe we should evaluate him for disease progression. Risk factor modification of course would be in order, that would include platelet inhibitors and statins although he has not been willing to take them. (3) Ischemic cardiomyopathy: He does have an ischemic cardiomyopathy although it has been quite stable for a number of years and it is not severe. This could lead to systolic heart failure although with an ejection fraction in the 40s that normally is not a big factor but he does have severe LVH on top of it. Ideally we would have him on beta-blockade as well as TIMO inhibitors, with his heart rate I do not think we can use beta-blockers, with his kidney function I do not think we can use TIMO inhibitors now, therefore there is not a lot we can do with his left ventricular function with medical therapy. We could try some of the second line drugs but he is disinclined to use conventional medications in any case and I think especially if they are not very effective he would be resistant. Since his ejection fraction has not changed in quite a few years I do not think it is urgent that we get him on anything immediately. Another potential option is to consider biventricular pacing, he does have a quite wide electrical complex and that may help although his left ventricular function is not in the range where we normally do that. (4) Edema: From his description (I do not have office records to corroborate his description but his agrees) his edema has been getting worse over the last several months and especially over the last several weeks and has not been this severe for the last several years. That raises the possibility that something changed in the last month or 2, perhaps development of atrial fibrillation was what triggered the current worsening of his fluid retention and edema. We do not have records to determine with any precision when the atrial fibrillation might have started although from his echocardiogram I think he was in atrial fibrillation in June. If atrial fibrillation is partially to blame for his worsening edema then conversion to sinus rhythm may help him mobilize fluid and make dealing with the edema easier. We may be limited our ability to eliminate his edema as things stand now because of his kidney disease, although he does seem to be doing well in that regard with just diuresis. (5) Congestive heart failure: He does not seem to have a lot of left-sided congestive heart failure, he does have some degree of left ventricular dysfunction and probably has some element of systolic heart failure, he also has the likelihood of diastolic dysfunction due to his severe LVH. Either way removing fluid is the ideal approach however we may run into difficulties with kidney function. That did worsen with diuresis but may have stabilized, he does have some edema but has improved. I will leave management of his diuresis to the nephrologists. (6) Acute kidney injury superimposed on chronic kidney disease: He has longstanding kidney disease which I suppose is a combination of hypertension and diabetes with a component of cardiorenal syndrome now. That may interfere with our ability to mobilize fluid but I would continue with diuresis if possible. (7) RBBB (right bundle branch block): His electrocardiogram is an atypical type right bundle branch block pattern (an IVCD of the right bundle type) but the QRS duration is very wide, in excess of 160 ms. That is new compared to electrocardiograms years ago. That could lead to dyssynchrony and inefficient contraction which may have also contributed to his edema. This could potentially be improved with biventricular pacing. Admission and Anticipated Discharge Date Admission Date: July 26, 2020 Subjective He is feeling better today, however he is very sleepy and I had to wake him up several times while I was talking to him. He was sitting in his chair at his bedside. He denies shortness of breath or chest discomfort or palpitations. He feels that his legs have improved. Physical Exam Physical Exam: Constitutional: Alert, cooperative and in no distress. He is overweight. HEENT: Unremarkable Neck: No jugular venous distention, carotid pulses are irregular but otherwise n ormal and equal bilaterally without bruits. Pulmonary: Clear to auscultation bilaterally. Cardiac: Irregular slow rhythm with no murmur, gallop or rub. Abdomen: Soft, nontender with normal bowel sounds. Extremities: +2 to +3 bilateral pretibial edema. Distal pulses are not palpable. Neurologic: No focal findings. Gait was not tested. Skin: No rash, ecchymoses or petechiae. He does have ulceration of his lower extremities and signs of chronic venous stasis. Results & Data ([facility]) Vital Signs (Past 12 Hours) Vital Signs Temp Pulse Resp BP BP Pulse Ox 07/29/20 08:00 36.5 C 60 20 170/71 H 188/91 H 91 07/29/20 04:15 36.7 C 79 18 162/72 H 96 07/28/20 23:41 36.4 C L 46 L 20 141/69 H 91 Laboratory Results CBC 07/29/20 Range/Units 05:28 WBC 5.46 (4.8-10.8) K/uL RBC 4.13 L (4.7-6.1) M/uL Hgb 13.0 L (14.0-18.0) g/dL Hct 40.9 L (42-52) % Plt Count 137 (130-400) K/uL Neut # (Auto) 3.78 (1.4-6.5) K/uL Lymph # (Auto) 0.78 L (1.2-3.4) K/uL [place] # (Auto) 0.67 H (0.11-0.59) K/uL Eos # (Auto) 0.20 (0-0.5) K/uL Baso # (Auto) 0.02 (0-0.2) K/uL Comprehensive Metabolic Panel 07/29/20 Range/Units 05:28 Sodium 142 (136-145) mmol/L Potassium 3.1 L (3.5-5.1) mmol/L Chloride 107 (98-107) mmol/L Carbon Dioxide 30 (21-32) mmol/L BUN 59 H (7-18) mg/dl Creatinine 2.40 H (0.6-1.4) mg/dl Glucose 165 H (70-99) mg/dl Calcium 8.4 L (8.5-10.1) mg/dl Intake and Output 07/28/20 07/29/20 07/29/20 22:59 06:59 14:59 Intake Total 420 / 935 120 / 935 120 / 120 Output Total 350 / 350 Balance 420 / 585 -230 / 585 120 / 120 Intake: IV 120 / 360 120 / 360 120 / 120 Zosyn 4.5 gm In D5 100 ml @ 30 120 / 360 120 / 360 120 / 120 mls/hr IV Q8H ADELFO Rx#:[id number] Oral 300 / 575 Output: Urine 350 / 350 Other: Other Intake Source ice chips Weight 121.4 kg 119.5 kg Weight Measurement Method Built in [facility] Diagnostic Findings I had a twelve-lead electrocardiogram done today and that shows atrial fibrillation with a slow ventricular response. Telemetry: Atrial fibrillation I believe with periods of regular rhythm which may be junctional rhythms. I do not believe he has sinus rhythm. PG Care Time/CCT Total # of Minutes Spent Total Time Spent with Patient: Total time spent is greater than 50% in coordination of care (as documented) at patient's floor/unit and/or counseling patient: Coding Level of Care Code 68545 Subseq Hosp Care Lvl 3 Diagnoses Atrial fibrillation I48.91 CAD (coronary artery disease) I25.10 Ischemic cardiomyopathy I25.5 Edema R60.9 Congestive heart failure I50.9 Acute kidney injury superimposed on chronic kidney disease N17.9; N18.9 RBBB (right bundle branch block) I45.10
--- NOTE | 2020-07-29 10:30 | Medical Student Progress Note ---
Date of Service July 29, 2020 Assessment & Plan Admission and Anticipated Discharge Date Admission Date: July 26, 2020 Patient is a 79 year old male with PMHx CHF, Venous stasis w/ ulcers, CKD, CAD, Hypothyroidism, and DM2 who presented initially with worsening edema and SOB over the course of several months but has since improved with diuresis. Creatinine at 1.8 --> 2.3 --> 2.4 1) Acute on Chronic CHF Patient with worsening SOB, Edema, elevated BNP, CXR showing Mild Pulmonary Edema, and corroborating history of discontinuing diuretic use Aggressive diuresis with Bumex 2mg BID TTE from 06/30 with EF 40-45% with mild to moderately reduced LVSF Continued reduction of edema. Patient appearing relatively diuresed and dry, but due to significant edema in LE and inability apply compression as such will continue with Bumex per Nephrology's recommendation. Will monitor kidney function closely as patient is adamant he would not want hemodialysis. I/O: 585 Fluid restriction 1200ml and Salt restriction 1500mg daily 2) Venous Stasis Wound consulted and following With pseudomonal overgrowth, continuing Zosyn Would like PT to be consulted to improve motility. Patient would likely benefit with compression, though difficult with acute swell ing Will continue with diuresis as above 3) Atrial Fibrillation, new onset No prior history per patient Rate controlled without need for rate controlling agents Cardiology consulted reports since he is not anticoagulated we cannot perform cardioversion. [id number] with 9.7% risk of stroke in the following 10 years Recommend NOAC (eliquis), but patient states he would prefer something more herb al such as Bilberry 4) Acute on Chronic Kidney Injury Base Cr ~1.8 Elevated this AM to 2.4, though expected with aggressive diuresis but not as high as expected. Nephrology consulted which encouraged 1500 mg/day NaCl restricted diet. Had pt meet with oven builder. Will continue aggressive diuresis Patient noting he DOES NOT WANT DIALYSIS, will keep in close mind while diuresing patient 5) Cellulitis Cellulitis vs Venous stasis in nature Prior wound cultures growing Pseudomonas, will continue Zosyn for coverage at this time 6) Groin Yeast/Intertrigo Improvement following treatment 7) CAD Involving bypass graft in 2013 No symptoms suggestive of progression of disease 8) Hypothyroidism TSH 9 with T4 1.22 Continue Levothyroxine 75mcg daily Can repeat TSH 1 month after discharge when patient not in acute exacerbation 9) DM2 Patient with Free Gaetano and Insulin pump at home Lantus and Novolog inpatient Dispo: Med/Surg Tele FEN: HH Diet, Low Sodium 1500mg, DM2, Fluid restriction 1200ml DVT: Recommend Eliquis, but patient refusing and prefers to use Bilberry for his anticoagulation. Code: DNR/DNI with no resus Current Inpatient Medications Acetaminophen (Acetaminophen 325 Mg Tab) 650 mg PO Q4H PRN PRN Reason: Pain or Fever Stop: 08/25/20 19:26 Al Hydrox/Mg Hydrox/Simethicone (Aluminum/Magnesium Susp 30 Ml Udc) 15 ml PO Q4H PRN PRN Reason: Dyspepsia Stop: 08/25/20 19:26 Apixaban (Apixaban 5 Mg Tablet) 5 mg PO BID [facility] Stop: 08/25/20 20:59 Last Admin: 07/29/20 07:19 Dose: Not Given Documented by: Calcitriol (Calcitriol 0.25 Mcg Capsule) 0.5 mcg PO MoWeFr@0900 ADELFO Stop: 08/27/20 08:59 Last Admin: 07/28/20 07:32 Dose: 0.5 mcg Documented by: Dextrose (Dextrose 50% 50 Ml Syringe) 25 - 50 ml IV UD PRN; Protocol PRN Reason: Hypoglycemia Protocol Stop: 08/25/20 19:26 Diclofenac Sodium (Diclofenac Sod 1% Gel 100 Gm Tube) 4 gm EXT QID ADELFO Stop: 08/26/20 08:59 Last Admin: 07/29/20 07:20 Dose: 4 gm Documented by: Glucagon (Glucagon For Inj 1 Mg Vial) 1 mg SQ UD PRN; Protocol PRN Reason: Hypoglycemia Protocol Stop: 08/25/20 19:26 Glucose (Glucose 10 Tabs/Tube) 4 - 8 tabs PO UD PRN; Protocol PRN Reason: Hypoglycemia Protocol Stop: 08/25/20 19:26 Glucose (Glucose 40% Gel 15 Gm Tube) 15 - 30 gm PO UD PRN; Protocol PRN Reason: Hypoglycemia Protocol Stop: 08/25/20 19:26 Bumetanide 2 mg/ Syringe 8 mls @ 4 mls/min IV BID@0900,1700 ADELFO Stop: 08/25/20 19:26 Last Admin: 07/29/20 07:18 Dose: 4 mls/min Documented by: Piperacillin Sod/Tazobactam (Sod 4.5 gm/ Dextrose) 120 mls @ 30 mls/hr IV Q8H [facility]; Protocol Stop: 08/02/20 19:59 Last Infusion: 07/29/20 09:04 Dose: Infused Documented by: Insulin Aspart (Insulin Aspart 100 Units/Ml 3 Ml Pen) 0 units SC ACHS [facility] Stop: 08/25/20 20:59 Last Admin: 07/29/20 08:28 Dose: 8 units Documented by: Insulin Glargine (Insulin Glargine Solostar 100 Units/Ml 3 Ml Pen) 11 units SC BID [facility] Stop: 08/27/20 20:59 Last Admin: 07/29/20 08:29 Dose: 11 units Documented by: Levothyroxine Sodium (Levothyroxine Sodium 75 Mcg Tablet) 75 mcg PO DAILYBB [facility] Stop: 08/26/20 06:29 Last Admin: 07/29/20 06:08 Dose: 75 mcg Documented by: Lidocaine (Lidocaine 5% 1 Patch) 1 patch TD HS [facility] Stop: 08/26/20 20:59 Last Admin: 07/28/20 20:26 Dose: Not Given Documented by: Melatonin (Melatonin 3 Mg Tab) 3 mg PO HS PRN PRN Reason: Sleep Stop: 08/26/20 01:33 Last Admin: 07/28/20 00:15 Dose: 3 mg Documented by: Miconazole Nitrate (Miconazole Nitrate 2% Cr 30 Gm Tube) 1 appln EXT BID [facility] Stop: 08/04/20 11:14 Last Admin: 07/29/20 07:19 Dose: 1 appln Documented by: Miscellaneous (Carbohydrates For Hypoglycemia ) 15 - 30 gm PO UD PRN PRN Reason: Hypoglycemia Protocol Stop: 08/25/20 19:26 Miscellaneous (Remove Lidoderm Patch) 1 ea N/A QAM [facility] Stop: 08/27/20 08:59 Last Admin: 07/29/20 07:20 Dose: 1 ea Documented by: Miscellaneous Information (Piperacill/Tazobac Consult Active) 1 ea N/A UD PRN PRN Reason: Consult Stop: 08/25/20 12:08 Ondansetron HCl (Ondansetron Inj 2 Mg/Ml 2 Ml Vial) 4 mg IV Q6H PRN PRN Reason: Nausea Stop: 08/25/20 19:26 Potassium Chloride (Potassium Chloride 20 Meq Tabcr) 20 meq PO 1200 ONE Stop: 07/29/20 12:01 Trolamine Salicylate (Trolamine Salicylate 10% Crm 255 Appln/85 Gm Tube) 1 appln EXT TID PRN PRN Reason: Pain Stop: 08/26/20 05:18 Last Admin: 07/28/20 23:16 Dose: 1 appln Documented by: Supervising Attestation I personally examined the patient and verified all elizabeth points of history and exam, discussed case, and agree with decision making with Sneha Brian MS2. legs feeling better. ongoing discussions on goals w diuresis/swelling/CrCl. admitted to oven builder more sodium. discussed importance of restriction vitals noted nad heent nc at mmm breathing unlabored no accessory muscles ongoing diffuse edema w venous stasis changes and blistering but continues to show improvmeent volume overload - appearing to be mostly R sided/venous stasis, probably w a degree of chronic combined systolic and diastolic CHF - but with not a lot of pulm edema or dyspnea compared to his peripheral edema, i suspect the situation is venous stasis related far greater than failure. CHF component appears to have resolved. R sided fluid sitaution better than expected would be but with significant rise in Cr. fortunately while CR initially eri a lot, has somewhat leveled off today -continue to follow. emphasize low Na venous stasis ulcers w pseudomonal overgrowth - wound care, zosyn, improving otherwise as above Subjective Mr. Hernandes was seen and examined in his hospital bed this morning. Reports better sleep and reduced swelling in his legs. Intends on having bring in bilberry for blood thinner regimen. Reports reduced swelling in the genital area and improved fungal infection. Review of Systems Review of Systems: Const: No fever, chills, ns. Cardi: No chest pain. Abd: No abd pain : Reduced genital swelling. Physical Exam Physical Exam: General appearance: Pt conversant in no acute distress. Cardio: Irregularly irregular with no RMG appreciated on auscultation. Extremities: Resp: Symmetric chest rise and fall, CTA bilaterally. : Genital swelling reduced. Results & Data ([facility]) Vital Signs (Past 12 Hours) Vital Signs Temp Pulse Resp BP BP Pulse Ox 07/29/20 08:00 36.5 C 60 20 170/71 H 188/91 H 91 07/29/20 04:15 36.7 C 79 18 162/72 H 96 07/28/20 23:41 36.4 C L 46 L 20 141/69 H 91
--- NOTE | 2020-07-29 11:10 | Electrocardiogram Report ---
Test Reason : Blood Pressure : / mmHG Vent. Rate : 050 BPM Atrial Rate : 083 BPM P-R Int : 000 ms QRS Dur : 166 ms QT Int : 512 ms P-R-T Axes : 000 -88 096 degrees QTc Int : 466 ms Atrial fibrillation with slow ventricular response Left axis deviation Right bundle branch block Septal infarct , age undetermined Abnormal ECG When compared with ECG of 26-JUL-2020 12:04, No significant change Confirmed by Wu Sims ([id number]) on 07/29/2020 11:10:26 AM Referred By: Neeta Dang Confirmed By:Wu Sims
[2020-07-29] MEDS ORDERED: POTASSIUM CHLORIDE CRTAB 20 MEQ TABCR PO ONE (12:00)
--- NOTE | 2020-07-29 18:53 | Billing Data ---
Date of Service July 29, 2020 Coding Level of Care Code 68398 Subseq Hosp Care Lvl 3
[2020-07-29] MEDS: LIDOCAINE 5% 1 PATCH TD SCH (20:36)
[2020-07-30] MEDS: PIPERACILLIN/TAZOBACTAM 4.5 GM in DEXTROSE 5% 100 ML IV SCH ×2 (03:11→11:05)
[2020-07-30] MEDS: LEVOTHYROXINE SODIUM 75 MCG TABLET PO SCH (05:58)
--- NOTE | 2020-07-30 06:27 | Hospitalist Progress Note ---
Date of Service July 30, 2020 Assessment & Plan (1) Venous ulcers of both lower extremities: Patient is a 79 year old male with PMHx CHF, Venous stasis w/ ulcers, CKD, CAD, Hypothyroidism, and DM2 who presented initially with worsening edema and SOB over the course of several months. Patient had noted he had stopped taking his diuretic having felt that it was not helping his symptoms and was referred to the hospital after a wound check in regards to his venous stasis ulcers which had grown pseudomonas in the past. Acute on Chronic CHF -Patient with worsening SOB, Edema, elevated BNP, CXR showing Mild Pulmonary Edema, and corroborating history of discontinuing diuretic use -Aggressive diuresis with Bumex 2mg BID -TTE from 06/30 with EF 40-45% with mild to moderately reduced LVSF -At this point in time, patient appearing relatively diuresed and dry, but due to significant edema in LE and inability apply compression as such will continue with Bumex per Nephrology's recommendation. -Will monitor kidney function closely as patient is adamant he would not want hemodialysis. -Strict I/O's -Fluid restriction 1200ml and Salt restriction 1500mg daily Venous Stasis -Wound consulted and following -With pseudomonal overgrowth, continuing Zosyn -Patient would likely benefit with compression, though difficult with acute swelling -Will continue with diuresis as above -Will also place patient in Trendelenburg position for 30 minutes 3x/day to encourage elevation Hypokalemia -K at 3.3 this AM -Repleted with PO Atrial Fibrillation, new onset -No prior history per patient -Rate controlled without need for rate controlling agents -Cardiology consulted -[id number] with 10.8% risk of stroke per year -Discussed with patient about importance of anticoagulation for prevention of stroke -Recommend NOAC (Eliquis), but patient states he would prefer something more herbal such as Bilberry -Discussed in length about how we cannot make that recommendation to take Bilber ry and patient understanding, though would still like to defer NOAC Acute on Chronic Kidney Injury -Base Cr ~1.8 -Creatinine Stable around 2.3 with diuresis. -Nephrology consulted -Will continue aggressive diuresis with expectations of some CHERELLE, will monitor closely -Patient noting he DOES NOT WANT DIALYSIS, will keep in close mind while diuresing patient Cellulitis -?Cellulitis vs Venous stasis in nature -Prior wound cultures growing Pseudomonas, will continue Zosyn for coverage at this time Groin Yeast/Intertrigo -Continue Miconazole 2% BID -Patient noting improvement of itching CAD -Involving bypass graft in 2013 -No symptoms suggestive of progression of disease -Recommend ASA and Statin, though patient not agreeable to take. Hypothyroidism -TSH 9 with T4 1.22 -Continue Levothyroxine 75mcg daily -Can repeat TSH 1 month after discharge when patient not in acute exacerbation DM2 -Patient with Free Gaetano and Insulin pump at home -Lantus and Novolog inpatient Discharge Goals -PT consulted Dispo: Med/Surg Tele FEN: HH Diet, Low Sodium 1500mg, DM2, Fluid restriction 1200ml DVT: Recommend Eliquis, but patient refusing and prefers to use Bilberry for his anticoagulation. Code: DNR/DNI (2) Congestive heart failure: (3) Atrial fibrillation: (4) Acute kidney injury superimposed on chronic kidney disease: Admission and Anticipated Discharge Date Admission Date: July 26, 2020 Subjective Patient evaluated at the bedside this AM. Noting that he was feeling better. Adamant that he does not want to take Eliquis and understands the risks. Notes he feels that he's had a good life and if something happens it happens. States that his breathing has improved and he is not having any SOB. Review of Systems Constitutional: no fever and no chills Eyes: no worsening vision Respiratory: no cough, no dyspnea and no dyspnea on exertion Cardiovascular: + edema; no chest pain and no dyspnea on exertion Gastrointestinal: no abdominal pain, no nausea, no vomiting, no constipation and no diarrhea/loose stools Genitourinary: + scrotal swelling Integumentary: + pruritus and + skin swelling Physical Exam Constitutional: well developed, well nourished and + overweight; no acute distress Eyes: PERRL, conjunctivae normal, anicteric sclerae ENMT: external ear and nose normal, oropharynx normal Neck: trachea midline, no thyromegaly Respiratory: normal respiratory effort, lungs clear to auscultation Cardiovascular: Rate/Rhythm: + irregularly irregular Heart Sounds: no murmur Extremities: + edema (+1-2 in LE b/l); no calf tenderness Gastrointestinal (Abdomen): Inspection/Auscultation: abdomen normal to inspection, normal bowel sounds, + abdominal edema and + significant pannus Percussion/Palpation: abdomen nontender Skin: Legs B/L bandaged, venous stasis changes b/l Psychiatric: Orientation: alert and oriented x 3 Results & Data Results & Data ([facility]) Vital Signs (Past 12 Hours) Vital Signs Temp Pulse Pulse Resp BP Pulse Ox 07/30/20 03:29 36.5 C 56 L 18 154/71 H 93 07/29/20 23:55 55 L 07/29/20 23:14 36.4 C L 52 L 18 149/64 H 94 07/29/20 19:25 36.5 C 54 L 20 176/81 H 90 Resident Activity Tracking Resident Involvement: Resident Care Provided Care Provided: Adult Hospital Medicine
[2020-07-30 06:52] LABS: Basophils # (auto) 0.03 K/uL (0-0.2); Basophils % (auto) 0.5 %; Eosinophils # (auto) 0.17 K/uL (0-0.5); Hematocrit (blood only) 39.7 % (42-52); Hemoglobin 12.9 g/dL (14.0-18.0); Immature Granulocytes # (auto) 0.01 K/uL (0.00-0.02); Immature Granulocytes % (auto) 0.2 %; Lymphocytes # (auto) 0.76 K/uL (1.2-3.4); Lymphocytes % (auto) 13.2 %; Mean Corpuscular Hemoglobin 31.9 pg (25-34); Mean Corpuscular Hgb Conc 32.5 g/dL (32-36); Mean Corpuscular Volume 98.3 fL (80-100); Mean Platelet Volume 11.2 fL (7.4-10.4); Monocytes # (auto) 0.66 K/uL (0.11-0.59); Monocytes % (auto) 11.5 %; Neutrophils # (auto) 4.13 K/uL (1.4-6.5); Neutrophils % (auto) 71.6 %; Platelet Count 132 K/uL (130-400); RDW Coefficient of Variation 15.1 % (11.5-14.5); Red Blood Count 4.04 M/uL (4.7-6.1); White Blood Count 5.76 K/uL (4.8-10.8)
[2020-07-30 07:16] LABS: BUN Creatinine Ratio 24.3 (10-20); Calcium 8.8 mg/dl (8.5-10.1); Creatinine Clr Calc Pharmacy 33.3 ml/min; Est GFR (African American) 30.4; Est GFR (Non-African American) 26.2; Potassium 3.3 mmol/L (3.5-5.1)
[2020-07-30] MEDS: INSULIN ASPART 100 UNITS/ML 3 ML PEN SC SCH ×2 (08:07→12:26)
[2020-07-30] MEDS: BUMETANIDE 2 MG in SYRINGE 0 ML IV SCH (08:09)
[2020-07-30] MEDS: MICONAZOLE NITRATE 2% CR 30 GM TUBE EXT SCH (08:10)
[2020-07-30] MEDS: APIXABAN 5 MG TABLET PO SCH (08:12)
[2020-07-30] MEDS: CALCITRIOL 0.25 MCG CAPSULE PO SCH (08:12)
[2020-07-30] MEDS: DICLOFENAC SOD 1% GEL 100 GM TUBE EXT SCH ×2 (08:13→12:27)
[2020-07-30] MEDS ORDERED: POTASSIUM CHLORIDE CRTAB 20 MEQ TABCR PO STA (08:27)
[2020-07-30] MEDS ORDERED: INSULIN GLARGINE SOLOSTAR 100 UNITS/ML 3 ML PEN SC SCH (09:00)
--- NOTE | 2020-07-30 10:37 | Nephrology Progress Note ---
Date of Service July 30, 2020 Assessment & Plan (1) Lower extremity edema: * Cr has risen to 2.4 w/ diuresis but appears to have stabilized * LE and genital edema likely reflective of LVH, elevated R heart pressure and questionable adherence to prescribed diuretic regimen * Recommend 1500 mg/day NaCl restricted diet. Dietitian met w/ patient and provided education. Mr. Hernandes now acknowledges that he had been eating high sodium foods and will change his diet at home (limit rivas, salami) * Continue Bumex 2 mg IV BID - kidney function remains relatively stable. Question results of I&O's and daily weights. Clinically patient's pedal and pretibial edema are improved. He requires continued diuresis to help alleviate genital swelling * Recommend scrotal elevation * Patient indicates that he is agreeable to medical management but does not want dialysis. He is familiar w/ dialysis due to a close friend who did poorly while on HD (2) CKD (chronic kidney disease) stage 3, GFR 30-59 ml/min: * Baseline Cr had been 1.8 * 07/06 renal US: R 12.3cm, L 12.5cm. No hydronephrosis * Urine sediment this admission is acellular. 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 Once rendered euvolemic, may consider low dose TIMO/ARB (4) Ischemic cardiomyopathy: * Recent echocardiogram w/ hypokinesis of LV * Irregular heart rhythm today c/w atrial fibrillation * Cardiology discussing anticoagulation and possible cardioversion w/ patient Admission and Anticipated Discharge Date Admission Date: July 26, 2020 Subjective Mr. Hernandes was seen & examined in his hospital room this morning. He reports brisk UO in response to IV diuretics. I&O were net negative 1250 cc overnight. Weight has been variable. Patient reports that both genital and LE swelling are improved Review of Systems Constitutional: no fever Eyes: no problem reported Ear, Nose, Mouth, Throat: no problem reported Respiratory: no dyspnea Cardiovascular: + edema; no chest pain Gastrointestinal: no abdominal pain, no nausea and no diarrhea/loose stools Genitourinary: + urinary hesitancy; no dysuria and no hematuria Musculoskeletal: no back pain Integumentary: + skin swelling Neurologic: no dizziness and no confusion Physical Exam Constitutional: + ill appearing; not in distress Eyes: PERRL, conjunctivae normal, anicteric sclerae ENMT: external ear and nose normal, oropharynx normal Neck: trachea midline, no thyromegaly Respiratory: normal respiratory effort, lungs clear to auscultation Cardiovascular: Rate/Rhythm: + irregularly irregular Extremities: + edema (LE swelling improved. Now only 1+ pretibial edema) Gastrointestinal (Abdomen): normal bowel sounds, soft, nontender, no hepatosplenomegaly Musculoskeletal: Extremities: no cyanosis Skin: + lesion (bullous lesion dorsum of L foot) Neurologic: awake Genitourinary: 3+ scrotal edema Results & Data ([facility]) Vital Signs (Past 12 Hours) Vital Signs Temp Pulse Pulse Resp BP Pulse Ox 07/30/20 07:40 48 L 07/30/20 07:18 36.6 C 58 L 18 161/75 H 93 07/30/20 03:29 36.5 C 56 L 18 154/71 H 93 07/29/20 23:55 55 L 07/29/20 23:14 36.4 C L 52 L 18 149/64 H 94 Laboratory Tests 07/30/20 07/30/20 06:32 06:32 WBC 5.76 Hgb 12.9 L Hct 39.7 L Plt Count 132 Sodium 143 Potassium 3.3 L Chloride 106 Carbon Dioxide 30 BUN 56 H Creatinine 2.30 H Glucose 195 H PG Care Time/CCT Total # of Minutes Spent Total Time Spent with Patient: Total time spent is greater than 50% in coordination of care (as documented) at patient's floor/unit and/or counseling patient: Coding Level of Care Code 67821 Subseq Hosp Care Lvl 3 Diagnoses Lower extremity edema R60.0 CKD (chronic kidney disease) stage 3, GFR 30-59 ml/min N18.3 LVH (left ventricular hypertrophy) I51.7 Ischemic cardiomyopathy I25.5
--- NOTE | 2020-07-30 12:52 | Cardiology Progress Note ---
Date of Service July 30, 2020 Assessment & Plan (1) Atrial fibrillation: He is in atrial fibrillation with a controlled or slow heart rate. He should be anticoagulated, I discussed this with him on several occasions, including when his was present. He feels that bilberry is a safer and more effective anticoagulant than the ones that we recommend. I told him that I cannot do anything but recommend either warfarin or the newer agents (which I prefer) but he is still considering bilberry. He is willing to look into using Eliquis however which would be my first choice. His atrial fibrillation is controlled without medications so I would avoid medications which affect the AV node since his heart rate is slow even without them. Since his rhythm is quite regular and fairly slow at times I suspect he may have a junctional escape rhythm causing the regularity while he is in atrial fibrillation. We could consider conversion to sinus rhythm, there may be some advantage in doing that with his edema, but I do not know the duration of the atrial fibrillation and I cannot do that unless he takes an anticoagulant for a month before cardioversion. I did review his echocardiogram from June and based on the Doppler signal I do not believe there was any atrial activity even though the rhythm was quite regular. His electrocardiograms and generally telemetry also look like atrial fibrillation. This is consistent with him being in atrial fibrillation for at least the last month, likely longer. If he is willing to take an anticoagulant I would recommend doing that for a month and then converting the rhythm. In the past he had sinus rhythm with marked first-degree AV block (that was last seen in 2017) so conversion may result in second-degree or higher AV block which would potentially be an issue and we may have to consider a pacemaker. I would want him to agree to a pacemaker before we would consider cardioversion, but since he does not seem willing to take anticoagulation I do not know that we are going to be able to consider cardioversion. (2) CAD (coronary artery disease): He has coronary disease and has had bypass surgery in the past, he does not have symptoms to suggest progression of disease. His left ventricular function has not changed and therefore I do not believe we should evaluate him for disease progression. Risk factor modification of course would be in order, that would include platelet inhibitors and statins although he has not been willing to take them. (3) Ischemic cardiomyopathy: He does have an ischemic cardiomyopathy although it has been quite stable for a number of years and it is not severe. This could lead to systolic heart failure although with an ejection fraction in the 40s that normally is not a big factor but he does have severe LVH on top of it. Ideally we would have him on beta-blockade as well as TIMO inhibitors, with his heart rate I do not think we can use beta-blockers, with his kidney function I do not think we can use TIMO inhibitors now, therefore there is not a lot we can do with his left ventricular function with medical therapy. We could try some of the second line drugs but he is disinclined to use conventional medications in any case and I think especially if they are not very effective he would be resistant. Since his ejection fraction has not changed in quite a few years I do not think it is ur gent that we get him on anything immediately. Another potential option is to consider biventricular pacing, he does have a quite wide electrical complex and that may help although his left ventricular function is not in the range where we normally do that. However if we would consider cardioversion from atrial fibrillation and we need to put in a pacemaker (which would be likely) I would strongly consider a biventricular unit. (4) Edema: From his description (I do not have office records to corroborate his description but his agrees) his edema has been getting worse over the last several months and especially over the last several weeks and has not been this severe for the last several years. That raises the possibility that something changed in the last month or 2, perhaps development of atrial fibrillation was what triggered the current worsening of his fluid retention and edema. We do not have records to determine with any precision when the atrial fibrillation might have started although from his echocardiogram I think he was in atrial fibrillation in June. If atrial fibrillation is partially to blame for his worsening edema then conversion to sinus rhythm may help him mobilize fluid and make dealing with the edema easier. We may be limited our ability to eliminate his edema as things stand now because of his kidney disease, although he does seem to be doing well in that regard with just diuresis and he does have other options such as compression stockings and leg elevation. (5) Congestive heart failure: He does not seem to have a lot of left-sided congestive heart failure, he does have some degree of left ventricular dysfunction and probably has some element of systolic heart failure, he also has the likelihood of diastolic dysfunction due to his severe LVH. Either way removing fluid is the ideal approach however we may run into difficulties with kidney function. That did worsen with diuresis but may have stabilized, he does have some edema but has improved. His weight is up today although his intake and output are negative, clinically I suspect he has not gained a lot of weight and that may be an erroneous weight today. I will leave management of his diuresis to the nephrologists. (6) Acute kidney injury superimposed on chronic kidney disease: He has longstanding kidney disease which I suppose is a combination of hypertension and diabetes with a component of cardiorenal syndrome now. That may interfere with our ability to mobilize fluid but I would continue with diuresis if possible. (7) RBBB (right bundle branch block): His electrocardiogram is an atypical type right bundle branch block pattern (an IVCD of the right bundle type) but the QRS duration is very wide, in excess of 160 ms. That is new compared to electrocardiograms years ago. That could lead to dyssynchrony and inefficient contraction which may have also contributed to his edema. This could potentially be improved with biventricular pacing. Admission and Anticipated Discharge Date Admission Date: July 26, 2020 Subjective He seems to be in good spirits today, he is feeling better, has slept better through the night. He feels that his legs are improved. Physical Exam Physical Exam: Constitutional: Alert, cooperative and in no distress. He is overweight. HEENT: Unremarkable Neck: No jugular venous distention, carotid pulses are irregular but otherwise normal and equal bilaterally without bruits. Pulmonary: Clear to auscultation bilaterally. Cardiac: Irregular slow rhythm with no murmur, gallop or rub. Abdomen: Soft, nontender with normal bowel sounds. Extremities: +2 to +3 bilateral pretibial edema. Distal pulses are not palpable. Neurologic: No focal findings. Gait was not tested. Skin: No rash, ecchymoses or petechiae. He does have ulceration of his lower extremities and signs of chronic venous stasis. Results & Data ([facility]) Vital Signs (Past 12 Hours) Vital Signs Temp Pulse Pulse Resp BP Pulse Ox 07/30/20 11:01 36.4 C L 90 18 167/73 H 91 07/30/20 07:40 48 L 07/30/20 07:18 36.6 C 58 L 18 161/75 H 93 07/30/20 03:29 36.5 C 56 L 18 154/71 H 93 Laboratory Results CBC 07/30/20 Range/Units 06:32 WBC 5.76 (4.8-10.8) K/uL RBC 4.04 L (4.7-6.1) M/uL Hgb 12.9 L (14.0-18.0) g/dL Hct 39.7 L (42-52) % Plt Count 132 (130-400) K/uL Neut # (Auto) 4.13 (1.4-6.5) K/uL Lymph # (Auto) 0.76 L (1.2-3.4) K/uL [place] # (Auto) 0.66 H (0.11-0.59) K/uL Eos # (Auto) 0.17 (0-0.5) K/uL Baso # (Auto) 0.03 (0-0.2) K/uL Comprehensive Metabolic Panel 07/30/20 Range/Units 06:32 Sodium 143 (136-145) mmol/L Potassium 3.3 L (3.5-5.1) mmol/L Chloride 106 (98-107) mmol/L Carbon Dioxide 30 (21-32) mmol/L BUN 56 H (7-18) mg/dl Creatinine 2.30 H (0.6-1.4) mg/dl Glucose 195 H (70-99) mg/dl Calcium 8.8 (8.5-10.1) mg/dl Intake and Output 07/29/20 07/30/20 07/30/20 22:59 06:59 14:59 Intake Total 320 / 850 170 / 850 120 / 120 Output Total 1200 / 2100 900 / 2100 Balance -880 / -1250 -730 / -1250 120 / 120 Intake: IV 120 / 360 120 / 360 120 / 120 Zosyn 4.5 gm In D5 100 ml @ 30 120 / 360 120 / 360 120 / 120 mls/hr IV Q8H [facility] Rx#:[id number] Oral 200 / 490 50 / 490 Output: Urine 1200 / 2100 / 2100 Other: Weight 123 kg Weight Measurement Method Built in [facility] Diagnostic Findings Telemetry: Atrial fibrillation with heart rate in the upper 30s at times, generally in the 50s PG Care Time/CCT Total # of Minutes Spent Total Time Spent with Patient: Total time spent is greater than 50% in coordination of care (as documented) at patient's floor/unit and/or counseling patient: Coding Level of Care Code 85536 Subseq Hosp Care Lvl 2 Diagnoses Atrial fibrillation I48.91 CAD (coronary artery disease) I25.10 Ischemic cardiomyopathy I25.5 Edema R60.9 Congestive heart failure I50.9 Acute kidney injury superimposed on chronic kidney disease N17.9; N18.9 RBBB (right bundle branch block) I45.10
--- NOTE | 2020-07-30 15:42 | Discharge Summary ---
Date of Service July 30, 2020 Admission HPI Per Admitting Provider Jeffery Hernandes is a 79 year old male who presents to the ER on the advice of wound care clinic today due to worsening bilateral lower extremity ulcers. Difficult to obtain history from patient but he reports his legs have never been so swollen. This is co-orborated with his . Associated shortness of breath although he finds it difficult to move anywhere with his leg swelling. Large blisters have formed over the last 2 days and subsequently popped. She reports a strong smell comes from the back of his legs. He reports not taking the diuretics as prescribed as he doesn't think it has been helping him and it doesn't make him urinate a lot. He has not taken any doses today. He has a lot of his own ideas about his healthcare and tries to use herbal supplements most of the time. Prior problems with medication non-compliance noted in the chart. When discussing atrial fibrillation and need for anticoagulation he asks me whether he could do the same thing to treat this with higher doses of garlic. He denies any history of atrial fibrillation but does have a history of coronary artery disease with prior bypass surgery. He reports problems with his prostate although denies any lower urinary tract symptoms such as nocturia, urinary frequency, terminal dribbling, difficulty starting or poor stream. He reports using herbal supplements to help with his prostate. He denies any fever or chills. His has noticed significant worsening of swelling with associated erythema although his legs are chronically erythematous. In the ER given prior wound cultures growing pseudomonas he was started on Zosyn for suspected cellulitis and IV Bumex 2mg or volume overload. Admission Exam Per Admitting Provider Constitutional: well developed and + obese; + not well nourished and no acute distress Eyes: + anicteric sclerae; normal pupil size Respiratory: normal respiratory effort Auscultation: + diminished lung sounds (bibasal); no crackles, no rales, no rhonchi and no wheezes Cardiovascular: Rate/Rhythm: + bradycardic and + irregularly irregular Heart Sounds: no murmur Vessels: no JVD (difficult to assess with neck size) Extremities: normal capillary refill, + calf tenderness (b/l) and + edema (3+ up to mid abdomen, scrotal swelling and leg edema, arms spared) Gastrointestinal (Abdomen): Inspection/Auscultation: + abdomen distended Percussion/Palpation: abdomen soft; abdomen nontender, no guarding and abdomen not rigid Skin: Multiple bilateral LE ulcer well described on wound care note earlier today. Erythema from knee to toes b/l, mildly increased brightness around dorsal aspect or left foot and right posterior leg. Chronic venous stasis changes b/l Neurologic: moves all extremities and awake; not confused Psychiatric: A+Ox3, euthymic affect Principal Diagnosis CHF Exacerbation Discharge Exam Constitutional well developed, well nourished and + overweight; no acute distress Eyes PERRL, conjunctivae normal, anicteric sclerae ENMT external ear and nose normal, oropharynx normal Neck trachea midline, no thyromegaly Respiratory normal respiratory effort, lungs clear to auscultation Cardiovascular Rate/Rhythm: + irregularly irregular Heart Sounds: no murmur Extremities: + edema (+1-2 in LE b/l); no calf tenderness Gastrointestinal (Abdomen) Inspection/Auscultation: abdomen normal to inspection, normal bowel sounds, + abdominal edema and + significant pannus Percussion/Palpation: abdomen nontender Psychiatric Orientation: alert and oriented x 3 Discharge Data Allergies Allergy/AdvReac Type Severity Reaction Status Date / Time cephalexin Allergy Intermediate pimple Verified 07/26/20 13:25 like rash cat dander Allergy Mild NO ALLERGY Verified 07/26/20 13:25 PATIENT PREFERENCE ragweed pollen Allergy Unknown SHORTNESS Verified 07/26/20 13:25 OF BREATH lisinopril AdvReac Mild Cough Verified 07/26/20 13:25 [id number] Reductase AdvReac Mild SEE NOTE Verified 07/26/20 13:25 Inhibitor NO ALLERGY Consultations 07/26/20 15:09 ED Decision to Admit Stat 07/26/20 19:27 Consult Cardiology Routine Consult Nephrology Routine Consult Wound Care Provider Routine Ordered Studies 07/26/20 12:09 US venous doppler LE Stat Hospital Course (1) Venous ulcers of both lower extremities: Patient is a 79 year old male with PMHx CHF, Venous stasis w/ ulcers, CKD, CAD, Hypothyroidism, and DM2 who presented initially with worsening edema and SOB over the course of several months. Patient had noted he had stopped taking his diuretic having felt that it was not helping his symptoms and was referred to the hospital after a wound check in regards to his venous stasis ulcers which had grown pseudomonas in the past. Acute on Chronic CHF -Patient with worsening SOB, Edema, elevated BNP, CXR showing Mild Pulmonary Edema, and corroborating history of discontinuing diuretic use -Aggressive diuresis with Bumex 2mg BID -TTE from 06/30 with EF 40-45% with mild to moderately reduced LVSF -Diuresis was continued until discharge to help promote some reduction in significant LE edema per Nephro's recommendation -Strict I/O's -Fluid restriction 1200ml and Salt restriction 1500mg daily -Patient discharged on Bumex 1mg BID -Recommend BMP in 3-4 days to monitor kidney function and for hypokalemia. Venous Stasis -Wound consulted -With pseudomonal overgrowth, was treated with IV Zosyn -Patient would likely benefit with compression, though difficult with acute swelling. -Diuresed as above -Patient in Trendelenburg position for 30 minutes 3x/day to encourage elevation Hypokalemia -K at 3.3 day of discharge, was repleted with PO Klor-con -Recommend follow up BMP in 3-4 days after discharge Atrial Fibrillation, new onset -No prior history per patient -Rate controlled without need for rate controlling agents -Cardiology consulted -[id number] with 10.8% risk of stroke per year -Discussed with patient about importance of anticoagulation for prevention of stroke -Recommend NOAC (Eliquis), but patient states he would prefer something more herbal such as Bilberry -Discussed in length about how we cannot make that recommendation to take Bilberry and patient understanding, though would still like to defer NOAC Acute on Chronic Kidney Injury -Base Cr ~1.8 -Creatinine Stable around 2.3 with diuresis on day of discharge -Nephrology consulted -Patient noted he would not want dialysis -Recommend follow up BMP in 1 week Cellulitis -?Cellulitis vs Venous stasis in nature -Prior wound cultures growing Pseudomonas, treated with IV Zosyn, though low suspicion for cellulitis. Groin Yeast/Intertrigo -Miconazole 2% BID x 7 days -Script given to patient for Miconazole 2% powder on discharge for use until 08/04/20 CAD -Involving bypass graft in 2012 -No symptoms suggestive of progression of disease -Recommend ASA and Statin, though patient not agreeable to take. Hypothyroidism -TSH 9 with T4 1.22 -Continue Levothyroxine 75mcg daily -Can repeat TSH 1 month after discharge when patient not in acute exacerbation DM2 -Patient with Free Gaetano and Insulin pump at home -Lantus and Novolog inpatient (2) Congestive heart failure: (3) Atrial fibrillation: (4) Acute kidney injury superimposed on chronic kidney disease: Total Time Total Time Spent Total Time Spent (In Minutes): <30 Discharge Plan Discharge Items Patient Disposition: Home - Self-Care Reason For Visit: BI LE CELLULITIS, NEW ONSET OF AFIB, HYPERVOLEMIA Discharge Diagnosis: CHF Exacerbation, Venous Stasis, New Onset Afib Condition on Discharge: Fair Activity: Per Instructions section Non-emergency contact: Primary Care Provider Call non-emergency contact if: you have any medication questions and your symptoms worsen Follow-up/Referrals: Roc Casanova III, MD [Primary Care Provider] - 08/05/20 11:30 am (Your appointment is with the physician patient observation assistant, Alina Galarza. If you need to change this appointment, please call [phone].) Diet: Low Sodium (2gm) Addtl Attending Provider Instructions: Mr. Scanlon, It was our pleasure caring for you at [facility] from 07/26/20 - 07/30/20 for your CHF exacerbation, new onset of atrial fibrillation, and venous stasis ulcers. Please see below for a summary of your care and future instructions. Acute on Chronic CHF -When you arrived there were concerns that you were in an acute worsening of your baseline congestive heart failure due to lack of diuretic use. -You were given a significant amount of IV diuretics while inpatient and much of the fluid in your lungs, legs, and abdomen was removed. -We would recommend that you continue taking a diuretic once you are home, and to also continue a low salt diet. -We also would like you to continue to move around more now that the swelling in your legs has decreased. -Less salt = Less swelling -More Movement = less swelling. -Please pick remover and take your diuretic Bumex as prescribed -Bumex 1mg twice a day by mouth -Please follow up with your PCP in the next 3-4 days -We recommend that you have another Basic Metabolic Profile (BMP) lab completed in the next 3-4 days as well to monitor your kidney function. Venous Stasis -We discussed the importance of your diuretic, movement, and reduction in salt intake in regards to your leg swelling. -With reduced swelling, you'll be able to apply more compression to your legs to help the swelling more. -Please also follow up with your wound clinic within the next week for further management of your leg ulcers. -Please keep your legs elevated above the level of your heart whenever you are laying down to help promote reduction in your leg swelling. Hypokalemia -You had a lower potassium level while in the hospital due to the extra diuretic we were giving you -You were given Potassium by mouth to help replete this -Please follow up with your PCP and have a BMP completed in the next 3-4 days to monitor your potassium. Atrial Fibrillation, new onset -As noted by you, Atrial Fibrillation had never been an issue for you in the past. -Your rate is slow and as such does not require a rate controlling agent -We do however recommend that you be on a blood thinner -We had a lot of discussions in regards to taking Eliquis as your risk of stroke is 10.8% yearly. -You noted that you would not want to take Eliquis and would prefer to take Bilberry for your anticoagulation instead. -We discussed that we are unable to recommend Bilberry in place of a NOAC such as Eliquis for your anticoagulation and you noted that you understood the risks involved in not taking a blood thinner such as stroke. Acute on Chronic Kidney Injury -Base Cr ~1.8 -You had elevations of your Creatinine due to the diuretics, which we expected. -We suspect further improvement of these as once home you will be on a lessened dose. -Please have a BMP completed in the next 3-4 days to monitor your kidney function. Cellulitis -?Cellulitis vs Venous stasis in nature -Prior wound cultures growing Pseudomonas, we gave you IV Zosyn (antibiotic) to cover for this while you were inpatient. -We have lower suspcion that this was actually cellulitis, however, and feel it may be more your venous stasis. -Please follow up with your wound clinic in the next 1 week for monitoring. Groin Yeast/Intertrigo -Continue Miconazole 2% BID -This was changed to a powder to help with the itching and to dry up the groin area. -You can stop using this after 08/04/20 Hypothyroidism -TSH 9 with T4 1.22 -Continue Levothyroxine 75mcg daily -Can repeat TSH 1 month after discharge when patient not in acute exacerbation DM2 -Continue use of your Insulin pump once home -Please follow up with your PCP in regards to proper use and monitoring of your diabetes. Please continue your remaining home medications as prescribed. Please follow up with your PCP in the next 3-4 days for a hospital transition visit and for lab work. Pending Studies at Discharge: No Stand-Alone Forms: [facility] CHF Dc Instructions, [facility], Smoking Cessation Medications and DC Order Prescriptions: New bumetanide 1 mg tablet 1 mg PO BID 30 Days Qty: 60 RF: 0 miconazole nitrate 2 % powder 1 applic topical BID Qty: 85 RF: 2 Continued levothyroxine [Synthroid] 75 mcg tablet 75 mcg PO DAILY Qty: 90 RF: 3 mupirocin 2 % ointment 1 appln TOP BID Qty: 22 RF: 4 gentamicin 0.1 % ointment 1 applic topical DAILY 14 Days Qty: 30 RF: 1 insulin aspart U-100 [Novolog U-100 Insulin aspart] 100 unit/mL solution 50 unit subcut DAILY RF: 0 calcitriol 0.5 mcg capsule 0.5 mcg PO UD Qty: 45 RF: 3 milk thistle 500 mg capsule 1,000 mg PO DAILY RF: 0 vitamins A,C,B-zalc-ylqiin 1 tab PO BID RF: 0 Marshmallow Root See Rx Instructions PO BID RF: 0 Lactobac #2-Bifido #1-S. therm 0 mg PO DAILY RF: 0 simethicone [Gas-X Extra Strength] 125 mg capsule 125 mg PO DAILY PRN (Reason: Gastric Reflux) RF: 0 olive leaf extract 0 mg PO DAILY RF: 0 Super K Complex 0 mg PO DAILY RF: 0 bilberry 100 mg Capsule 100 mg PO DAILY RF: 0 Urinozinc Prostate Formula 100 mg Tablet 100 mg PO DAILY RF: 0 garlic 1,000 mg Capsule 5,000 mg PO DAILY RF: 0 acetylcarnitine 1 gram /scoop Powder 1 g PO DAILY RF: 0 Discontinued bumetanide 1 mg tablet 2 mg PO BID Qty: 120 RF: 3 Discharge Orders: Discharge Order (Routine); Ordered 07/30/20 Ordered By: Néstor Guardado Admission Data Admit Date/Time: 07/26/20 16:54 Attending Provider: Kalen Luevano Admit Provider: Luis Alfredo Baker Primary Care Provider: Roc Casanova III Other Providers: Luis Alfredo Baker ; Kishor Leigh ; Zeke Rosario ; Timothy Allen Other Interventions: Discharge Summary Assessment (RN) Last Done: 07/30/20 16:22 Supervising Physician Co-Signing Physician Notes I personally examined the patient and verified all elizabeth points of history and exam, discussed case, and agree with decision making with Dr Guardado. feeling better did well enough w PT to be able to go home wants to go home. outlined plan extensively and need for follow through, follow up, lab monitoring, adherence misha to lifestyle vitals noted nad heent nc at mmm breathing unlabored no accessory muscles ongoing diffuse edema w venous stasis changes and blistering but continues to be better than before. volume overload - appearing to be mostly R sided/venous stasis, probably w a degree of chronic combined systolic and diastolic CHF - but with not a lot of pulm edema or dyspnea compared to his peripheral edema, i suspect the situation is venous stasis related far greater than failure. CHF component appears to have resolved. R sided fluid sitaution better than expected would be but with significant rise in Cr however this has now stabilized. stable for home, PO bumex, BMP early next week then probably weekly for a while. clinical f/u for legs next week as well. wound clinic as well. importance of all of this imparted to pt. also discussed extensively importance of low Na and movement as much as possible venous stasis ulcers w pseudomonal overgrowth - was on zosyn several days. does not appear cellulitic. appears safe for home w outpt wound f/u. the need for this was imparted to pt as well otherwise as above Resident Activity Tracking Resident Involvement: Resident Care Provided Care Provided: Adult Hospital Medicine
--- NOTE | 2020-07-30 17:50 | Billing Data ---
Date of Service July 30, 2020 Coding Level of Care Code D/C Day Management <30 mins
--- NOTE | 2020-08-13 15:00 | Coding Query ---
CONGESTIVE HEART FAILURE To Promote full compliance with coding requirements relating to patient care, physician participation is requested in all cases of glass grinder uncertainty. Please assist us with the following questions. A diagnosis of Congestive Heart Failure is documented in the patient's medical record. To accurately code this diagnosis and to compare patient severity, we ask that you specify the type of heart failure by placing an X within the parenthesis (x). SYSTOLIC HEART FAILURE ( ) Acute ( ) Chronic ( ) Acute on Chronic ( ) Rheumatic ( ) Unknown DIASTOLIC HEART FAILURE ( ) Acute ( ) Chronic ( ) Acute on Chronic ( ) Rheumatic ( ) Unknown COMBINED SYSTOLIC AND DIASTOLIC HEART FAILURE ( ) Acute (x ) Chronic (subacute on chronic) ( ) Acute on Chronic ( ) Rheumatic ( ) Unknown Was the CHF Present On Admission? Please check the appropriate box: (x ) Present on Admission ( ) Not Present On Admission ( ) Clinically undetermined Thank you Brendan BELL
== END 2020-07-30 17:23 | disposition home or self-care (01) | DRG 292 ==
LOC: ED 11:49 → 2N 16:54 → SUATTDRO 16:54 → 2N 18:27

== ENCOUNTER 2021-06-20 16:11 | Observation (INO) ==
[2021-06-20 20:21] LABS: Basophils # (auto) 0.01 K/uL (0-0.2); Basophils % (auto) 0.2 %; Eosinophils # (auto) 0.09 K/uL (0-0.5); Eosinophils % (auto) 1.5 %; Hematocrit (blood only) 40.7 % (42-52); Hemoglobin 13.8 g/dL (14.0-18.0); Immature Granulocytes # (auto) 0.02 K/uL (0.00-0.02); Immature Granulocytes % (auto) 0.3 %; Lymphocytes # (auto) 0.74 K/uL (1.2-3.4); Lymphocytes % (auto) 12.2 %; Mean Corpuscular Hemoglobin 32.5 pg (25-34); Mean Corpuscular Hgb Conc 33.9 g/dL (32-36); Mean Corpuscular Volume 95.8 fL (80-100); Monocytes # (auto) 0.87 K/uL (0.11-0.59); Monocytes % (auto) 14.3 %; Neutrophils # (auto) 4.35 K/uL (1.4-6.5); Neutrophils % (auto) 71.5 %; Platelet Count 159 K/uL (130-400); RDW Coefficient of Variation 14.4 % (11.5-14.5); RDW Standard Deviation 50.3 fL (36.4-46.3); Red Blood Count 4.25 M/uL (4.7-6.1); White Blood Count 6.08 K/uL (4.8-10.8)
[2021-06-20 20:31] LABS: Appearance Urine Clear (Clear); Bilirubin Urine Negative (Negative); Blood Urine Negative (Negative); Color Urine Yellow; Glucose Urine UA Negative (Negative); Ketones Urine Negative (Negative); Leukocyte Esterase Urine Negative (Negative); Nitrite Urine Negative (Negative); Protein Urine Negative (Negative); Specific Gravity Urine 1.007 (1.000-1.030); Urobilinogen Urine Negative (Negative)
[2021-06-20 20:39] LABS: Alanine Aminotransferase 21 U/L (12-78); Aspartate Aminotransferase 19 U/L (15-37); BUN Creatinine Ratio 25.7 (10-20); Blood Urea Nitrogen 41 mg/dl (7-18); Calcium 9.2 mg/dl (8.5-10.1); Carbon Dioxide 26 mmol/L (21-32); Chloride 108 mmol/L (98-107); Est GFR (African American) 47.5 ml/min; Glucose 151 mg/dl (70-99); Potassium 4.1 mmol/L (3.5-5.1); Sodium 142 mmol/L (136-145)
[2021-06-20 20:40] LABS: Partial Thromboplastin Ratio 1.1; Prothrombin Time 10.6 Seconds (9.0-12.0)
[2021-06-20 20:43] LABS: Albumin Globulin Ratio 0.6 (0.9-2); Alkaline Phosphatase 201 U/L (45-117); Bilirubin,Total 1.3 mg/dl (0.2-1); Globulin 4.9 gm/dl (2.5-4.0); Total Protein 7.9 gm/dl (6.4-8.2); Troponin I < 0.015 ng/ml (0-0.045)
[2021-06-20] MEDS ORDERED: DAPTOmycin 400 MG in SYRINGE 0 ML IV ONE (22:44)
[2021-06-20] MEDS ORDERED: PIPERACILLIN/TAZOBACTAM 4.5 GM/120 ML BAG IV ONE (22:44)
[2021-06-20] MEDS ORDERED: PIPERACILL/TAZOBAC CONSULT ACTIVE PRN (22:44)
--- NOTE | 2021-06-20 22:53 | Emergency Department Note ---
Impression & Plan Cellulitis, Pedal edema, Failure of outpatient treatment, Leg ulcer ED Provider Note NAME: MARY BETH HERMAN AGE: 80 SEX: M : 1940 ARRIVES VIA: Walk-In INFORMANT: [Patient][family] ED PROVIDER(S): [Lyndon Cobb MD] CHIEF COMPLAINT: Infection HISTORY OF PRESENT ILLNESS: The patient is a 80-year-old male with a history of leg edema. He is followed by the wound center. He sees them twice a week. Last week, his legs looked a bit worse. Over the weekend, his legs seemed to worsen and then today, at the wound center, his legs were felt to be severely infected. He was sent to the ED for hospitalization. He has failed outpatient treatment. The patient complains of some chills, no fever. There has been some drainage from the legs on his bandages. There has been some clear liquid and some bloody drainage. No cough or congestion, no vomiting or diarrhea, no abdominal pain. He does not believe that he is currently on an antibiotic. REVIEW OF SYSTEMS: See HPI for pertinent positives and negatives. A total of ten systems were reviewed and were otherwise negative. PMHx/PSHx: See Below SOCIAL HISTORY: See Below. PHYSICAL EXAM: GENERAL: Patient is in no acute distress. HEENT: No acute trauma, normocephalic atraumatic, mucous membranes moist, no nasal congestion, no scleral icterus. NECK: No stridor, no adenopathy, no meningismus, trachea is midline. LUNGS: Clear to auscultation bilaterally when listening anterior, no wheeze, no rhonchi, breath sounds equal. HEART: Subtle systolic murmur, irregular rhythm, normal rate. ABDOMEN: Soft, nontender, bowel sounds positive, no hernias, no peritonitis. EXTREMITIES: No cyanosis. Marked bilateral pedal edema with bilateral erythema and warmth to the lower extremities from the knees to the feet. The left leg seems slightly worse. Patient does have some open lesions where there has been some skin breakdown to both the lower extremities. NEUROLOGIC: Oriented x 3, no acute motor or sensory deficits, no focal weakness. SKIN: No jaundice, no diaphoresis. DIFFERENTIAL DIAGNOSIS: Sepsis, UTI, pneumonia, metabolic abnormality, electrolyte abnormalities, ca rdiac sources, cellulitis, bacteremia, intracerebral event, toxicologic etiology, neurologic event, as well as other pathologies. EMERGENCY DEPARTMENT COURSE/PROCEDURES: ECG: Indication was possible sepsis. ECG shows what appears to be atrial fibrillation with a PVC. The rate is 61. There is a right bundle branch block. There is no ST elevation. QTc is 473. Compared to an ECG from 29 July 2020, I see no significant change. Continuous Cardiac Monitoring: An order was placed for continuous cardiac monitoring. The monitor shows a rate of 60 with atrial fibrillation. MEDICAL DECISION MAKING: There is no leukocytosis or worrisome anemia. There is a normal platelet count. No coagulopathy. There was a slight elevation to the creatinine but this was found to be baseline. No significant electrolyte abnormality in need of emergent correction. Lactic acid level was not elevated making severe sepsis less likely. There were some subtle liver enzyme elevations. ECG showed what appears to be atrial fibrillation, no acute ischemia. Cardiac enzyme testing x1 was not consistent with acute cardiac injury. Urinalysis did not show evidence for infection. Covid testing returned negative. On exam, the patient had a bilateral lower extremity cellulitis with some skin breakdown/ulcers to both legs. He was not toxic, he was not febrile. The patient was in need of a hospital stay. He had been sent to our facility by wound management. The patient's legs had worsened over the weekend. The patient was given IV Zosyn and IV daptomycin. I spoke to the patient about the need for a hospital stay, case management was consulted. I did speak with the on-call hospitalist. Past Med/Surg History Medical History Acute kidney injury BPH (benign prostatic hyperplasia) CAD (coronary artery disease) Cardiac murmur Cataract Chronic diastolic (congestive) heart failure Chronic venous insufficiency Chronic venous stasis CKD (chronic kidney disease) Diabetes mellitus, type 2 IDDM Diabetic foot ulcer associated with type 2 diabetes mellitus Diabetic nephropathy Diabetic retinopathy Dysphagia Esophageal dysmotility History of epistaxis History of gastric ulcer History of GI bleed History of sleep apnea Hypercholesterolemia Hypertension Insulin pump in place Ischemic cardiomyopathy LVH (left ventricular hypertrophy) Lymphedema Microalbuminuria Myocardial infarction 2011 Neuropathy Protein in urine Secondary hyperparathyroidism of renal origin Swallowing dysfunction Trigeminal neuralgia of right side of face Uncontrolled type 2 diabetes mellitus with insulin therapy Vitamin D deficiency Surgical History History of appendectomy History of cardiac catheterization 2011 - [place] --> CABG History of colonoscopy (01/23/07) Dr. Gore, sigmoid diverticulosis, otherwise normal, recheck recommended 10 years History of coronary artery bypass graft 3 VESSELS - 2011 - follows w/ Dr. Calderon (reports last visit 6-7 years ago) History of esophagogastroduodenoscopy (EGD) History of left cataract surgery History of nasal cauterization History of tonsillectomy Family History Mother Family history of diabetes mellitus Ulcerative colitis Uncle Family history of diabetes mellitus Aunt Family history of diabetes mellitus Unknown Hypertension Other Heart disease History of tooth extraction No family history of adverse response to anesthesia No family history of bleeding disorder Stroke Denies family history of Ovarian cancer Prostate cancer Coronary heart disease Breast cancer Scrotal edema Colorectal cancer Social History Smoking Status: Never smoker Second Hand Exposure: Yes; Hx Alcohol Use: Yes Alcohol type: beer and wine Hx Substance Use: No Preferred Language: Nepalese Communication Ability: Effective Visual Impairment: No Limitations Hearing Ability: Normal Language Interpreter Required: No Beliefs That Will Affect Care: Anabaptist Anabaptist Beliefs: Hinduism marital status: Current Living Situation: Spouse current occupational status: retired Feels Safe at Home: Yes Childhood Exposure to Second-Hand Smoke: No caffeine: Yes during the past year weight has: remained stable Dental Care, Regularly: Yes Seatbelt Use: never Sunscreen Use: No Assistive Devices: Cane and Walker Allergies Allergies Allergy/AdvReac Type Severity Reaction Status Date / Time cephalexin Allergy Intermediate pimple Verified 06/20/21 22:45 like rash cat dander Allergy Mild NO ALLERGY Verified 06/20/21 22:45 PATIENT PREFERENCE ragweed pollen Allergy Unknown SHORTNESS Verified 06/20/21 22:45 OF BREATH lisinopril AdvReac Mild Cough Verified 06/20/21 22:45 Wnnstui-Boo-Ajq Reductase AdvReac Mild SEE NOTE Verified 06/20/21 22:45 Inhibitor NO ALLERGY Home Meds Home Medications Medication Instructions Recorded Confirmed oawixelvw-iny-lvgshs complex 100 mg PO DAILY 10/23/19 06/20/21 #[id number] 100 mg tablet (Urinozinc Prostate Formula Plus) insulin aspart U-100 100 unit/mL 0 unit CONTINUOUS SUBCUTANEOUS 02/13/20 06/20/21 subcutaneous solution (Novolog INFUSION DAILY U-100 Insulin aspart) Lactobac #2-Bifido #1-S. therm 0 mg PO DAILY 06/16/20 06/20/21 [High Potency Probiotic] Rossy Root See Rx Instructions PO BID 06/16/20 06/20/21 milk thistle 500 mg capsule 1,000 mg PO DAILY cap 06/16/20 06/20/21 simethicone 125 mg capsule (Gas-X 125 mg PO DAILY PRN 06/16/20 06/20/21 Extra Strength) vitamins A,C,Y-jntj-xwrbax 1 tab PO BID 06/16/20 06/20/21 [PreserVision AREDS] Super K Complex 0 mg PO DAILY 06/30/20 06/20/21 acetylcarnitine 1 g PO DAILY 07/26/20 06/20/21 garlic 1,000 mg capsule 5,000 mg PO DAILY 07/26/20 06/20/21 bilberry 100 mg capsule 100 mg PO DAILY PRN 09/28/20 06/20/21 olive leaf extract See Rx Instructions PO DAILY PRN 09/28/20 06/20/21 calcitriol 0.5 mcg capsule 0.5 mcg PO [id number] 06/20/21 06/20/21 Previous Rx's Medication Instructions Recorded mupirocin 2 % topical ointment 1 appln TOP BID #22 gm 03/19/20 miconazole nitrate 2 % topical 1 applic TOPICAL BID #85 g 07/30/20 powder levothyroxine 88 mcg tablet 88 mcg PO DAILY 90 Days #90 tab 09/14/20 FreeStyle Gaetano 14 Day Sensor #2 ea NS 06/20/21 (flash glucose sensor) bumetanide 2 mg tablet 2 mg PO DAILY #30 tab 06/20/21 doxycycline hyclate 100 mg tablet 100 mg PO bid #28 tab 06/20/21 Results & Data (ED) Vital Signs Vital Signs - 24 hr 06/20/21 16:25 06/20/21 23:00 06/20/21 23:31 Temperature 36.5 C Temperature Source Temporal Artery Scan Pulse Rate 58 L 64 61 Respiratory Rate 18 22 24 Respiratory Effort / Characteristics Non-Labored Respiratory Depth Normal Blood Pressure 170/82 H 153/70 H 169/73 H Blood Pressure Mean 111 97 105 Pulse Oximetry 95 94 94 Oxygen Delivery Method Room Air Sepsis Recent Fever Within 48 Hours No Sepsis New/Unexplained Change in Mental Status No Sepsis Action Taken by Nursing No Action Required Home Medications Current Medication List: was personally reviewed by me Laboratory Data Attestation: I reviewed the patient's lab results. Result diagrams: 06/21/21 07:14 06/21/21 07:14 Lab Results 06/20/21 06/20/21 06/20/21 Range/Units 20:00 20:00 20:00 WBC 6.08 (4.8-10.8) K/uL RBC 4.25 L (4.7-6.1) M/uL Hgb 13.8 L (14.0-18.0) g/dL Hct 40.7 L (42-52) % MCV 95.8 (80-100) fL MCH 32.5 (25-34) pg MCHC 33.9 (32-36) g/dL RDW Std Deviation 50.3 H (36.4-46.3) fL RDW Coeff of Malcolm 14.4 (11.5-14.5) % Plt Count 159 (130-400) K/uL MPV 11.0 H (7.4-10.4) fL Immature Gran % (Auto) 0.3 % Neut % (Auto) 71.5 % Lymph % (Auto) 12.2 % [place] % (Auto) 14.3 % Eos % (Auto) 1.5 % Baso % (Auto) 0.2 % Neut # (Auto) 4.35 (1.4-6.5) K/uL Lymph # (Auto) 0.74 L (1.2-3.4) K/uL [place] # (Auto) 0.87 H (0.11-0.59) K/uL Eos # (Auto) 0.09 (0-0.5) K/uL Baso # (Auto) 0.01 (0-0.2) K/uL Immature Gran # (Auto) 0.02 (0.00-0.02) K/uL PT 10.6 (9.0-12.0) Seconds INR 1.0 (0.9-1.1) APTT 30.0 (21.0-31.0) Seconds PTT Ratio 1.1 Sodium 142 (136-145) mmol/L Potassium 4.1 (3.5-5.1) mmol/L Chloride 108 H (98-107) mmol/L Carbon Dioxide 26 (21-32) mmol/L Anion Gap 8.0 (3-11) BUN 41 H (7-18) mg/dl Creatinine 1.58 H (0.6-1.4) mg/dl Est Cr Clr Drug Dosing Not Reportable Est GFR ( Amer) 47.5 ml/min Est GFR (Non-Af Amer) 41.0 ml/min BUN/Creatinine Ratio 25.7 H (10-20) Glucose 151 H (70-99) mg/dl Lactate (0.4-2.0) mmol/L Calcium 9.2 (8.5-10.1) mg/dl Magnesium 2.0 (1.8-2.4) mg/dl Total Bilirubin 1.3 H (0.2-1) mg/dl AST 19 (15-37) U/L ALT 21 (12-78) U/L Alkaline Phosphatase 201 H (45-117) U/L Troponin I < 0.015 (0-0.045) ng/ml Total Protein 7.9 (6.4-8.2) gm/dl Albumin 3.0 L (3.4-5.0) gm/dl Globulin 4.9 H (2.5-4.0) gm/dl Albumin/Globulin Ratio 0.6 L (0.9-2) Urine Color Urine Appearance (Clear) Urine pH (4.5-7.5) Ur Specific [place] (1.000-1.030) Urine Protein (Negative) Urine Glucose (UA) (Negative) Urine Ketones (Negative) Urine Blood (Negative) Urine Nitrite (Negative) Urine Bilirubin (Negative) Urine Urobilinogen (Negative) Ur Leukocyte Esterase (Negative) COVID-19 Eval Order SARS-CoV-2 (PCR) (Negative) 06/20/21 06/20/21 06/20/21 Range/Units 20:00 22:54 23:02 WBC (4.8-10.8) K/uL RBC (4.7-6.1) M/uL Hgb (14.0-18.0) g/dL Hct (42-52) % MCV (80-100) fL MCH (25-34) pg MCHC (32-36) g/dL RDW Std Deviation (36.4-46.3) fL RDW Coeff of Malcolm (11.5-14.5) % Plt Count (130-400) K/uL MPV (7.4-10.4) fL Immature Gran % (Auto) % Neut % (Auto) % Lymph % (Auto) % [place] % (Auto) % Eos % (Auto) % Baso % (Auto) % Neut # (Auto) (1.4-6.5) K/uL Lymph # (Auto) (1.2-3.4) K/uL [place] # (Auto) (0.11-0.59) K/uL Eos # (Auto) (0-0.5) K/uL Baso # (Auto) (0-0.2) K/uL Immature Gran # (Auto) (0.00-0.02) K/uL PT (9.0-12.0) Seconds INR (0.9-1.1) APTT (21.0-31.0) Seconds PTT Ratio Sodium (136-145) mmol/L Potassium (3.5-5.1) mmol/L Chloride (98-107) mmol/L Carbon Dioxide (21-32) mmol/L Anion Gap (3-11) BUN (7-18) mg/dl Creatinine (0.6-1.4) mg/dl Est Cr Clr Drug Dosing Est GFR ( Amer) ml/min Est GFR (Non-Af Amer) ml/min BUN/Creatinine Ratio (10-20) Glucose (70-99) mg/dl Lactate 1.8 (0.4-2.0) mmol/L Calcium (8.5-10.1) mg/dl Magnesium (1.8-2.4) mg/dl Total Bilirubin (0.2-1) mg/dl AST (15-37) U/L ALT (12-78) U/L Alkaline Phosphatase (45-117) U/L Troponin I (0-0.045) ng/ml Total Protein (6.4-8.2) gm/dl Albumin (3.4-5.0) gm/dl Globulin (2.5-4.0) gm/dl Albumin/Globulin Ratio (0.9-2) Urine Color Yellow Urine Appearance Clear (Clear) Urine pH 5.0 (4.5-7.5) Ur Specific [place] 1.007 (1.000-1.030) Urine Protein Negative (Negative) Urine Glucose (UA) Negative (Negative) Urine Ketones Negative (Negative) Urine Blood Negative (Negative) Urine Nitrite Negative (Negative) Urine Bilirubin Negative (Negative) Urine Urobilinogen Negative (Negative) Ur Leukocyte Esterase Negative (Negative) COVID-19 Eval Order Covid19 at [facility] SARS-CoV-2 (PCR) (Negative) 06/20/21 Range/Units 23:02 WBC (4.8-10.8) K/uL RBC (4.7-6.1) M/uL Hgb (14.0-18.0) g/dL Hct (42-52) % MCV (80-100) fL MCH (25-34) pg MCHC (32-36) g/dL RDW Std Deviation (36.4-46.3) fL RDW Coeff of Malcolm (11.5-14.5) % Plt Count (130-400) K/uL MPV (7.4-10.4) fL Immature Gran % (Auto) % Neut % (Auto) % Lymph % (Auto) % [place] % (Auto) % Eos % (Auto) % Baso % (Auto) % Neut # (Auto) (1.4-6.5) K/uL Lymph # (Auto) (1.2-3.4) K/uL [place] # (Auto) (0.11-0.59) K/uL Eos # (Auto) (0-0.5) K/uL Baso # (Auto) (0-0.2) K/uL Immature Gran # (Auto) (0.00-0.02) K/uL PT (9.0-12.0) Seconds INR (0.9-1.1) APTT (21.0-31.0) Seconds PTT Ratio Sodium (136-145) mmol/L Potassium (3.5-5.1) mmol/L Chloride (98-107) mmol/L Carbon Dioxide (21-32) mmol/L Anion Gap (3-11) BUN (7-18) mg/dl Creatinine (0.6-1.4) mg/dl Est Cr Clr Drug Dosing Est GFR ( Amer) ml/min Est GFR (Non-Af Amer) ml/min BUN/Creatinine Ratio (10-20) Glucose (70-99) mg/dl Lactate (0.4-2.0) mmol/L Calcium (8.5-10.1) mg/dl Magnesium (1.8-2.4) mg/dl Total Bilirubin (0.2-1) mg/dl AST (15-37) U/L ALT (12-78) U/L Alkaline Phosphatase (45-117) U/L Troponin I (0-0.045) ng/ml Total Protein (6.4-8.2) gm/dl Albumin (3.4-5.0) gm/dl Globulin (2.5-4.0) gm/dl Albumin/Globulin Ratio (0.9-2) Urine Color Urine Appearance (Clear) Urine pH (4.5-7.5) Ur Specific [place] (1.000-1.030) Urine Protein (Negative) Urine Glucose (UA) (Negative) Urine Ketones (Negative) Urine Blood (Negative) Urine Nitrite (Negative) Urine Bilirubin (Negative) Urine Urobilinogen (Negative) Ur Leukocyte Esterase (Negative) COVID-19 Eval Order SARS-CoV-2 (PCR) NEGATIVE (Negative) Administered Medications Bumetanide (Bumetanide 1 Mg Tab) 2 mg PO DAILY [facility] Stop: 07/21/21 08:59 Last Admin: 06/21/21 09:25 Dose: 2 mg Documented by: [id number] Enoxaparin Sodium (Enoxaparin Inj 40 Mg/0.4 Ml Syr) 40 mg SQ QAM [facility] Stop: 07/21/21 08:59 Last Admin: 06/21/21 09:24 Dose: 40 mg Documented by: [id number] Lactated Ringer's (Lr) 1,000 mls @ 80 mls/hr IV .[id number] [facility] Stop: 06/22/21 09:29 Last Admin: 06/21/21 09:45 Dose: 80 mls/hr Documented by: [id number] Piperacillin Sod/Tazobactam (Sod 3.375 gm/ Dextrose) 115 mls @ 28.75 mls/hr IV Q8H [facility]; Protocol Stop: 06/28/21 00:29 Last Admin: 06/21/21 09:23 Dose: 28.8 mls/hr Documented by: [id number] Insulin Aspart (Insulin Aspart 100 Units/Ml 3 Ml Pen) 0 units SC ACHS [facility] Stop: 07/21/21 07:29 Last Admin: 06/21/21 11:51 Dose: Not Given Documented by: [id number] Cosigned by: [id number] Admin: 06/21/21 09:21 Dose: 3 units Documented by: [id number] Cosigned by: [id number] Levothyroxine Sodium (Levothyroxine Sodium 88 Mcg Tablet) 88 mcg PO DAILYBB [facility] Stop: 07/21/21 06:29 Last Admin: 06/21/21 06:32 Dose: 88 mcg Documented by: [id number] Mupirocin (Mupirocin 2% Oint 22 Gm Tube) 1 appln EXT BID [facility] Stop: 07/21/21 08:59 Last Admin: 06/21/21 09:25 Dose: 1 appln Documented by: [id number] Discontinued Medications Piperacillin Sod/Tazobactam Sod (Zosyn) 4.5 gm in 120 mls @ 240 mls/hr IV NOW ONE Stop: 06/20/21 23:13 Last Infusion: 06/21/21 00:04 Dose: 0 mls/hr Documented by: [id number] Admin: 06/20/21 23:00 Dose: 240 mls/hr Documented by: [id number] Daptomycin 400 mg/ Syringe 8 mls @ 4 mls/min IV NOW ONE; Protocol Stop: 06/20/21 22:45 Last Admin: 06/21/21 00:00 Dose: 4 mls/min Documented by: [id number] Discharge Plan Visit Data Chief Complaint: Infection Stated Complaint: INFECTION IN L LEG ED Provider: Lyndon Cobb Discharge Problem: Cellulitis, Pedal edema, Failure of outpatient treatment, Leg ulcer Patient Disposition: Admitted As Inpatient Condition: Fair Discharge Instructions Interventions: ED Discharge Assessment Last Done: 06/21/21 02:39
--- NOTE | 2021-06-20 23:55 | History & Physical Report ---
Date of Service June 20, 2021 Assessment & Plan (1) Erysipelas of both lower extremities: (2) Venous ulcers of both lower extremities: (3) HFrEF (heart failure with reduced ejection fraction): (4) CAD (coronary artery disease): (5) Atrial fibrillation: (6) CKD (chronic kidney disease) stage 3, GFR 30-59 ml/min: (7) Hypothyroidism: Plan: 80 yo M PMHx significant for DM 2 diet controlled, HTN, HLD, CKD stage III, CAD s/p CABG, diastolic heart failure, hypothyroidism, GERD, bilateral lower extremity venous stasis ulcers Admitted for erysipelas/cellulitis to bilateral lower extremities requiring IV antibiotics. Bilateral lower extremity erysipelas, chronic venous stasis ulcers: -Presented with worsening bilateral lower extremity wounds with worsening erythema since Sunday. -On exam with extremely taut, vizcaino-red erythema to lower extremities to the level of the knee, with some spread up the medial thigh. Areas were demarcated with a marking pen. -Blood cultures x2 were drawn and patient was started on Dapto/Zosyn, will continue these. -Wound care nurse consulted while inpatient. -Continue home diuretics. DM2: -Patient has a continuous glucose monitor and has not had any BSG's higher than 150 over the last several weeks. -Patient is not on any medications outpatient and is diet controlled. -Patient may use continuous glucose monitor for qACHS glucose checks. -Patient is reticent to have insulin, and so ordered loose sliding scale with diabetic diet. CAD s/p CABG, HTN, HLD, AFib: -Patient is not on any prescribed medications for HTN, HLD, CAD, Hx AFib. Not on chronic anticoagulation. -In general would strongly encourage aspirin therapy, beta-darian, ARB, cholesterol control in this patient. Defer this management to PCP. CKD stage 3: -Baseline creatinine 1.6-1.8. Presents with creatinine 1.5, lower than typical. -Renally dose medications. CODE STATUS: FULL CODE FEN: DM2, Heart Healthy, Low Sodium DVT ppx: Lovenox 40mg daily DISPO: Med/Surg with Telemetry History of Present Illness Chief Complaint: bilateral LE pain, redness, acute wounds Primary Care Provider: Roc Casanova MD 80 yo M PMHx significant for DM 2 diet controlled, HTN, HLD, CKD stage III, CAD s/p CABG, diastolic heart failure, hypothyroidism, GERD, bilateral lower extremity venous stasis ulcers presented to the ER from wound care clinic for worsening erythema, pain, and wounds to the bilateral lower extremities L>R. Follows with wound care clinic twice weekly and at Sunday appointment was noted to have some worsening of his bilateral chronic wounds. Debridement was performed, wound culture was collected, and increased bandage changes were advised through the weekend. No antibiotics were given at that time. Patient was seen earlier today in wound care clinic and sent here due to evidence of cellulitis. In the ER patient was noted to have normal WBC count, afebrile with normal vitals, creatinine 1.58 (down from typical). Blood cultures were collected and patient was started on Dapto/Zosyn. Patient reports that in general he has not had any fevers over the last several days, but does endorse some chills today. No nausea or vomiting, chest pain, shortness of breath, dysuria, hematuria. Allergies Allergy/AdvReac Type Severity Reaction Status Date / Time cephalexin Allergy Intermediate pimple Verified 06/20/21 22:45 like rash cat dander Allergy Mild NO ALLERGY Verified 06/20/21 22:45 PATIENT PREFERENCE ragweed pollen Allergy Unknown SHORTNESS Verified 06/20/21 22:45 OF BREATH lisinopril AdvReac Mild Cough Verified 06/20/21 22:45 Gkfbeqr-Mvt-Buy Reductase AdvReac Mild SEE NOTE Verified 06/20/21 22:45 Inhibitor NO ALLERGY Home Medications Medication Instructions Recorded Confirmed Type fnlprllby-buz-utujav complex 100 mg PO DAILY 10/23/19 06/20/21 History #933-uwej-tkwgoaadia 100 mg tablet (Urinozinc Prostate Formula Plus) insulin aspart U-100 100 unit/mL 0 unit CONTINUOUS SUBCUTANEOUS 02/13/20 06/20/21 History subcutaneous solution (Novolog INFUSION DAILY U-100 Insulin aspart) mupirocin 2 % topical ointment 1 appln TOP BID #22 gm 03/19/20 06/20/21 Rx Lactobac #2-Bifido #1-S. therm 0 mg PO DAILY 06/16/20 06/20/21 History [High Potency Probiotic] Marshmallow Root See Rx Instructions PO BID 06/16/20 06/20/21 History milk thistle 500 mg capsule 1,000 mg PO DAILY cap 06/16/20 06/20/21 History simethicone 125 mg capsule (Gas-X 125 mg PO DAILY PRN 06/16/20 06/20/21 History Extra Strength) vitamins A,C,Z-rtlo-locwlf 1 tab PO BID 06/16/20 06/20/21 History [PreserVision AREDS] Super K Complex 0 mg PO DAILY 06/30/20 06/20/21 History acetylcarnitine 1 g PO DAILY 07/26/20 06/20/21 History garlic 1,000 mg capsule 5,000 mg PO DAILY 07/26/20 06/20/21 History miconazole nitrate 2 % topical 1 applic TOPICAL BID #85 g 07/30/20 06/20/21 Rx powder levothyroxine 88 mcg tablet 88 mcg PO DAILY 90 Days #90 tab 09/14/20 06/20/21 Rx bilberry 100 mg capsule 100 mg PO DAILY PRN 09/28/20 06/20/21 History olive leaf extract See Rx Instructions PO DAILY PRN 09/28/20 06/20/21 History FreeStyle Gaetano 14 Day Sensor #2 ea NS 06/20/21 06/20/21 Rx (flash glucose sensor) bumetanide 2 mg tablet 2 mg PO DAILY #30 tab 06/20/21 06/20/21 Rx calcitriol 0.5 mcg capsule 0.5 mcg PO 3XWK 06/20/21 06/20/21 History doxycycline hyclate 100 mg tablet 100 mg PO bid #28 tab 06/20/21 06/20/21 Rx Past Med/Surg History Medical History (Updated 06/21/21 @ 01:01 by Kim Lema DO) Acute kidney injury BPH (benign prostatic hyperplasia) CAD (coronary artery disease) Cardiac murmur Cataract Chronic diastolic (congestive) heart failure Chronic venous insufficiency Chronic venous stasis CKD (chronic kidney disease) Diabetes mellitus, type 2 IDDM Diabetic foot ulcer associated with type 2 diabetes mellitus Diabetic nephropathy Diabetic retinopathy Dysphagia Esophageal dysmotility History of epistaxis History of gastric ulcer History of GI bleed History of sleep apnea Hypercholesterolemia Hypertension Insulin pump in place Ischemic cardiomyopathy LVH (left ventricular hypertrophy) Lymphedema Microalbuminuria Myocardial infarction 2011 Neuropathy Protein in urine Secondary hyperparathyroidism of renal origin Swallowing dysfunction Trigeminal neuralgia of right side of face Uncontrolled type 2 diabetes mellitus with insulin therapy Vitamin D deficiency Surgical History History of appendectomy History of cardiac catheterization 2011 - [place] --> CABG History of colonoscopy (01/23/07) Dr. Gore, sigmoid diverticulosis, otherwise normal, recheck recommended 10 years History of coronary artery bypass graft 3 VESSELS - 2011 - follows w/ Dr. Calderon (reports last visit 6-7 years ago) History of esophagogastroduodenoscopy (EGD) History of left cataract surgery History of nasal cauterization History of tonsillectomy Family History Mother Family history of diabetes mellitus Ulcerative colitis Uncle Family history of diabetes mellitus Aunt Family history of diabetes mellitus Unknown Hypertension Other Heart disease History of tooth extraction No family history of adverse response to anesthesia No family history of bleeding disorder Stroke Denies family history of Ovarian cancer Prostate cancer Coronary heart disease Breast cancer Scrotal edema Colorectal cancer Social History Smoking Status: Never smoker Second Hand Exposure: Yes; Hx Alcohol Use: Yes Alcohol type: wine Hx Substance Use: No Preferred Language: Maori Communication Ability: Effective Visual Impairment: No Limitations Hearing Ability: Normal Card Game Operator Required: No Beliefs That Will Affect Care: None marital status: Current Living Situation: Spouse current occupational status: retired Feels Safe at Home: Yes Childhood Exposure to Second-Hand Smoke: No caffeine: Yes during the past year weight has: remained stable Dental Care, Regularly: Yes Seatbelt Use: never Sunscreen Use: No Assistive Devices: Walker Review of Systems Review of Systems: All systems reviewed & are unremarkable except as noted in HPI & below Constitutional: + chills; no fever and no malaise Respiratory: no cough and no dyspnea Cardiovascular: no chest pain, no palpitations and no edema Gastrointestinal: no abdominal pain, no constipation and no diarrhea/loose stools Physical Exam Constitutional: WD/WN, vitals as above Eyes: PERRL, conjunctivae normal, anicteric sclerae ENMT: external ear and nose normal, oropharynx normal Neck: normal visual inspection Respiratory: normal respiratory effort, lungs clear to auscultation Cardiovascular: Rate/Rhythm: regular rate and regular rhythm Heart Sounds: no murmur Extremities: + edema (signiifcant pitting edema to bilateral LE L>R) Gastrointestinal (Abdomen): normal bowel sounds, soft, nontender, no hepatosplenomegaly Musculoskeletal: no cyanosis or clubbing, extremities motor strength 5/5 Skin: Bilateral lower extremities to directly below the knee noted to be erythematous (L>R with purplish color), taught, with several superficial slough- like wounds on anterior sides. Noted to have several fluid-filled blisters, largest of which on LLE near the ankle. Redness extends up the medial thigh to the mid-thigh bilaterally. Areas were marked with a marking pen. Neurologic: AAOx3, normal speech. Bilateral UE, LE, and face without sensory or motor deficits. Psychiatric: A+Ox3, euthymic affect Results & Data Results & Data ([facility]) Vital Signs (Past 12 Hours) Vital Signs Temp Pulse Resp BP Pulse Ox 06/20/21 16:25 36.5 C 58 L 18 170/82 H 95 Supervising Physician Co-Signing Physician Notes Patient seen and examined, chart reviewed, case discussed with Dr. Lema and I agree with her assessment and plan as documented above. In brief, patient is a 80yo male with history of DM, chronic bilateral LE wounds for which he follows at wound clinic presenting with worsening pain and redness of bilateral LE. +Chills, otherwise no signs or symptoms of systemic infection Exam Bilateral LE with well demarcated erythema, smooth and shiny skin on LLE with surrounding blisters. Areas of ulceration Labs and images reviewed Assessment/Plan -Follow cultures -Conitnue broad spectrum antibiotics -Monitor closely for progression of infection -Remainder of plan as above Resident Activity Tracking Resident Involvement: Resident Care Provided Care Provided: Adult [facility] Medicine
[2021-06-21] MEDS ORDERED: GLUCOSE 40% GEL 15 GM TUBE PO PRN (02:58)
[2021-06-21] MEDS ORDERED: DEXTROSE 50% 50 ML SYRINGE IV PRN (02:58)
[2021-06-21] MEDS ORDERED: GLUCAGON FOR INJ 1 MG VIAL SQ PRN (02:58)
[2021-06-21] MEDS ORDERED: CARBOHYDRATES FOR HYPOGLYCEMIA PO PRN (02:58)
[2021-06-21] MEDS ORDERED: GLUCOSE 10 TABS/TUBE PO PRN (02:58)
[2021-06-21] MEDS ORDERED: ONDANSETRON INJ 2 MG/ML 2 ML VIAL IV PRN (02:58)
--- NOTE | 2021-06-21 05:15 | Billing Data ---
Date of Service June 20, 2021 Coding Level of Care Code 40051 Initial Inpt Care Lvl 3
[2021-06-21] MEDS: LEVOTHYROXINE SODIUM 88 MCG TABLET PO SCH (06:32)
[2021-06-21 07:38] LABS: Hematocrit (blood only) 37.9 % (42-52); Hemoglobin 12.8 g/dL (14.0-18.0); Mean Corpuscular Hemoglobin 32.4 pg (25-34); Mean Corpuscular Hgb Conc 33.8 g/dL (32-36); Mean Corpuscular Volume 95.9 fL (80-100); Mean Platelet Volume 11.2 fL (7.4-10.4); Platelet Count 140 K/uL (130-400); RDW Coefficient of Variation 14.2 % (11.5-14.5); RDW Standard Deviation 50.2 fL (36.4-46.3); Red Blood Count 3.95 M/uL (4.7-6.1); White Blood Count 6.75 K/uL (4.8-10.8)
[2021-06-21 08:11] LABS: Albumin Level 2.6 gm/dl (3.4-5.0); BUN Creatinine Ratio 27.8 (10-20); Blood Urea Nitrogen 44 mg/dl (7-18); Calcium 8.8 mg/dl (8.5-10.1); Carbon Dioxide 26 mmol/L (21-32); Chloride 110 mmol/L (98-107); Est GFR (African American) 47.2 ml/min; Est GFR (Non-African American) 40.7 ml/min; Glucose 205 mg/dl (70-99); Potassium 3.8 mmol/L (3.5-5.1); Sodium 143 mmol/L (136-145)
[2021-06-21 08:19] LABS: Alanine Aminotransferase 19 U/L (12-78); Albumin Globulin Ratio 0.6 (0.9-2); Alkaline Phosphatase 174 U/L (45-117); Aspartate Aminotransferase 14 U/L (15-37); Globulin 4.3 gm/dl (2.5-4.0); Total Protein 6.9 gm/dl (6.4-8.2)
--- NOTE | 2021-06-21 08:55 | Electrocardiogram Report ---
Test Reason : Blood Pressure : / mmHG Vent. Rate : 061 BPM Atrial Rate : 056 BPM P-R Int : 000 ms QRS Dur : 170 ms QT Int : 470 ms P-R-T Axes : 000 -74 098 degrees QTc Int : 473 ms Atrial fibrillation Left axis deviation Non-specific intra-ventricular conduction block Abnormal ECG When compared with ECG of 29-JUL-2020 10:15, Non-specific intra-ventricular conduction block has replaced Right bundle branch block Confirmed by Scottie Allen ([id number]) on 06/21/2021 8:55:15 AM Referred By: REFERRED SELF Confirmed By:Jean-Paul Allen
[2021-06-21] MEDS: INSULIN ASPART 100 UNITS/ML 3 ML PEN SC SCH ×4 (09:21→20:31)
[2021-06-21] MEDS: PIPERACILLIN/TAZOBACTAM 3.375 GM in DEXTROSE 5% 100 ML IV SCH ×2 (09:23→16:42)
[2021-06-21] MEDS: ENOXAPARIN INJ 40 MG/0.4 ML SYR SQ SCH (09:24)
[2021-06-21] MEDS: MUPIROCIN 2% OINT 22 GM TUBE EXT SCH ×2 (09:25→20:32)
[2021-06-21] MEDS: BUMETANIDE 1 MG TAB PO SCH (09:25)
[2021-06-21] MEDS: LACTATED RINGER'S 1,000 ML IV SCH ×2 (09:45→20:32)
--- NOTE | 2021-06-21 12:07 | Hospitalist Progress Note ---
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 Bilateral Lower Extremity Cellulitis with Chronic Venous Stasis Ulcers Improving with IV antibiotics. - continue IV Daptomycin/Zosyn - continue LR @80cc/hr x2L, further IVFs as necessary - follow blood cultures - wound care consulted - pending T2DM Patient is not on any medications outpatient and is diet controlled. Last A1c 8.4 in 07/2020. - Patient may use continuous glucose monitor for qACHS glucose checks. - SSI while hospitalized - A1c ordered for AM Paroxysmal A-fib Rate-controlled. In a-fib currently. Not on BB or anti-coagulation. - CHADS-VASc score of 6 - patient does not want to start anti-coagulation at this time; recommend PCP re-visit this after discharge CAD s/p CABG, HFmrEF, HTN, HLD - Patient is not on any prescribed medications for HTN, HLD, CAD, or HF - continue Bumex 2mg PO daily - In general would strongly encourage aspirin therapy, beta-darian, ARB, cholesterol control in this patient. Defer this management to PCP. CKD stage III - Baseline creatinine 1.6-1.8. Presents with creatinine 1.5, lower than typical. - Renally dose medications. CODE STATUS: DNR/DNI FEN/GI: DM2, Heart Healthy, Low Sodium diet DVT ppx: Lovenox 40mg daily DISPO: Med/Surg with Telemetry (2) Venous ulcers of both lower extremities: (3) CAD (coronary artery disease): (4) Atrial fibrillation: (5) CKD (chronic kidney disease) stage 3, GFR 30-59 ml/min: (6) Hypothyroidism: (7) Heart failure: Admission and Anticipated Discharge Date Admission Date: June 20, 2021 Supervising Physician Co-Signing Physician Notes Attending attestation Pt seen and examined in concert with Dr. Dobbins. In agreement with the documented findings as noted in the resident documentation with any exceptions or additions as noted here. Bilateral LE pain improved from presentation without significant change in rash. Patient welcomes management of b/l LE but defers medical management of anticoagulation with his ongoing atrial fibrillation 2/2 taking herbal supplements that he believes sufficient. On examination, S1/S2 nl IRR/IRR no MCG. CTAB. Abd NT/ND BS+ve. Intense b/l LE warm, TTP, indurated rash well circumscribed by marked borders. B/L LE celluitis w/ chronic venous stasis ulcers - wound care consult pending - continue dapto/zosyn. follow BCx. HFmrEF - continue PO bumetanide Atrial fibrillation - extensive discussion, patient defers AC and any further discussion of same at this time despite review of potential consequences of ongoing AF with no AC. Else see resident documentation as noted. Subjective No acute events overnight. Afebrile since arrival at hospital. Reports improvement in pain in legs since here. Denies fever/chills, chest pain, palpitations, SOB, cough, N/V, abdominal pain. Review of Systems Review of Systems: All systems reviewed & are unremarkable except as noted in HPI & below Physical Exam Physical Exam: General: A&Ox3. NAD. Cooperative. HEENT: Atraumatic, normocephalic. Pulm: CTAB A&P. -wheezes, -rales, -rhonchi. Symmetrical chest rise. No increase work of breathing. No respiratory distress. Cardiac: Irregularly irregular rhythm, -mrg. Radial pulses intact and symmetrical. Abdominal: soft, non-tender, non-distended, BS x 4 Legs: circumferential erythematous rash on bilateral legs from feet to knees, with red streaking to mid-internal thighs. Based on borders drawn on admission it has receded from thighs. Warm and moderately tender to palpation. Dressings over shins are c/d/i. Results & Data Results & Data ([facility]) Vital Signs (Past 12 Hours) Vital Signs Temp Pulse Resp BP BP Pulse Ox 06/21/21 08:00 36.8 C 18 151/70 H 94 06/21/21 02:00 57 L 24 141/65 H 91 06/21/21 01:30 61 23 147/67 H 06/21/21 01:00 63 22 148/76 H 91 06/21/21 00:30 59 L 20 142/68 H 94 Resident Activity Tracking Resident Involvement: Resident Care Provided Care Provided: Adult Hospital Medicine
[2021-06-21] MEDS: ACETAMINOPHEN 325 MG TAB PO PRN (20:30)
[2021-06-21] MEDS: DAPTOmycin 350 MG in SYRINGE 0 ML IV SCH (22:03)
[2021-06-22] MEDS: PIPERACILLIN/TAZOBACTAM 3.375 GM in DEXTROSE 5% 100 ML IV SCH ×3 (00:11→17:00)
[2021-06-22] MEDS: LEVOTHYROXINE SODIUM 88 MCG TABLET PO SCH (05:33)
[2021-06-22 07:52] LABS: Basophils # (auto) 0.02 K/uL (0-0.2); Basophils % (auto) 0.3 %; Eosinophils # (auto) 0.17 K/uL (0-0.5); Eosinophils % (auto) 2.9 %; Hematocrit (blood only) 39.4 % (42-52); Lymphocytes # (auto) 0.71 K/uL (1.2-3.4); Lymphocytes % (auto) 12.1 %; Mean Corpuscular Hemoglobin 31.8 pg (25-34); Mean Corpuscular Volume 96.3 fL (80-100); Monocytes # (auto) 0.86 K/uL (0.11-0.59); Monocytes % (auto) 14.6 %; Neutrophils # (auto) 4.12 K/uL (1.4-6.5); Neutrophils % (auto) 70.1 %; Platelet Count 142 K/uL (130-400); RDW Coefficient of Variation 14.5 % (11.5-14.5); RDW Standard Deviation 51.4 fL (36.4-46.3); Red Blood Count 4.09 M/uL (4.7-6.1); White Blood Count 5.88 K/uL (4.8-10.8)
[2021-06-22 08:12] LABS: Estimated Average Glucose 171 mg/dl; Hemoglobin A1C 7.6 % (4.5-5.6)
[2021-06-22] MEDS: ENOXAPARIN INJ 40 MG/0.4 ML SYR SQ SCH (08:15)
[2021-06-22] MEDS: BUMETANIDE 1 MG TAB PO SCH (08:17)
[2021-06-22] MEDS: INSULIN ASPART 100 UNITS/ML 3 ML PEN SC SCH ×4 (08:18→20:47)
[2021-06-22] MEDS: MUPIROCIN 2% OINT 22 GM TUBE EXT SCH ×2 (08:18→20:45)
[2021-06-22 08:19] LABS: Calcium 8.5 mg/dl (8.5-10.1); Creatinine Clr Calc Pharmacy 33.9 ml/min; Est GFR (African American) 34.7 ml/min; Est GFR (Non-African American) 29.9 ml/min; Magnesium 2.1 mg/dl (1.8-2.4); Potassium 3.7 mmol/L (3.5-5.1)
[2021-06-22] MEDS ORDERED: LACTATED RINGER'S 1,000 ML IV SCH (09:00)
[2021-06-22] MEDS ORDERED: CALCITRIOL 0.25 MCG CAPSULE PO SCH (09:00)
[2021-06-22] MEDS: ACETAMINOPHEN 325 MG TAB PO PRN (10:09)
[2021-06-22] MEDS ORDERED: FUROSEMIDE 40 MG in SYRINGE 0 ML IV ONE (10:45)
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
--- NOTE | 2021-06-22 17:01 | Cardiology Consultation ---
Date of Consultation June 22, 2021 Assessment & Plan (1) Pedal edema: Clearly a combination of venous insufficiency, diastolic heart failure, systolic heart failure and likely right ventricular failure. He is being treated aggressively on an outpatient basis for all of these problems. He will need to continue seeing the [facility], follow up in Cardiology in the vascular service. At this point in time we can continue daily diuresis monitoring his electrolytes and renal function closely. (2) Atrial fibrillation: Permanent. No symptoms. The patient states that he developed atrial fibrillation as a child. There have been extensive discussions in the past regarding the utility of anticoagulants. He feels that his current anticoagulation with supplements is adequate. He is not interested in more potent anticoagulants given his history of epistaxis. Rate control appears adequate. (3) CAD (coronary artery disease): Remote history of bypass grafting. No current symptoms suggestive of coronary insufficiency or angina. Not on optimal medical therapy by choice and desire to take supplements as opposed to prescription medication. (4) Ischemic cardiomyopathy: Mildly reduced LV systolic function with severe LVH likely contributing to diastolic dysfunction noted on echocardiography in June of last year for I believe is an urgent indication for repeat echocardiography. Mainstay of treatment in his case will be diuresis. He had a does not want or appear to be a good candidate for standard medical therapy. He has been continued on a daily dose of bumetanide. Renal function appears to be declining. We will need to monitor this closely and perhaps discontinue diuretics or reduced dose if his renal function worsens. Lung examination benign today. while he clearly has an element of lower extremity edema, this is multifactorial and may not respond exclusively to diuretic therapy. History of Present Illness Reason for Consultation: Heart failure Requesting Physician: Mu Attending Physician: Timothy Fortune MD History of Present Illness The patient is a 80-year-old gentleman with a known history of coronary disease having previously undergone surgical revascularization. He is also known to have an element of reduced LV systolic function and permanent atrial fibrillation. He was admitted primarily for lower extremity edema, ulcers and evidence of cellulitis. The patient follows closely in the [facility]. He has been evaluated in the outpatient setting for venous insufficiency and has undergone some procedures for venous stasis disease. He did not report subjective fevers or chills. He did have some discomfort primarily in the right knee that appears to have improved since he took his home supplements earlier today. The patient states that he is ambulatory around his residence with a wheeled walker and occasionally a cane. He is ambulatory without these assistive dev ices on occasion. His main limitation involves his lower extremities. He did not endorse symptoms of limiting dyspnea. He did not endorse shortness of breath recently. He has not had symptoms of chest discomfort. He has been unaware of any palpitations. The patient appears to have alternative views regarding his medications and medical therapy. He is currently taking a supplement for his mitochondrial and believes this will help with any breathing difficulty. He believes that his current supplements provide adequate protection against stroke in the setting of atrial fibrillation. His primary concern is his lower extremities and he is not interested in having another cardio Allergies Allergy/AdvReac Type Severity Reaction Status Date / Time cephalexin Allergy Intermediate pimple Verified 06/20/21 22:45 like rash cat dander Allergy Mild NO ALLERGY Verified 06/20/21 22:45 PATIENT PREFERENCE ragweed pollen Allergy Unknown SHORTNESS Verified 06/20/21 22:45 OF BREATH lisinopril AdvReac Mild Cough Verified 06/20/21 22:45 Abvckjg-Leg-Cro Reductase AdvReac Mild SEE NOTE Verified 06/20/21 22:45 Inhibitor NO ALLERGY Home Medications Medication Instructions Recorded Confirmed Type hqyrxipbx-svy-xsfggg complex 100 mg PO DAILY 10/23/19 06/20/21 History #[id number] 100 mg tablet (Urinozinc Prostate Formula Plus) insulin aspart U-100 100 unit/mL 0 unit CONTINUOUS SUBCUTANEOUS 02/13/20 1001/05 History subcutaneous solution (Novolog INFUSION DAILY U-100 Insulin aspart) mupirocin 2 % topical ointment 1 appln TOP BID #22 gm 03/19/20 06/20/21 Rx Lactobac #2-Bifido #1-S. therm 0 mg PO DAILY 06/16/20 06/20/21 History [High Potency Probiotic] Marshmallow Root See Rx Instructions PO BID 06/16/20 06/20/21 History milk thistle 500 mg capsule 1,000 mg PO DAILY cap 06/16/20 06/20/21 History simethicone 125 mg capsule (Gas-X 125 mg PO DAILY PRN 06/16/20 06/20/21 History Extra Strength) vitamins A,C,L-iuwx-oxsasx 1 tab PO BID 06/16/20 06/20/21 History [PreserVision AREDS] Super K Complex 0 mg PO DAILY 06/30/20 06/20/21 History acetylcarnitine 1 g PO DAILY 07/26/20 06/20/21 History garlic 1,000 mg capsule 5,000 mg PO DAILY 07/26/20 06/20/21 History miconazole nitrate 2 % topical 1 applic TOPICAL BID #85 g 07/30/20 06/20/21 Rx powder levothyroxine 88 mcg tablet 88 mcg PO DAILY 90 Days #90 tab 09/14/20 06/20/21 Rx bilberry 100 mg capsule 100 mg PO DAILY PRN 09/28/20 06/20/21 History olive leaf extract See Rx Instructions PO DAILY PRN 09/28/20 06/20/21 History FreeStyle Gaetano 14 Day Sensor #2 ea NS 06/20/21 06/20/21 Rx (flash glucose sensor) bumetanide 2 mg tablet 2 mg PO DAILY #30 tab 06/20/21 06/20/21 Rx calcitriol 0.5 mcg capsule 0.5 mcg PO 3XWK 06/20/21 06/20/21 History doxycycline hyclate 100 mg tablet 100 mg PO bid #28 tab 06/20/21 06/20/21 Rx Patient History Medical History (Updated 06/21/21 @ 18:11 by Gopal Dobbins MD) Acute kidney injury BPH (benign prostatic hyperplasia) CAD (coronary artery disease) Cardiac murmur Cataract Chronic diastolic (congestive) heart failure Chronic venous insufficiency Chronic venous stasis CKD (chronic kidney disease) Diabetes mellitus, type 2 IDDM Diabetic foot ulcer associated with type 2 diabetes mellitus Diabetic nephropathy Diabetic retinopathy Dysphagia Esophageal dysmotility Heart failure History of epistaxis History of gastric ulcer History of GI bleed History of sleep apnea Hypercholesterolemia Hypertension Insulin pump in place Ischemic cardiomyopathy LVH (left ventricular hypertrophy) Lymphedema Microalbuminuria Myocardial infarction 2011 Neuropathy Protein in urine Secondary hyperparathyroidism of renal origin Swallowing dysfunction Trigeminal neuralgia of right side of face Uncontrolled type 2 diabetes mellitus with insulin therapy Vitamin D deficiency Surgical History History of appendectomy History of cardiac catheterization 2012 - [place] - [place] --> CABG History of colonoscopy (01/23/07) Dr. Gore, sigmoid diverticulosis, otherwise normal, recheck recommended 10 years History of coronary artery bypass graft 3 [facility] - 2011 - follows w/ Dr. Calderon (reports last visit 6-7 years ago) History of esophagogastroduodenoscopy (EGD) History of left cataract surgery History of nasal cauterization History of tonsillectomy Family History Mother Family history of diabetes mellitus Ulcerative colitis Uncle Family history of diabetes mellitus Aunt Family history of diabetes mellitus Unknown Hypertension Other Heart disease History of tooth extraction No family history of adverse response to anesthesia No family history of bleeding disorder Stroke Denies family history of Ovarian cancer Prostate cancer Coronary heart disease Breast cancer Scrotal edema Colorectal cancer Social History Smoking Status: Never smoker Second Hand Exposure: No; Hx Alcohol Use: No Hx Substance Use: No Preferred Language: [place] Communication Ability: Effective Visual Impairment: No Limitations Hearing Ability: Normal Morphologist Required: No Beliefs That Will Affect Care: None marital status: Current Living Situation: Spouse current occupational status: retired Feels Safe at Home: Yes Childhood Exposure to Second-Hand Smoke: No caffeine: Yes during the past year weight has: remained stable Dental Care, Regularly: Yes Seatbelt Use: never Sunscreen Use: No Assistive Devices: Walker Review of Systems Review of Systems: Per HPI. Physical Exam Physical Exam: The patient is alert and oriented. Mood and affect appeared normal. He answered all questions appropriately. HEENT: Pupils are equal and reactive to light and accommodation. Extraocular movements are intact. The sclerae are anicteric. Neuro: Cranial nerves intact Lungs: Left lung appears to be clear with good air movement. Normal respiratory effort. Some decreased breath sounds on the right side. No rales. No expiratory wheezing. Cardiac: Heart demonstrates an irregular rate and rhythm. Normal S1 and S2. No murmurs on examination. Pulses: The patient has palpable radial pulses bilaterally that are equal in intensity Extremities: Lower extremities are wrapped. Does have fungal infection of the nails on both feet. The feet themselves are swollen and red. There are chronic trophic changes on both feet. Results & Data ([facility]) Vital Signs (Past 12 Hours) Vital Signs Temp Pulse Pulse Resp BP Pulse Ox 06/22/21 15:40 36.8 C 62 16 153/74 H 92 06/22/21 15:34 59 L 06/22/21 11:42 36.5 C 61 18 157/67 H 90 06/22/21 07:37 61 06/22/21 06:57 36.5 C 61 18 152/79 H 92 Laboratory Results Abnormal Lab Results 06/21/21 06/21/21 06/21/21 16:00 20:20 20:22 WBC RBC Hgb Hct MCV MCH MCHC RDW Std Deviation RDW Coeff of Malcolm Plt Count MPV Immature Gran % (Auto) Neut % (Auto) Lymph % (Auto) Brantley % (Auto) Eos % (Auto) Baso % (Auto) Neut # (Auto) Lymph # (Auto) Brantley # (Auto) Eos # (Auto) Baso # (Auto) Immature Gran # (Auto) Sodium Potassium Chloride Carbon Dioxide Anion Gap BUN Creatinine Est Cr Clr Drug Dosing Est GFR ( Amer) Est GFR (Non-Af Amer) BUN/Creatinine Ratio Glucose POC Glucose 480 H* 196 H Estimat Average Glucose Hemoglobin A1c Calcium Magnesium NT-Pro-B Natriuret Pep Nasal Screen MRSA (PCR) Negative 06/22/21 06/22/21 06/22/21 07:19 07:19 07:19 WBC 5.88 RBC 4.09 L Hgb 13.0 L Hct 39.4 L MCV 96.3 MCH 31.8 MCHC 33.0 RDW Std Deviation 51.4 H RDW Coeff of Malcolm 14.5 Plt Count 142 MPV 11.0 H Immature Gran % (Auto) 0.0 Neut % (Auto) 70.1 Lymph % (Auto) 12.1 Brantley % (Auto) 14.6 Eos % (Auto) 2.9 Baso % (Auto) 0.3 Neut # (Auto) 4.12 Lymph # (Auto) 0.71 L Brantley # (Auto) 0.86 H Eos # (Auto) 0.17 Baso # (Auto) 0.02 Immature Gran # (Auto) 0.00 Sodium 143 Potassium 3.7 Chloride 109 H Carbon Dioxide 27 Anion Gap 7.0 BUN 47 H Creatinine 2.05 H D Est Cr Clr Drug Dosing 33.9 Est GFR ( Amer) 34.7 Est GFR (Non-Af Amer) 29.9 BUN/Creatinine Ratio 23.0 H Glucose 176 H POC Glucose Estimat Average Glucose 171 Hemoglobin A1c 7.6 H Calcium 8.5 Magnesium 2.1 NT-Pro-B Natriuret Pep Nasal Screen MRSA (PCR) 06/22/21 06/22/21 06/22/21 07:19 07:23 11:28 WBC RBC Hgb Hct MCV MCH MCHC RDW Std Deviation RDW Coeff of Malcolm Plt Count MPV Immature Gran % (Auto) Neut % (Auto) Lymph % (Auto) Brantley % (Auto) Eos % (Auto) Baso % (Auto) Neut # (Auto) Lymph # (Auto) Brantley # (Auto) Eos # (Auto) Baso # (Auto) Immature Gran # (Auto) Sodium Potassium Chloride Carbon Dioxide Anion Gap BUN Creatinine Est Cr Clr Drug Dosing Est GFR ( Amer) Est GFR (Non-Af Amer) BUN/Creatinine Ratio Glucose POC Glucose 155 H 190 H Estimat Average Glucose Hemoglobin A1c Calcium Magnesium NT-Pro-B Natriuret Pep 06026 H Nasal Screen MRSA (PCR) 06/22/21 16:36 WBC RBC Hgb Hct MCV MCH MCHC RDW Std Deviation RDW Coeff of Malcolm Plt Count MPV Immature Gran % (Auto) Neut % (Auto) Lymph % (Auto) Brantley % (Auto) Eos % (Auto) Baso % (Auto) Neut # (Auto) Lymph # (Auto) Brantley # (Auto) Eos # (Auto) Baso # (Auto) Immature Gran # (Auto) Sodium Potassium Chloride Carbon Dioxide Anion Gap BUN Creatinine Est Cr Clr Drug Dosing Est GFR ( Amer) Est GFR (Non-Af Amer) BUN/Creatinine Ratio Glucose POC Glucose 214 H Estimat Average Glucose Hemoglobin A1c Calcium Magnesium NT-Pro-B Natriuret Pep Nasal Screen MRSA (PCR) Diagnostic Findings Echocardiogram obtained on 06/30/2020 revealed ejection fraction of 45%. There were regional wall motion abnormalities. Severe LVH. Mild aortic root dilation. No significant valvular heart disease. There was evidence of mildly reduced RV systolic function. ECG Additional Comments: Obtained the time admission revealed atrial fibrillation with a nonspecific interventricular conduction delay. Unchanged from July of 2020 PG Care Time/CCT Total # of Minutes Spent Total Time Spent with Patient: Total time spent is greater than 50% in coordination of care (as documented) at patient's floor/unit and/or counseling patient: Coding Level of Care Code 61764 Initial Inpt Care Lvl 3 Diagnoses Pedal edema R60.0 Atrial fibrillation I48.91 CAD (coronary artery disease) I25.10 Ischemic cardiomyopathy I25.5
[2021-06-22] MEDS: DAPTOmycin 350 MG in SYRINGE 0 ML IV SCH (22:53)
[2021-06-23] MEDS: PIPERACILLIN/TAZOBACTAM 3.375 GM in DEXTROSE 5% 100 ML IV SCH ×2 (00:07→08:22)
[2021-06-23] MEDS: LEVOTHYROXINE SODIUM 88 MCG TABLET PO SCH (05:08)
[2021-06-23] MEDS: POTASSIUM CHLORIDE / WTR 10 MEQ/100 ML PLCT IV SCH ×4 (05:46→10:17)
[2021-06-23 07:18] LABS: Basophils # (auto) 0.03 K/uL (0-0.2); Basophils % (auto) 0.5 %; Eosinophils # (auto) 0.21 K/uL (0-0.5); Eosinophils % (auto) 3.3 %; Hematocrit (blood only) 38.7 % (42-52); Hemoglobin 12.8 g/dL (14.0-18.0); Immature Granulocytes # (auto) 0.02 K/uL (0.00-0.02); Immature Granulocytes % (auto) 0.3 %; Lymphocytes # (auto) 0.74 K/uL (1.2-3.4); Lymphocytes % (auto) 11.6 %; Mean Corpuscular Hemoglobin 32.2 pg (25-34); Mean Corpuscular Hgb Conc 33.1 g/dL (32-36); Mean Corpuscular Volume 97.2 fL (80-100); Mean Platelet Volume 10.9 fL (7.4-10.4); Monocytes # (auto) 0.92 K/uL (0.11-0.59); Monocytes % (auto) 14.5 %; Neutrophils # (auto) 4.44 K/uL (1.4-6.5); Neutrophils % (auto) 69.8 %; Platelet Count 145 K/uL (130-400); RDW Coefficient of Variation 14.3 % (11.5-14.5); RDW Standard Deviation 50.9 fL (36.4-46.3); Red Blood Count 3.98 M/uL (4.7-6.1); White Blood Count 6.36 K/uL (4.8-10.8)
[2021-06-23 07:38] LABS: BUN Creatinine Ratio 25.2 (10-20); Calcium 8.4 mg/dl (8.5-10.1); Creatinine Clr Calc Pharmacy 38.3 ml/min; Est GFR (Non-African American) 34.6 ml/min; Magnesium 1.6 mg/dl (1.8-2.4); Phosphorus 4.8 mg/dl (2.5-4.9); Potassium 3.4 mmol/L (3.5-5.1)
[2021-06-23] MEDS ORDERED: POTASSIUM CHLORIDE CRTAB 20 MEQ TABCR PO STA (07:40)
[2021-06-23] MEDS: MAGNESIUM SULFATE / D5W 1 GM/100 ML BAG IV SCH ×2 (08:08→09:58)
[2021-06-23] MEDS: INSULIN ASPART 100 UNITS/ML 3 ML PEN SC SCH ×2 (08:13→12:13)
[2021-06-23] MEDS: ENOXAPARIN INJ 40 MG/0.4 ML SYR SQ SCH (08:16)
[2021-06-23] MEDS: BUMETANIDE 1 MG TAB PO SCH (08:16)
[2021-06-23] MEDS: MUPIROCIN 2% OINT 22 GM TUBE EXT SCH (08:16)
--- NOTE | 2021-06-23 12:03 | Discharge Summary ---
Date of Service June 23, 2021 Admission HPI Per Admitting Provider 80 yo M PMHx significant for DM 2 diet controlled, HTN, HLD, CKD stage III, CAD s/p CABG, diastolic heart failure, hypothyroidism, GERD, bilateral lower extremity venous stasis ulcers presented to the ER from wound care clinic for worsening erythema, pain, and wounds to the bilateral lower extremities L>R. Follows with wound care clinic twice weekly and at Sunday appointment was noted to have some worsening of his bilateral chronic wounds. Debridement was performed, wound culture was collected, and increased bandage changes were advised through the weekend. No antibiotics were given at that time. Patient was seen earlier today in wound care clinic and sent here due to evidence of cellulitis. In the ER patient was noted to have normal WBC count, afebrile with normal vitals, creatinine 1.58 (down from typical). Blood cultures were collected and patient was started on Dapto/Zosyn. Patient reports that in general he has not had any fevers over the last several days, but does endorse some chills today. No nausea or vomiting, chest pain, shortness of breath, dysuria, hematuria. Admission Exam Per Admitting Provider Constitutional: WD/WN, vitals as above Eyes: PERRL, conjunctivae normal, anicteric sclerae ENMT: external ear and nose normal, oropharynx normal Neck: normal visual inspection Respiratory: normal respiratory effort, lungs clear to auscultation Cardiovascular: Rate/Rhythm: regular rate and regular rhythm Heart Sounds: no murmur Extremities: + edema (signiifcant pitting edema to bilateral LE L>R) Gastrointestinal (Abdomen): normal bowel sounds, soft, nontender, no hepatosplenomegaly Musculoskeletal: no cyanosis or clubbing, extremities motor strength 5/5 Skin: Bilateral lower extremities to directly below the knee noted to be erythematous (L>R with purplish color), taught, with several superficial slough- like wounds on anterior sides. Noted to have several fluid-filled blisters, la rgest of which on LLE near the ankle. Redness extends up the medial thigh to the mid-thigh bilaterally. Areas were marked with a marking pen. Neurologic: AAOx3, normal speech. Bilateral UE, LE, and face without sensory or motor deficits. Psychiatric: A+Ox3, euthymic affect Principal Diagnosis Bilateral Lower Extremity Cellulitis Acute HFmrEF Exacerbation Discharge Exam General: A&Ox3. NAD. Cooperative. HEENT: Atraumatic, normocephalic. Pulm: CTAB A&P. -wheezes, -rales, -rhonchi. Symmetrical chest rise. No increase work of breathing. No respiratory distress. Cardiac: Irregularly irregular rhythm, -mrg. Radial pulses intact and symmetrical. Abdominal: soft, non-tender, non-distended, BS x 4 Legs: circumferential erythematous rash on bilateral legs from feet to knees, with red streaking to mid-internal thighs. Decreased in size from yesterday. No warmth or tenderness to palpation. Dressings over shins are c/d/i. Discharge Data Allergies Allergy/AdvReac Type Severity Reaction Status Date / Time cephalexin Allergy Intermediate pimple Verified 06/20/21 22:45 like rash cat dander Allergy Mild NO ALLERGY Verified 06/20/21 22:45 PATIENT PREFERENCE ragweed pollen Allergy Unknown SHORTNESS Verified 06/20/21 22:45 OF BREATH lisinopril AdvReac Mild Cough Verified 06/20/21 22:45 Jliavnj-Hsj-Zzv Reductase AdvReac Mild SEE NOTE Verified 06/20/21 22:45 Inhibitor NO ALLERGY Consultations 06/20/21 22:53 ED Decision to Admit Stat 06/22/21 10:38 Consult Cardiology Routine Hospital Course (1) Erysipelas of both lower extremities: 80 yo M PMHx significant for T2DM (last A1c 8.4 in 07/2020), HTN, HLD, CKD stage III (Cr 1.8-2), CAD s/p CABG, 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 CHERELLE on CKD stage III, CHERELLE resolved; Acute on Chronic HFmrEF, Exacerbation resolved Baseline creatinine 1.6-1.8. Presented with creatinine 1.5, increased to 2.05 on 06/22 despite mIVFs. BNP elevated at 10,214 --> Suspect Acute on Chronic HFmrEF and associated CHERELLE due to this. - stopped IVFs on 06/22 - Cr improved to 1.82 (chronic baseline) after Lasix 40mg IV x1 - initially required 2-3L NC but weaned to room air today after second dose of Lasix - patient refused TTE - continue home Bumex 2mg PO daily - Cardiology consulted - no further work-up as inpatient - f/u with Latrice Carlson (HF clinic) after discharge - Renally dose medications Bilateral Lower Extremity Cellulitis with Chronic Venous Stasis Ulcers Started on Daptomycin/Zosyn on admission, significantly improved with IV antibiotics. Blood cultures negative after 48 hours. MRSA nares negative - Daptomycin/Zosyn transitioned to Doxycycline 100mg PO BID on 06/23; continue for 1 week after discharge (total 10 days tx) - follow up with wound clinic after discharge Bilateral Knee Pain Patient reports several days of worsening pain. Most likely osteoarthritis but requires further evaluation to r/o septic arthritis. - Bilateral 3-view Knee XR ordered but patient refused - recommend further evaluation and treatment as outpatient T2DM A1c 7.6 during this hospitalization. Patient is not on any medications outpatient and is diet controlled. - SSI while hospitalized - f/u with PCP Paroxysmal A-fib Rate-controlled. In a-fib currently. Not on BB or anti-coagulation. - CHADS-VASc score of 6 - patient does not want to start anti-coagulation at this time; recommend PCP re-visit this after discharge CAD s/p CABG, HTN, HLD - Patient is not on any prescribed medications for HTN, HLD, CAD, or HF - In general would strongly encourage aspirin therapy, beta-darian, ARB, cholesterol control in this patient. Defer this management to PCP, as the patient refuses these treatments at this time. (2) Venous ulcers of both lower extremities: (3) CAD (coronary artery disease): (4) Atrial fibrillation: (5) CKD (chronic kidney disease) stage 3, GFR 30-59 ml/min: (6) Hypothyroidism: (7) Heart failure: Total Time Total Time Spent Total Time Spent (In Minutes): 40 minutes Discharge Plan Discharge Items Patient Disposition: Home - Self-Care Reason For Visit: BILATERAL LE CELLULITIS Discharge Diagnosis: Bilateral Lower Extremity Cellulitis Acute on Chronic HFmrEF Condition on Discharge: Fair Activity: Per Instructions section Non-emergency contact: Primary Care Provider and Glass Inserter Call non-emergency contact if: you have any medication questions, your symptoms worsen, you have a fever, your wound has increased redness, your wound has increased drainage and your wound pain has increased Follow-up/Referrals: Roc Casanova III, MD [Primary Care Provider] - 06/28/21 2:00 pm (appointment with Sana KIM ) Ally Carlson PA-C [Physician Selling Manager] - 06/29/21 2:00 pm (Congestive Heart Failure Program Appointment Information Early follow up is essential to managing your heart failure. An appointment has been scheduled for you with the [facility] Heart Failure Program within 7 days of discharge. Anticipate this visit to be 30-60 minutes long. Please expect a trouble dispatcher phone call from one of our nurses approximately 48 hours from discharge. They will also be placing an order for lab work to be completed 1-2 days prior to your heart failure follow up appointment. Please be sure to have this done so we can go over the results when you come in. Office Location The cardiology office building is located in front of the hospital at [address]. Bring the following with you to your follow-up doctor appointments: Please bring your daily weight log any discharge paperwork all of your medication bottles with you to this visit. ) Diet: Carb Consistent or DM2, Heart Healthy and Low Sodium (2gm) Addtl Attending Provider Instructions: You were admitted to [facility] from 06/20 - 06/23 for a skin infection in both of your legs. You were treated with IV antibiotics for the infection, which was effective for treating it. You were transitioned to an oral antibiotic called Doxycycline on 06/23. After discharge you should continue to take this medication twice per day for 6 days. You also had a mild exacerbation in your chronic heart failure while you were hospitalized, and we gave you several doses of IV Lasix for this, which helped. Please follow up with your PCP and Glass Inserter regarding this hospitalization. Pending Studies at Discharge: No Stand-Alone Forms: My [facility] Medications and DC Order Prescriptions: Continued doxycycline hyclate 100 mg tablet 100 mg PO bid Qty: 28 RF: 0 mupirocin 2 % ointment 1 appln TOP BID Qty: 22 RF: 4 levothyroxine 88 mcg tablet 88 mcg PO DAILY 90 Days Qty: 90 RF: 3 (DME) FreeStyle Gaetano 14 Day Sensor Kit See Rx Instructions .Route Qty: 2 RF: 1 bumetanide 2 mg tablet 2 mg PO DAILY Qty: 30 RF: 2 insulin aspart U-100 [Novolog U-100 Insulin aspart] 100 unit/mL solution 0 unit continuous subcutaneous infusion DAILY RF: 0 milk thistle 500 mg capsule 1,000 mg PO DAILY RF: 0 vitamins A,C,G-oyxm-vdxfwp 1 tab PO BID RF: 0 Marshmallow Root See Rx Instructions PO BID RF: 0 Lactobac #2-Bifido #1-S. therm 0 mg PO DAILY RF: 0 simethicone [Gas-X Extra Strength] 125 mg capsule 125 mg PO DAILY PRN (Reason: Gastric Reflux) RF: 0 Super K Complex 0 mg PO DAILY RF: 0 olive leaf extract See Rx Instructions PO DAILY PRN (Reason: NEEDED) RF: 0 bilberry 100 mg capsule 100 mg PO DAILY PRN (Reason: NEEDED) RF: 0 Urinozinc Prostate Formula Pls 100 mg Tablet 100 mg PO DAILY RF: 0 garlic 1,000 mg Capsule 5,000 mg PO DAILY RF: 0 acetylcarnitine 1 gram /scoop Powder 1 g PO DAILY RF: 0 miconazole nitrate 2 % powder 1 applic topical BID Qty: 85 RF: 2 calcitriol 0.5 mcg capsule 0.5 mcg PO 3XWK RF: 0 Discharge Orders: Discharge Order (Routine); Ordered 06/23/21 Ordered By: Gopal Alarcon/Other Patient Handouts: A1C, Managing Type 2 Diabetes Admission Data Admit Date/Time: 06/20/21 23:59 Attending Provider: Timothy Fortune Admit Provider: Kim Lema Primary Care Provider: Roc Casanova III Other Providers: Brissa Mishra Christophe W. Other Interventions: Discharge Summary Assessment (RN) Last Done: 06/23/21 15:12 Supervising Physician Co-Signing Physician Notes Attending attestation Pt seen and examined in concert with Dr. Dobbins. In agreement with the documented findings as noted in the resident documentation with any exceptions or additions as noted here. Continuing improvement in bilateral LE erythema and pain with ongoing swelling. Reports no shortness of breath while ambulating off oxygen. Taking home supplements, lots of salty and sweet foods brought by spouse. On examination, S1/S2 nl IRR/IRR no MCG. CTAB. Abd NT/ND BS+ve. Intense b/l LE warm, TTP, indurated rash significantly improved bilaterally. B/L LE celluitis w/ chronic venous stasis ulcers - wound care consult pending - BCx NGTD - transition to PO doxycycline HFmrEF - cardiology consult - PO bumetanide 2mg. Still declining any supportive evaluations vehemently. Atrial fibrillation - extensive discussion, patient defers AC and any further discussion of same at this time despite review of potential consequences of ongoing AF with no AC. Else see resident documentation as noted. Total attending time spent on this patient on the day of discharge: 40 minutes. Resident Activity Tracking Resident Involvement: Resident Care Provided Care Provided: Adult Hospital Medicine
[2021-06-23] MEDS ORDERED: FUROSEMIDE 40 MG in SYRINGE 0 ML IV ONE (13:00)
[2021-06-23] MEDS ORDERED: POTASSIUM CHLORIDE CRTAB 20 MEQ TABCR PO ONE (13:00)
[2021-06-23] MEDS ORDERED: DOXYCYCLINE HYCLATE 100 MG CAP PO SCH (21:00)
== END 2021-06-23 16:17 | disposition home or self-care (01) ==
LOC: ED 16:11 → SUATTDRO 23:59 → EDINP 23:59 → INTOOBSV 23:59 → 2W 06-21 14:37

== ENCOUNTER 2021-09-04 16:44 | Observation (INO) ==
[2021-09-04] MEDS ORDERED: PANTOprazole 80 MG in DEXTROSE 5% 100 ML IV ONE (16:58)
[2021-09-04] MEDS ORDERED: PANTOPRAZOLE BOLUS/DRIP 1 EA IV STA (16:58)
--- NOTE | 2021-09-04 17:07 | Emergency Department Note ---
Impression & Plan ABLA (acute blood loss anemia), BRBPR (bright red blood per rectum), Weakness, Breathlessness, Non-ST elevation DE (NSTEMI) ED Provider Note Provider: Candelario Jordan MD DATE OF SERVICE: 09/04/2021 CHIEF COMPLAINT: Rectal bleeding, weakness, shortness of breath HISTORY OF PRESENT ILLNESS: Patient is a 80-year-old gentleman history of diabetes, hypertension, CKD, CAD status post CABG, diastolic heart failure, hypothyroidism, GERD, lower extremity venous stasis with chronic ulcerations fol lowing with the wound clinic presenting today via ambulance from home after white noted some coffee-ground/black and then some slightly red stools today. No history of this in the past according the patient. EMS noted the patient to be somewhat hypoxic in the high 80s on room air. Patient does have as needed oxygen at home but wasn't using it. Patient complains of a little bit of shortness of breath a little bit of lower rectal discomfort and the black to mildly bloody stools. No chest pain reported or trauma or syncope. Patient denies a recollection of bleeding in his stool before. Patient is not reported to be on anticoagulation at this time. Patient did receive just over 500mL nor mal saline prior to arrival with blood pressures in the 80s and 90s. Patient later reports when he had surgery in 2004 he might had some bleeding ulcers at that point. later arrives and states that really the bleeding and black stool only began today but some clots were noted. Patient later complained of little bit of pain to left knee but no trauma. REVIEW OF SYSTEMS: A total of 10 review of systems was obtained and negative except as stated above in the HPI. PAST MEDICAL HISTORY: As noted above MEDICATIONS: Reviewed home medication list SOCIAL HISTORY: Lives at home with PHYSICAL EXAM: GENERAL: alert and oriented but somewhat fatigued appearing on the stretcher Head: normocephalic and atraumatic EYES: No injection, discharge or icterus. NECK: Trachea midline. Supple. ENT: Mucous membranes pink and moist. LUNGS: Airway patent. No retractions. Breath sounds clear with good air entry bilaterally. HEART: Regular rate and rhythm. No chest wall tenderness ABDOMEN: Soft and non-tender, without guarding or rebound however some mild abdominal edema is noted. SKIN: Acyanotic but somewhat pale in appearance warm, leg described below EXTREMITIES: Bilateral lower extremity chronic stasis and 2-3+ edema. Some small bandage wounds on the inner proximal lower legs without significant crepitus or purulent discharge noted. NEUROLOGICAL: No focal deficits moving all extremities No aphasia. No facial droop or slurred speech. EK bpm atrial fibrillation with left axis and intraventricular conduction delay. QTc 534. No acute ST segment elevation noted and compared to previous from June 20 of this year slightly worsened interventricular conduction delay without PVC today CONTINUOUS CARDIAC MONITORING: was ordered and showed a heart rate of 60s-70s bpm in atrial fibrillation with intraventricular conduction delay Patient's laboratory studies and imaging reviewed. Differential includes Infection, gastrointestinal bleeding, dehydration, metabolic abnormality, hypo/hyperglycemia, electrolyte disturbance, anemia, hypoxia, cardiac sources, intracerebral event, toxicologic, neurologic, as well as other pathologies. IMPRESSION/MEDICAL DECISION MAKING: Patient with multiple medical comorbidities not on anticoagulation. Patient with significant history of diastolic heart failure and atrial fibrillation. Patient doesn't report I don't see obvious evidence of history of GI bleeding. Patient with some dark red blood per rectum noted. Not peritoneal but a little bit of rectal pain reported; patient does not have significant abdominal tenderness. Chronic stasis is noted lower extremities. Patient on a small amount of oxygen. Received some IV fluids prior to arrival but blood pressure is tenuous upon arrival. Difficult situation given his history of heart failure and question of some component of heart failure may be contributing versus ane reno from the GI bleed. Protonix drip and bolus ordered. Type and screen sent. Chest x-ray with cardiomegaly and suggestion of some pulmonary edema with right pleural effusion and question of atelectasis versus pneumonia. Hemoglobin returns at 6.3. Patient consented for blood and 2 units ordered of pRBCs. Patient with mild lactate elevation in troponin elevation. CKD at baseline. Covid negative. Patient's blood pressure is high 80s to 100 systolic. later at bedside and patient and both updated. CT scan obtained to look for intra-abdominal pathology; evidence of some pleural effusions and ascites/edema with questioning of stomach and duodenal thickening. No acute diverticulitis noted. Patient and clear the patient would not want CPR, intubation, or vasopressors. Would be agreeable for blood and medications however as well as EGD later if needed. Patient states he mainly wants to focus on comfort and does not want anything too invasive. Discussed further care here at the hospital and the hospitalist was contacted. DIAGNOSIS: Bright red blood per rectum, weakness, shortness of breath, acute blood loss anemia, NSTEMI DISPOSITION: Hospitalist will evaluate Patient was agreeable with this plan. Critical Care I have personally spent 44 minutes of critical care time in the direct management of this patient. This includes bedside care, interpretation of diagnostic studies, and testing, discussion with consultants, patient, and family members, and other required patient management activities. These 44 minutes is in excess of all separately billable procedures. Past Med/Surg History Medical History Acute kidney injury BPH (benign prostatic hyperplasia) CAD (coronary artery disease) Cardiac murmur Cataract Chronic diastolic (congestive) heart failure Chronic venous insufficiency Chronic venous stasis CKD (chronic kidney disease) Diabetes mellitus, type 2 IDDM Diabetic foot ulcer associated with type 2 diabetes mellitus Diabetic nephropathy Diabetic retinopathy Dysphagia Esophageal dysmotility Heart failure History of epistaxis History of gastric ulcer History of GI bleed History of sleep apnea Hypercholesterolemia Hypertension Insulin pump in place Ischemic cardiomyopathy LVH (left ventricular hypertrophy) Lymphedema Microalbuminuria Myocardial infarction 2011 Neuropathy Protein in urine Secondary hyperparathyroidism of renal origin Swallowing dysfunction Trigeminal neuralgia of right side of face Uncontrolled type 2 diabetes mellitus with insulin therapy Vitamin D deficiency Surgical History History of appendectomy History of cardiac catheterization 2011 - [place] --> CABG History of colonoscopy (01/23/07) Dr. Gore, sigmoid diverticulosis, otherwise normal, recheck recommended 10 years History of coronary artery bypass graft 3 [facility] - 2011 - follows w/ Dr. Calderon (reports last visit 6-7 years ago) History of esophagogastroduodenoscopy (EGD) History of left cataract surgery History of nasal cauterization History of tonsillectomy Family History Mother Family history of diabetes mellitus Ulcerative colitis Uncle Family history of diabetes mellitus Aunt Family history of diabetes mellitus Unknown Hypertension Other Heart disease History of tooth extraction No family history of adverse response to anesthesia No family history of bleeding disorder Stroke Denies family history of Ovarian cancer Prostate cancer Coronary heart disease Breast cancer Scrotal edema Colorectal cancer Social History Smoking Status: Never smoker Second Hand Exposure: No; Hx Alcohol Use: No Hx Substance Use: No Preferred Language: Senegalese Communication Ability: Effective Visual Impairment: No Limitations Hearing Ability: Normal Criminal Justice Faculty Required: No Beliefs That Will Affect Care: None marital status: Current Living Situation: Spouse current occupational status: retired Feels Safe at Home: Yes Childhood Exposure to Second-Hand Smoke: No caffeine: Yes during the past year weight has: remained stable Dental Care, Regularly: Yes Seatbelt Use: never Sunscreen Use: No Assistive Devices: Walker Allergies Allergies Allergy/AdvReac Type Severity Reaction Status Date / Time cephalexin Allergy Intermediate pimple Verified 09/04/21 17:52 like rash cat dander Allergy Mild NO ALLERGY Verified 09/04/21 17:52 PATIENT PREFERENCE ragweed pollen Allergy Unknown SHORTNESS Verified 09/04/21 17:52 OF BREATH lisinopril AdvReac Mild Cough Verified 09/04/21 17:52 Esywajk-YSI-LwR Reductase AdvReac Mild SEE NOTE Verified 09/04/21 17:52 Inhibitor NO ALLERGY [Pxvhvaq-Mvi-Obo Reductase Inhibitor] Home Meds Home Medications Medication Instructions Recorded Confirmed vmwzocewb-ezp-yiamap complex 100 mg PO DAILY 10/23/19 09/04/21 #[id number] 100 mg tablet (Urinozinc Prostate Formula Plus) Lactobac #2-Bifido #1-S. therm 0 mg PO DAILY 06/16/20 09/04/21 [High Potency Probiotic] milk thistle 500 mg capsule 1,000 mg PO DAILY cap 06/16/20 09/04/21 Super K Complex 0 mg PO DAILY PRN 06/30/20 09/04/21 bilberry 100 mg capsule 100 mg PO DAILY PRN 09/28/20 09/04/21 olive leaf extract See Rx Instructions PO DAILY PRN 09/28/20 09/04/21 Marshmallow Root See Rx Instructions PO BID PRN 08/23/21 09/04/21 garlic 1,000 mg capsule 5,000 mg PO DAILY 08/23/21 09/04/21 Sucontrol D 2 tab PO QAM 09/04/21 09/04/21 acetylcarnitine 500 mg capsule 1,000 mg PO DAILY 09/04/21 09/04/21 bumetanide 2 mg tablet 4 mg PO BID 09/04/21 09/04/21 Previous Rx's Medication Instructions Recorded Seanyle Gaetano 14 Day Sensor #2 ea NS 08/22/21 (flash glucose sensor) Results & Data (ED) Vital Signs Vital Signs - 24 hr 09/04/21 16:36 09/04/21 16:58 09/04/21 18:43 Temperature 36.4 C L Temperature Source Oral Pulse Rate 62 Pulse Rate [Apical] 62 Respiratory Rate 18 20 12 Blood Pressure 89/56 L Blood Pressure [Right Arm] 86/55 L Blood Pressure Mean 67 Blood Pressure Mean [Right Arm] 65 Pulse Oximetry 96 96 100 Oxygen Delivery Method Room Air Oxygen Flow Rate 2 Sepsis Recent Fever Within 48 Hours No Sepsis New/Unexplained Change in Mental Status No Sepsis Action Taken by Nursing No Action Required 09/04/21 19:04 09/04/21 19:19 09/04/21 19:49 Temperature 36.5 C 36.5 C 36.5 C Temperature Source Oral Oral Oral Pulse Rate 61 65 61 Pulse Rate [Apical] Respiratory Rate 12 12 18 Blood Pressure 106/49 L 107/45 L 113/53 L Blood Pressure [Right Arm] Blood Pressure Mean 68 65 73 Blood Pressure Mean [Right Arm] Pulse Oximetry 100 99 100 Oxygen Delivery Method Oxygen Flow Rate 1 1 1 Sepsis Recent Fever Within 48 Hours Sepsis New/Unexplained Change in Mental Status Sepsis Action Taken by Nursing Laboratory Data Result diagrams: 09/04/21 17:09 09/04/21 17:09 Lab Results 09/04/21 09/04/21 09/04/21 Range/Units 16:58 17:09 17:09 WBC 10.93 H (4.8-10.8) K/uL RBC 2.03 L (4.7-6.1) M/uL Hgb 6.3 L* (14.0-18.0) g/dL Hct 19.1 L* (42-52) % MCV 94.1 (80-100) fL MCH 31.0 (25-34) pg MCHC 33.0 (32-36) g/dL RDW Std Deviation 48.9 H (36.4-46.3) fL RDW Coeff of Malcolm 14.4 (11.5-14.5) % Plt Count 195 (130-400) K/uL MPV 10.1 (7.4-10.4) fL Immature Gran % (Auto) 1.5 % Neut % (Auto) 81.7 % Lymph % (Auto) 9.2 % [place] % (Auto) 7.0 % Eos % (Auto) 0.3 % Baso % (Auto) 0.3 % Neut # (Auto) 8.94 H (1.4-6.5) K/uL Lymph # (Auto) 1.01 L (1.2-3.4) K/uL [place] # (Auto) 0.76 H (0.11-0.59) K/uL Eos # (Auto) 0.03 (0-0.5) K/uL Baso # (Auto) 0.03 (0-0.2) K/uL Immature Gran # (Auto) 0.16 H (0.00-0.02) K/uL Polychromasia 1+ Hypochromasia Present Anisocytosis Present PT 12.0 (9.0-12.0) Seconds INR 1.2 H (0.9-1.1) APTT 27.9 (21.0-31.0) Seconds PTT Ratio 1.1 Sodium (136-145) mmol/L Potassium (3.5-5.1) mmol/L Chloride (98-107) mmol/L Carbon Dioxide (21-32) mmol/L Anion Gap (3-11) BUN (7-18) mg/dl Creatinine (0.6-1.4) mg/dl Est Cr Clr Drug Dosing ml/min Est GFR ( Amer) ml/min Est GFR (Non-Af Amer) ml/min BUN/Creatinine Ratio (10-20) Glucose (70-99) mg/dl Lactate (0.4-2.0) mmol/L Calcium (8.5-10.1) mg/dl Total Bilirubin (0.2-1) mg/dl AST (15-37) U/L ALT (12-78) Alkaline Phosphatase (45-117) U/L Troponin I (0-0.045) ng/ml NT-Pro-B Natriuret Pep (0-1800) pg/ml Total Protein (6.4-8.2) gm/dl Albumin (3.4-5.0) gm/dl Globulin (2.5-4.0) gm/dl Albumin/Globulin Ratio (0.9-2) Lipase (73-393) U/L Procalcitonin (0-0.5) ng/ml POC Stool Occult Blood Positive A (Negative) SARS-CoV-2, RNA, NAAT (NEGATIVE) Blood Type Antibody Screen Crossmatch 09/04/21 09/04/21 09/04/21 Range/Units 17:09 17:09 17:24 WBC (4.8-10.8) K/uL RBC (4.7-6.1) M/uL Hgb (14.0-18.0) g/dL Hct (42-52) % MCV (80-100) fL MCH (25-34) pg MCHC (32-36) g/dL RDW Std Deviation (36.4-46.3) fL RDW Coeff of Malcolm (11.5-14.5) % Plt Count (130-400) K/uL MPV (7.4-10.4) fL Immature Gran % (Auto) % Neut % (Auto) % Lymph % (Auto) % [place] % (Auto) % Eos % (Auto) % Baso % (Auto) % Neut # (Auto) (1.4-6.5) K/uL Lymph # (Auto) (1.2-3.4) K/uL [place] # (Auto) (0.11-0.59) K/uL Eos # (Auto) (0-0.5) K/uL Baso # (Auto) (0-0.2) K/uL Immature Gran # (Auto) (0.00-0.02) K/uL Polychromasia Hypochromasia Anisocytosis PT (9.0-12.0) Seconds INR (0.9-1.1) APTT (21.0-31.0) Seconds PTT Ratio Sodium 138 (136-145) mmol/L Potassium 4.6 (3.5-5.1) mmol/L Chloride 104 (98-107) mmol/L Carbon Dioxide 25 (21-32) mmol/L Anion Gap 9.0 (3-11) BUN 84 H (7-18) mg/dl Creatinine 1.55 H (0.6-1.4) mg/dl Est Cr Clr Drug Dosing 43.4 ml/min Est GFR ( Amer) 48.6 ml/min Est GFR (Non-Af Amer) 42.0 ml/min BUN/Creatinine Ratio 54.1 H (10-20) Glucose 239 H (70-99) mg/dl Lactate (0.4-2.0) mmol/L Calcium 7.5 L (8.5-10.1) mg/dl Total Bilirubin 0.5 (0.2-1) mg/dl AST 14 L (15-37) U/L ALT 17 (12-78) Alkaline Phosphatase 107 D (45-117) U/L Troponin I 0.155 H* (0-0.045) ng/ml NT-Pro-B Natriuret Pep 8437 H (0-1800) pg/ml Total Protein 4.6 L (6.4-8.2) gm/dl Albumin 1.7 L (3.4-5.0) gm/dl Globulin 2.9 (2.5-4.0) gm/dl Albumin/Globulin Ratio 0.6 L (0.9-2) Lipase 300 (73-393) U/L Procalcitonin 0.13 (0-0.5) ng/ml POC Stool Occult Blood (Negative) SARS-CoV-2, RNA, NAAT (NEGATIVE) Blood Type A Positive Antibody Screen NEGATIVE Crossmatch See Detail 09/04/21 09/04/21 Range/Units 17:24 17:42 WBC (4.8-10.8) K/uL RBC (4.7-6.1) M/uL Hgb (14.0-18.0) g/dL Hct (42-52) % MCV (80-100) fL MCH (25-34) pg MCHC (32-36) g/dL RDW Std Deviation (36.4-46.3) fL RDW Coeff of Malcolm (11.5-14.5) % Plt Count (130-400) K/uL MPV (7.4-10.4) fL Immature Gran % (Auto) % Neut % (Auto) % Lymph % (Auto) % [place] % (Auto) % Eos % (Auto) % Baso % (Auto) % Neut # (Auto) (1.4-6.5) K/uL Lymph # (Auto) (1.2-3.4) K/uL [place] # (Auto) (0.11-0.59) K/uL Eos # (Auto) (0-0.5) K/uL Baso # (Auto) (0-0.2) K/uL Immature Gran # (Auto) (0.00-0.02) K/uL Polychromasia Hypochromasia Anisocytosis PT (9.0-12.0) Seconds INR (0.9-1.1) APTT (21.0-31.0) Seconds PTT Ratio Sodium (136-145) mmol/L Potassium (3.5-5.1) mmol/L Chloride (98-107) mmol/L Carbon Dioxide (21-32) mmol/L Anion Gap (3-11) BUN (7-18) mg/dl Creatinine (0.6-1.4) mg/dl Est Cr Clr Drug Dosing ml/min Est GFR ( Amer) ml/min Est GFR (Non-Af Amer) ml/min BUN/Creatinine Ratio (10-20) Glucose (70-99) mg/dl Lactate 2.8 H* (0.4-2.0) mmol/L Calcium (8.5-10.1) mg/dl Total Bilirubin (0.2-1) mg/dl AST (15-37) U/L ALT (12-78) Alkaline Phosphatase (45-117) U/L Troponin I (0-0.045) ng/ml NT-Pro-B Natriuret Pep (0-1800) pg/ml Total Protein (6.4-8.2) gm/dl Albumin (3.4-5.0) gm/dl Globulin (2.5-4.0) gm/dl Albumin/Globulin Ratio (0.9-2) Lipase (73-393) U/L Procalcitonin (0-0.5) ng/ml POC Stool Occult Blood (Negative) SARS-CoV-2, RNA, NAAT NEGATIVE (NEGATIVE) Blood Type Antibody Screen Crossmatch Administered Medications Pantoprazole Sodium 40 mg/ (Dextrose) 100 mls @ 20 mls/hr IV Q5H ADELFO Stop: 10/04/21 17:14 Last Admin: 09/04/21 18:26 Dose: 8 mg/hr, 20 mls/hr Documented by: [id number] Discontinued Medications Pantoprazole Sodium (Protonix Bolus/Drip) 0 mls @ 1 mls/hr IV ONE STA Stop: 09/04/21 16:59 Last Admin: 09/04/21 18:53 Dose: 1 mls/hr Documented by: [id number] Pantoprazole Sodium 80 mg/ (Dextrose) 120 mls @ 400 mls/hr IV NOW ONE Stop: 09/04/21 17:15 Last Infusion: 09/04/21 18:53 Dose: 0 mls/hr, 0 mls/hr Documented by: [id number] Admin: 09/04/21 18:04 Dose: 400 mls/hr, 400 mls/hr Documented by: [id number] Imaging Data Radiologist's Impression: Abdomen/Pelvis CT 09/04/21 16:[address] WITHOUT CONTRAST CT DOSE: 831.06 mGy.cm HISTORY: Acute rectal bleeding with right pleural effusion and right basilar consolidation rectal bleed TECHNIQUE: Multiaxial CT images of the abdomen and pelvis were performed without contrast. A dose lowering technique was utilized adhering to the principles of ALARA. COMPARISON STUDY: Chest radiograph of same day and also 07/26/2020, CT abdomen and pelvis 09/20/2019 FINDINGS: Moderate size right pleural effusion with right basilar consolidation, new from 07/26/2020. Trace left pleural effusion with mild left basilar atelectasis/scarring. There is no pneumatosis or pneumoperitoneum. Cardiomegaly with decreased attenuation of the cardiac blood pool suggestive of anemia. Coronary artery, mitral and aortic annular calcifications. The unenhanced spleen, mildly atrophic pancreas and adrenal glands are unremarkable. Cholelithiasis without CT evidence of acute cholecystitis. Cirrhotic liver. No hepatic mass lesion identified. Bilateral renal calcifications measure up to 3-4 mm. Exophytic 3 cm cyst of the posterolateral interpolar right kidney. 2.3 cm paracentral within the inferior pole right kidney on image 256 present on prior and was suggestive of asymmetric parenchyma. No ureteral calculi or hydronephrosis. Prostamegaly. Mild urinary bladder wall thickening. Atherosclerotic plaque of the aorta. Mildly enlarged inguinal chain lymph nodes measuring up to 1.3 cm are unchanged. No bowel obstruction. Colonic diverticulosis without acute diverticulitis. The appendix is not definitively seen. There is questioned wall thickening of the distal stomach and duodenum. Note is made of mesenteric and body wall edema with trace abdominal pelvic ascites. No acute fracture. Degenerative changes of the spine, pelvis and hips. IMPRESSION: 1. Moderate right and trace left pleural effusions with right basilar consolidation suggestive of compressive atelectasis versus pneumonia. 2. Cirrhosis with trace ascites, mesenteric and body wall edema. 3. No bowel obstruction. 4. Questioned wall thickening of the distal stomach and duodenum. Correlate clinically to exclude a nonspecific gastritis/duodenitis. 5. Colonic diverticulosis. 6. Unchanged bilateral renal calcifications. No ureteral calculi or hydronephrosis. 7. Cholelithiasis. 8. Additional findings as above. ACT 112: Negative or not required by law. The above report was generated using voice recognition software. It may contain grammatical, syntax or spelling errors. Electronically signed by: Luigi Solomon M.D. 09/04/2021 7:20 PM Chest X-Ray 09/04/21 16:58 XR chest 1V portable HISTORY: 80 years-old Male weak, sob acute weakness with shortness of breath COMPARISON: 07/26/2020 TECHNIQUE: Portable supine AP view of the chest FINDINGS: Cardiac silhouette is enlarged. Prior median sternotomy with CABG. Pulmonary vascular with interstitial coarsening. Chronic right hemidiaphragmatic elevation. Layering right pleural effusion with right midlung and basilar cons olidation. Degenerative changes of the shoulders and spine. IMPRESSION: 1. Cardiomegaly with suggested pulmonary edema. 2. Right pleural effusion with associated right basilar consolidation suggestive of atelectasis versus pneumonia. 3. Right hemidiaphragmatic elevation redemonstrated ACT 112: Negative or not required by law. The above report was generated using voice recognition software. It may contain grammatical, syntax or spelling errors. Electronically signed by: Luigi Solomon M.D. 09/04/2021 5:29 PM Discharge Plan Visit Data Chief Complaint: Rectal Bleed ED Provider: Candelario Jordan Discharge Problem: ABLA (acute blood loss anemia), BRBPR (bright red blood per rectum), Weakness, Breathlessness, Non-ST elevation DE (NSTEMI) Patient Disposition: Being Evaluated by Hospitalist Forms Stand Alone Forms: [employer] Prescriptions Prescriptions: No Action (DME) FreeStEmefcy Gaetano 14 Day Sensor Kit See Rx Instructions .Route Qty: 2 RF: 5 milk thistle 500 mg capsule 1,000 mg PO DAILY RF: 0 Lactobac #2-Bifido #1-S. therm 0 mg PO DAILY RF: 0 Super K Complex 0 mg PO DAILY PRN (Reason: NOSE BLEEDS) RF: 0 olive leaf extract See Rx Instructions PO DAILY PRN (Reason: NEEDED) RF: 0 Marshmallow Root See Rx Instructions PO BID PRN (Reason: NEEDED) RF: 0 bilberry 100 mg capsule 100 mg PO DAILY PRN (Reason: NEEDED) RF: 0 Urinozinc Prostate Formula Pls 100 mg Tablet 100 mg PO DAILY RF: 0 garlic 1,000 mg capsule 5,000 mg PO DAILY RF: 0 acetylcarnitine 500 mg Capsule 1,000 mg PO DAILY RF: 0 Sucontrol D 2 tab PO QAM RF: 0 bumetanide 2 mg tablet 4 mg PO BID RF: 0 Referrals Referrals: Roc Casanova III, MD [Primary Care Provider] -
[2021-09-04 17:24] LABS: Hematocrit (blood only) 19.1 % (42-52); Hemoglobin 6.3 g/dL (14.0-18.0); Mean Corpuscular Volume 94.1 fL (80-100); Mean Platelet Volume 10.1 fL (7.4-10.4); Platelet Count 195 K/uL (130-400); RDW Coefficient of Variation 14.4 % (11.5-14.5); RDW Standard Deviation 48.9 fL (36.4-46.3); Red Blood Count 2.03 M/uL (4.7-6.1); White Blood Count 10.93 K/uL (4.8-10.8)
[2021-09-04] MEDS ORDERED: SODIUM CHLORIDE 0.9% 250 ML IV PRN (17:26)
[2021-09-04 17:27] LABS: INR 1.2 (0.9-1.1); Partial Thromboplastin Ratio 1.1; Partial Thromboplastin Time 27.9 Seconds (21.0-31.0)
--- NOTE | 2021-09-04 17:30 | XRay Report ---
XR chest 1V portable HISTORY: 80 years-old Male weak, sob acute weakness with shortness of breath COMPARISON: 07/26/2020 TECHNIQUE: Portable supine AP view of the chest FINDINGS: Cardiac silhouette is enlarged. Prior median sternotomy with CABG. Pulmonary vascular with interstiti al coarsening. Chronic right hemidiaphragmatic elevation. Layering right pleural effusion with right midlung and basilar consolidation. Degenerative changes of the shoulders and spine. IMPRESSION: 1. Cardiomegaly with suggested pulmonary edema. 2. Right pleural effusion with associated right basilar consolidation suggestive of atelectasis versu s pneumonia. 3. Right hemidiaphragmatic elevation redemonstrated ACT 112: Negative or not required by law. The above report was generated using voice recognition software. It may contain grammatical, syntax o r spelling errors. Electronically signed by: Luigi Solomon M.D. 09/04/2021 5:29 PM
[2021-09-04 17:37] LABS: Albumin Level 1.7 gm/dl (3.4-5.0); BUN Creatinine Ratio 54.1 (10-20); Calcium 7.5 mg/dl (8.5-10.1); Creatinine Clr Calc Pharmacy 43.4 ml/min; Est GFR (African American) 48.6 ml/min; Potassium 4.6 mmol/L (3.5-5.1)
[2021-09-04 17:44] LABS: Anisocytosis Present; Basophils # (auto) 0.03 K/uL (0-0.2); Basophils % (auto) 0.3 %; Eosinophils # (auto) 0.03 K/uL (0-0.5); Eosinophils % (auto) 0.3 %; Hypochromasia Present; Immature Granulocytes # (auto) 0.16 K/uL (0.00-0.02); Immature Granulocytes % (auto) 1.5 %; Lymphocytes # (auto) 1.01 K/uL (1.2-3.4); Lymphocytes % (auto) 9.2 %; Monocytes # (auto) 0.76 K/uL (0.11-0.59); Neutrophils # (auto) 8.94 K/uL (1.4-6.5); Neutrophils % (auto) 81.7 %; Polychromasia 1+
[2021-09-04 17:50] LABS: Albumin Globulin Ratio 0.6 (0.9-2); Bilirubin,Total 0.5 mg/dl (0.2-1); Globulin 2.9 gm/dl (2.5-4.0); Total Protein 4.6 gm/dl (6.4-8.2); Troponin I 0.155 ng/ml (0-0.045)
--- NOTE | 2021-09-04 18:23 | History & Physical Report ---
Date of Service September 04, 2021 Assessment & Plan (1) Goals of care, counseling/discussion: Plan: Inconsistent goals of care. Wants active treatment for current GI bleed with blood transfusions and bumex but living will states wanting treatment for comfort care only. He currently feels the blood transfusions are helping with pain in his left knee therefore feels this is useful for his comfort. I explained blood transfusion risks and use for comfort care is generally not recommended especially given his heart failure but despite this they wish to go ahead and receive this currently. Very non-compliant with medications at home. Does not take antibiotics for in fections. Intermittently takes Bumex for heart failure. Mainly uses supplements for his medical needs. Given previous wishes and current heart failure advised against endoscopy evaluation which both he patient and agree to. Also advised against vasopressors given wish for comfort, again agreed to. If failing medical therapy suggest switch to full comfort which his understands would mean no further blood transfusions and just being made comfortable at that time with pain and anti-anxiety medications. (2) Acute GI bleeding: Plan: Despite liver cirrhosis, no esophageal varices noted and no hematemesis therefore no antibiotic prophylaxis indicated Questioned wall thickening of the distal stomach and duodenum appreciated on CT. Transfuse 2 units and repeat H&H. Aim Hgb > 9 in setting of elevated troponin and shortness of breath IV pantoprazole bolus and drip. (3) Heart failure with mid-range ejection fraction: Plan: Acute on chronic Unknown quantity of Bumex patient takes at home as he takes pills intermittently Prior good diuresis in Jun 2020 admission with Bumex 2mg IV BID but this also caused bump in his Cr. Recent admission bump in Cr likely caused by IV fluids. Will hold off Bumex prior to initial blood transfusion due to hypotension and will dose accordingly per BP response, shortness of breath (4) Hypotension: Plan: Secondary to GI bleed as above. Given lack of hypoxia will hold off diuretics currently but will likely need diuretics after blood transfusions. (5) Peripheral arterial disease: Plan: Cap refil in toes appears good at the present time despite. He is non compliant with medication therefore further workup or medications deferred. (6) Uncontrolled type II diabetes mellitus: Plan: HbA1C 7.6 in June. No need to repeat in setting of acute GI bleed Novolog sliding scale: Goal BSG Range: Low 110 mg/dL, High 140 mg/dL Correction Factor: 45 mg/dL/unit Carbohydrate ratio = 15 g/unit BSGs ACHS if eating, q6h if npo (7) Atrial fibrillation: Plan: On no anticoagulation due to patient choice per multiple prior cardiology notes. Rate controlled off medications, prior bradycardia with AV huyen blocking agents. (8) Ischemic cardiomyopathy: Plan: On no specific medication for this. (9) CAD (coronary artery disease): Plan: Prior history of CABG No BB due to bradycardia No ASA due to acute GI bleed Longstanding history of declining statins (10) Hypothyroidism: Plan: TSH 6.95. Patient declines medications for this. (11) Lower extremity ulceration: Plan: Chronica problem but likely worse with leg swelling. I am concerned about osteomyelitis of his right > left 2nd toe however he has declined any antibiotic for this therefore further workup deferred. Will consult wound care for local treatment. (12) Liver cirrhosis: Plan: Noted on CT. Will defer spironolactone on admission but may benefit from this added diuretic pending goals of care. Plan: VTE Prophylaxis - chemical contraindicated in setting of acute GI bleed Diet - NPO Disposition - admit to PCU Admission and Anticipated Discharge Date Admission Date: September 04, 2021 History of Present Illness Chief Complaint: Dark red stool Primary Care Provider: Roc Casanova MD Jeffery Hernandes is a 80 year old chronically unwell male who presents to the ER with dark colored stool and shortness of breath. His at bedside provides the majority of the history. She reports he was his normal (but chronically unwell) self yesterday. Today he appeared much slower and she noted on two occasions he passed large amount of dark red stool. He is chronically short of breath from heart failure and non-compliance with his Bumex however this also appeared worse today. He denies any chest pain. The patient is mostly bed bound but not dizzy. He notes left leg pain but cannot give me any significant history of this duration or onset but he feels it is related to his current anemia. No prior GI ulcer but he does have recurrent epistaxis. He felt nauseous prior to coming to the ER but no vomiting or hematemesis. In the ER hemoglobin was noted to be 6.3. He was consented for blood and is ordered 2 units (currently receving his first unit). He was referred to medicine for admission and ongoing management of GI bleed. Allergies Allergy/AdvReac Type Severity Reaction Status Date / Time cephalexin Allergy Intermediate pimple Verified 09/04/21 17:52 like rash cat dander Allergy Mild NO ALLERGY Verified 09/04/21 17:52 PATIENT PREFERENCE ragweed pollen Allergy Unknown SHORTNESS Verified 09/04/21 17:52 OF BREATH lisinopril AdvReac Mild Cough Verified 09/04/21 17:52 Xwifmqe-OGE-BtB Reductase AdvReac Mild SEE NOTE Verified 09/04/21 17:52 Inhibitor NO ALLERGY [Jyjifsl-Ofx-Uox Reductase Inhibitor] Home Medications Medication Instructions Recorded Confirmed Type iuhfjsifl-dkh-rshjny complex 100 mg PO DAILY 10/23/19 09/04/21 History #584-bzhd-hjdonzjjjf 100 mg tablet (Urinozinc Prostate Formula Plus) Lactobac #2-Bifido #1-S. therm 0 mg PO DAILY 06/16/20 09/04/21 History [High Potency Probiotic] milk thistle 500 mg capsule 1,000 mg PO DAILY cap 06/16/20 09/04/21 History Super K Complex 0 mg PO DAILY PRN 06/30/20 09/04/21 History bilberry 100 mg capsule 100 mg PO DAILY PRN 09/28/20 09/04/21 History olive leaf extract See Rx Instructions PO DAILY PRN 09/28/20 09/04/21 History FreeStyle Gaetano 14 Day Sensor #2 ea NS 08/22/21 08/31/21 Rx (flash glucose sensor) Marshmallow Root See Rx Instructions PO BID PRN 08/23/21 09/04/21 History garlic 1,000 mg capsule 5,000 mg PO DAILY 08/23/21 09/04/21 History Sucontrol D 2 tab PO QAM 09/04/21 09/04/21 History acetylcarnitine 500 mg capsule 1,000 mg PO DAILY 09/04/21 09/04/21 History bumetanide 2 mg tablet 4 mg PO BID 09/04/21 09/04/21 History Past Med/Surg History Medical History Acute kidney injury BPH (benign prostatic hyperplasia) CAD (coronary artery disease) Cardiac murmur Cataract Chronic diastolic (congestive) heart failure Chronic venous insufficiency Chronic venous stasis CKD (chronic kidney disease) Diabetes mellitus, type 2 IDDM Diabetic foot ulcer associated with type 2 diabetes mellitus Diabetic nephropathy Diabetic retinopathy Dysphagia Esophageal dysmotility Heart failure History of epistaxis History of gastric ulcer History of GI bleed History of sleep apnea Hypercholesterolemia Hypertension Insulin pump in place Ischemic cardiomyopathy LVH (left ventricular hypertrophy) Lymphedema Microalbuminuria Myocardial infarction 2011 Neuropathy Protein in urine Secondary hyperparathyroidism of renal origin Swallowing dysfunction Trigeminal neuralgia of right side of face Uncontrolled type 2 diabetes mellitus with insulin therapy Vitamin D deficiency Surgical History History of appendectomy History of cardiac catheterization 2011 - [place] --> CABG History of colonoscopy (01/23/07) Dr. Gore, sigmoid diverticulosis, otherwise normal, recheck recommended 10 years History of coronary artery bypass graft 3 [facility] - 2011 - follows w/ Dr. Calderon (reports last visit 6-7 years ago) History of esophagogastroduodenoscopy (EGD) History of left cataract surgery History of nasal cauterization History of tonsillectomy Family History Mother Family history of diabetes mellitus Ulcerative colitis Uncle Family history of diabetes mellitus Aunt Family history of diabetes mellitus Unknown Hypertension Other Heart disease History of tooth extraction No family history of adverse response to anesthesia No family history of bleeding disorder Stroke Denies family history of Ovarian cancer Prostate cancer Coronary heart disease Breast cancer Scrotal edema Colorectal cancer Social History Smoking Status: Never smoker Second Hand Exposure: No; Hx Alcohol Use: No Hx Substance Use: No Preferred Language: Serbian Communication Ability: Effective Visual Impairment: No Limitations Hearing Ability: Normal Bark Skinner Required: No Beliefs That Will Affect Care: None marital status: Current Living Situation: Spouse current occupational status: retired Feels Safe at Home: Yes Childhood Exposure to Second-Hand Smoke: No caffeine: Yes during the past year weight has: remained stable Dental Care, Regularly: Yes Seatbelt Use: never Sunscreen Use: No Assistive Devices: Walker Review of Systems Review of Systems: All systems reviewed & are unremarkable except as noted in HPI & below Physical Exam Constitutional: well developed and + ill appearing; + not well nourished and no acute distress Eyes: + conjunctival abnormality (pallor) Respiratory: normal respiratory effort; no respiratory distress Auscultation: + rhonchi (b/l); no wheezes Cardiovascular: Rate/Rhythm: regular rate and + irregularly irregular Heart Sounds: no murmur Extremities: + pedal edema (3+ to thighs, equal b/l); + abnormal capillary refill (4-5 seconds peripherally) and no calf tenderness Gastrointestinal (Abdomen): Inspection/Auscultation: normal bowel sounds Percussion/Palpation: + abdomen tender (epigastric) and abdomen soft; no guarding and abdomen not rigid Skin: + ulcer (b/l toes stage 2), + erythema (right 2nd toe, swollen and warm to touch) and + pallor Neurologic: moves all extremities and awake; not confused Psychiatric: A+Ox3, euthymic affect Results & Data Results & Data ([facility]) Vital Signs (Past 12 Hours) Vital Signs Pulse Resp BP Pulse Ox 09/04/21 16:58 20 96 09/04/21 16:36 62 18 86/55 L 96 Laboratory Results Abnormal lab results 09/04/21 09/04/21 09/04/21 Range/Units 16:58 17:09 17:09 WBC 10.93 H (4.8-10.8) K/uL RBC 2.03 L (4.7-6.1) M/uL Hgb 6.3 L* (14.0-18.0) g/dL Hct 19.1 L* (42-52) % RDW Std Deviation 48.9 H (36.4-46.3) fL Neut # (Auto) 8.94 H (1.4-6.5) K/uL Lymph # (Auto) 1.01 L (1.2-3.4) K/uL Sheridan # (Auto) 0.76 H (0.11-0.59) K/uL Immature Gran # (Auto) 0.16 H (0.00-0.02) K/uL INR 1.2 H (0.9-1.1) BUN (7-18) mg/dl Creatinine (0.6-1.4) mg/dl BUN/Creatinine Ratio (10-20) Glucose (70-99) mg/dl POC Glucose (70-99) mg/dl Lactate (0.4-2.0) mmol/L Calcium (8.5-10.1) mg/dl AST (15-37) U/L Troponin I (0-0.045) ng/ml NT-Pro-B Natriuret Pep (0-1800) pg/ml Total Protein (6.4-8.2) gm/dl Albumin (3.4-5.0) gm/dl Albumin/Globulin Ratio (0.9-2) POC Stool Occult Blood Positive A (Negative) Crossmatch 09/04/21 09/04/21 09/04/21 Range/Units 17:09 17:24 17:24 WBC (4.8-10.8) K/uL RBC (4.7-6.1) M/uL Hgb (14.0-18.0) g/dL Hct (42-52) % RDW Std Deviation (36.4-46.3) fL Neut # (Auto) (1.4-6.5) K/uL Lymph # (Auto) (1.2-3.4) K/uL Sheridan # (Auto) (0.11-0.59) K/uL Immature Gran # (Auto) (0.00-0.02) K/uL INR (0.9-1.1) BUN 84 H (7-18) mg/dl Creatinine 1.55 H (0.6-1.4) mg/dl BUN/Creatinine Ratio 54.1 H (10-20) Glucose 239 H (70-99) mg/dl POC Glucose (70-99) mg/dl Lactate 2.8 H* (0.4-2.0) mmol/L Calcium 7.5 L (8.5-10.1) mg/dl AST 14 L (15-37) U/L Troponin I 0.155 H* (0-0.045) ng/ml NT-Pro-B Natriuret Pep 8437 H (0-1800) pg/ml Total Protein 4.6 L (6.4-8.2) gm/dl Albumin 1.7 L (3.4-5.0) gm/dl Albumin/Globulin Ratio 0.6 L (0.9-2) POC Stool Occult Blood (Negative) Crossmatch See Detail 09/04/21 Range/Units 21:16 WBC (4.8-10.8) K/uL RBC (4.7-6.1) M/uL Hgb (14.0-18.0) g/dL Hct (42-52) % RDW Std Deviation (36.4-46.3) fL Neut # (Auto) (1.4-6.5) K/uL Lymph # (Auto) (1.2-3.4) K/uL Sheridan # (Auto) (0.11-0.59) K/uL Immature Gran # (Auto) (0.00-0.02) K/uL INR (0.9-1.1) BUN (7-18) mg/dl Creatinine (0.6-1.4) mg/dl BUN/Creatinine Ratio (10-20) Glucose (70-99) mg/dl POC Glucose 244 H (70-99) mg/dl Lactate (0.4-2.0) mmol/L Calcium (8.5-10.1) mg/dl AST (15-37) U/L Troponin I (0-0.045) ng/ml NT-Pro-B Natriuret Pep (0-1800) pg/ml Total Protein (6.4-8.2) gm/dl Albumin (3.4-5.0) gm/dl Albumin/Globulin Ratio (0.9-2) POC Stool Occult Blood (Negative) Crossmatch Diagnostic Findings XR chest 1V portable HISTORY: 80 years-old Male weak, sob acute weakness with shortness of breath COMPARISON: 07/26/2020 TECHNIQUE: Portable supine AP view of the chest FINDINGS: Cardiac silhouette is enlarged. Prior median sternotomy with CABG. Pulmonary vascular with interstitial coarsening. Chronic right hemidiaphragmatic elevation. Layering right pleural effusion with right midlung and basilar consolidation. Degenerative changes of the shoulders and spine. IMPRESSION: 1. Cardiomegaly with suggested pulmonary edema. 2. Right pleural effusion with associated right basilar consolidation suggestive of atelectasis versus pneumonia. 3. Right hemidiaphragmatic elevation redemonstrated Medications Administered ER Medications Given: Pantoprazole 80mg IV bolus and drip ECG Rhythm: atrial fibrillation Findings: + other (non-specific intraventricular block) Comparison ECG Date: from Code Status & VTE Plan Code Status DNR/DNI VTE Prophylaxis Plan VTE Prophylaxis will be ordered: No PG Care Time/CCT Total # of Minutes Spent Total Time Spent with Patient: Total time spent is greater than 50% in coordination of care (as documented) at patient's floor/unit and/or counseling patient: Coding Level of Care Code 24289 Initial Inpt Care Lvl 3 Diagnoses Acute GI bleeding K92.2 Hypotension I95.9 Peripheral arterial disease I73.9 Uncontrolled type II diabetes mellitus E11.65 Atrial fibrillation I48.91 Heart failure with mid-range ejection fraction I50.9 Ischemic cardiomyopathy I25.5 CAD (coronary artery disease) I25.10 Hypothyroidism E03.9 Goals of care, counseling/discussion Z71.89 Lower extremity ulceration L97.909 Liver cirrhosis K74.60
[2021-09-04] MEDS: PANTOprazole 40 MG in DEXTROSE 5% 100 ML IV SCH ×2 (18:26→23:48)
--- NOTE | 2021-09-04 19:21 | CT Scan Report ---
ABDOMEN AND PELVIS CT WITHOUT CONTRAST CT DOSE: 831.06 mGy.cm HISTORY: Acute rectal bleeding with right pleural effusion and right basilar consolidation rectal bl eed TECHNIQUE: Multiaxial CT images of the abdomen and pelvis were performed without contrast. A dose lo wering technique was utilized adhering to the principles of ALARA. COMPARISON STUDY: Chest radiograph of same day and also 07/26/2020, CT abdomen and pelvis 09/20/2019 FINDINGS: Moderate size right pleural effusion with right basilar consolidation, new from 07/26/2020. Trace left pleural effusion with mild left basilar atelectasis/scarring. There is no pneumatosis or pneumoperit oneum. Cardiomegaly with decreased attenuation of the cardiac blood pool suggestive of anemia. Silva ry artery, mitral and aortic annular calcifications. The unenhanced spleen, mildly atrophic pancreas and adrenal glands are unremarkable. Cholelithiasis w ithout CT evidence of acute cholecystitis. Cirrhotic liver. No hepatic mass lesion identified. Bilate ral renal calcifications measure up to 3-4 mm. Exophytic 3 cm cyst of the posterolateral interpolar r ight kidney. 2.3 cm paracentral within the inferior pole right kidney on image 256 present on prior a nd was suggestive of asymmetric parenchyma. No ureteral calculi or hydronephrosis. Prostamegaly. Mild urinary bladder wall thickening. Atherosclerotic plaque of the aorta. Mildly enlarged inguinal chain lymph nodes measuring up to 1.3 cm are unchanged. No bowel obstruction. Colonic diverticulosis without acute diverticulitis. The appendix is not defini tively seen. There is questioned wall thickening of the distal stomach and duodenum. Note is made of mesenteric and body wall edema with trace abdominal pelvic ascites. No acute fracture. Degenerative c hanges of the spine, pelvis and hips. IMPRESSION: 1. Moderate right and trace left pleural effusions with right basilar consolidation suggestive of com pressive atelectasis versus pneumonia. 2. Cirrhosis with trace ascites, mesenteric and body wall edema. 3. No bowel obstruction. 4. Questioned wall thickening of the distal stomach and duodenum. Correlate clinically to exclude a n onspecific gastritis/duodenitis. 5. Colonic diverticulosis. 6. Unchanged bilateral renal calcifications. No ureteral calculi or hydronephrosis. 7. Cholelithiasis. 8. Additional findings as above. ACT 112: Negative or not required by law. The above report was generated using voice recognition software. It may contain grammatical, syntax o r spelling errors. Electronically signed by: Luigi Solomon M.D. 09/04/2021 7:20 PM
[2021-09-04] MEDS ORDERED: GLUCOSE 10 TABS/TUBE PO PRN (20:31)
[2021-09-04] MEDS ORDERED: GLUCAGON FOR INJ 1 MG VIAL SQ PRN (20:31)
[2021-09-04] MEDS ORDERED: DEXTROSE 50% 50 ML SYRINGE IV PRN (20:31)
[2021-09-04] MEDS ORDERED: GLUCOSE 40% GEL 15 GM TUBE PO PRN (20:31)
[2021-09-04] MEDS ORDERED: ACETAMINOPHEN 325 MG TAB PO PRN (20:31)
[2021-09-04] MEDS ORDERED: CARBOHYDRATES FOR HYPOGLYCEMIA PO PRN (20:31)
[2021-09-04] MEDS: INSULIN ASPART PER UNIT SC SCH (21:48)
[2021-09-04] MEDS ORDERED: BUMETANIDE 1 MG in SYRINGE 0 ML IV ONE (22:00)
[2021-09-05 02:28] LABS: Basophils # (auto) 0.03 K/uL (0-0.2); Basophils % (auto) 0.3 %; Eosinophils # (auto) 0.25 K/uL (0-0.5); Eosinophils % (auto) 2.2 %; Hematocrit (blood only) 25.8 % (42-52); Hemoglobin 8.4 g/dL (14.0-18.0); Immature Granulocytes # (auto) 0.15 K/uL (0.00-0.02); Immature Granulocytes % (auto) 1.3 %; Lymphocytes # (auto) 0.97 K/uL (1.2-3.4); Lymphocytes % (auto) 8.5 %; Mean Corpuscular Hemoglobin 30.5 pg (25-34); Mean Corpuscular Hgb Conc 32.6 g/dL (32-36); Mean Corpuscular Volume 93.8 fL (80-100); Mean Platelet Volume 9.9 fL (7.4-10.4); Monocytes # (auto) 1.26 K/uL (0.11-0.59); Neutrophils # (auto) 8.75 K/uL (1.4-6.5); Neutrophils % (auto) 76.7 %; Platelet Count 208 K/uL (130-400); RDW Coefficient of Variation 14.6 % (11.5-14.5); RDW Standard Deviation 49.5 fL (36.4-46.3); Red Blood Count 2.75 M/uL (4.7-6.1); White Blood Count 11.41 K/uL (4.8-10.8)
[2021-09-05] MEDS: PANTOprazole 40 MG in DEXTROSE 5% 100 ML IV SCH ×2 (05:29→10:37)
[2021-09-05] MEDS: INSULIN ASPART PER UNIT SC SCH ×2 (08:35→13:01)
[2021-09-05 08:36] LABS: Hematocrit (blood only) 23.7 % (42-52); Hemoglobin 8.1 g/dL (14.0-18.0)
[2021-09-05 08:55] LABS: Calcium 7.4 mg/dl (8.5-10.1); Creatinine Clr Calc Pharmacy 43.5 ml/min; Est GFR (African American) 47.2 ml/min; Est GFR (Non-African American) 40.7 ml/min; Potassium 4.3 mmol/L (3.5-5.1)
[2021-09-05] MEDS ORDERED: BUMETANIDE 1 MG in SYRINGE 0 ML IV SCH (09:00)
[2021-09-05 14:10] LABS: Hematocrit (blood only) 23.3 % (42-52); Hemoglobin 7.9 g/dL (14.0-18.0)
--- NOTE | 2021-09-05 15:40 | Discharge Summary ---
Date of Service September 05, 2021 Admission HPI Per Admitting Provider Jeffery Hernandes is a 80 year old chronically unwell male who presents to the ER with dark colored stool and shortness of breath. His at bedside provides the majority of the history. She reports he was his normal (but chronically unwell) self yesterday. Today he appeared much slower and she noted on two occasions he passed large amount of dark red stool. He is chronically short of breath from heart failure and non-compliance with his Bumex however this also appeared worse today. He denies any chest pain. The patient is mostly bed bound but not dizzy. He notes left leg pain but cannot give me any significant history of this duration or onset but he feels it is related to his current anemia. No prior GI ulcer but he does have recurrent epistaxis. He felt nauseous prior to coming to the ER but no vomiting or hematemesis. In the ER hemoglobin was noted to be 6.3. He was consented for blood and is ordered 2 units (currently receving his first unit). He was referred to medicine for admission and ongoing management of GI bleed. Principal Diagnosis Acute GI bleed Discharge Data Allergies Allergy/AdvReac Type Severity Reaction Status Date / Time cephalexin Allergy Intermediate pimple Verified 09/04/21 17:52 like rash cat dander Allergy Mild NO ALLERGY Verified 09/04/21 17:52 PATIENT PREFERENCE ragweed pollen Allergy Unknown SHORTNESS Verified 09/04/21 17:52 OF BREATH lisinopril AdvReac Mild Cough Verified 09/04/21 17:52 Tbdllvy-XNO-AqF Reductase AdvReac Mild SEE NOTE Verified 09/04/21 17:52 Inhibitor NO ALLERGY [Uxhbkbw-Tcg-Ayt Reductase Inhibitor] Consultations 09/04/21 18:17 ED Decision to Admit Stat 09/04/21 22:05 Consult Palliative Care Routine Ordered Studies 09/04/21 16:58 CT abd pelvis wo con Stat Hospital Course (1) Goals of care, counseling/discussion: Wanted blood transfusions, but adamantly declined "instrumentation." He was 100% set against going to any SNF or temporary rehab which his agreed with. He stated he wanted a "natural" . He was concerned that we had done enough medical care that he was now too weak to go home and became very upset (irate) with myself and his when informed he may need to stay another night. He was arranged with home hospice. He reported he did not want to come back to the hospital. (2) Acute GI bleeding: Acute blood loss anemia in setting of GI bleed Despite liver cirrhosis, no esophageal varices noted and no hematemesis therefore no antibiotic prophylaxis indicated Questioned wall thickening of the distal stomach and duodenum appreciated on CT. Transfused 2 units and repeat H&H. -> Discharged on PPI PO BID. (3) Heart failure with mid-range ejection fraction: Acute on chronic Unknown quantity of Bumex patient takes at home as he takes pills intermittently Prior good diuresis in Jun 2020 admission with Bumex 2mg IV BID but this also caused bump in his Cr. Recent admission bump in Cr likely caused by IV fluids. -> Encouraged to use Bumex at home. (4) Hypotension: Secondary to GI bleed as above. Given lack of hypoxia will hold off diuretics currently but will likely need diuretics after blood transfusions. (5) Peripheral arterial disease: Cap refil in toes appears good at the present time despite. He is non compliant with medication therefore further workup or medications deferred. (6) Uncontrolled type II diabetes mellitus: HbA1C 7.6 in June. No need to repeat in setting of acute GI bleed Novolog sliding scale: Goal BSG Range: Low 110 mg/dL, High 140 mg/dL Correction Factor: 45 mg/dL/unit Carbohydrate ratio = 15 g/unit BSGs ACHS if eating, q6h if npo (7) Atrial fibrillation: On no anticoagulation due to patient choice per multiple prior cardiology notes. Rate controlled off medications, prior bradycardia with AV huyen blocking agents. (8) Ischemic cardiomyopathy: On no specific medication for this. (9) CAD (coronary artery disease): Prior history of CABG. Demand ischemia in setting of hypotension and anemia. No BB due to bradycardia No ASA due to acute GI bleed Longstanding history of declining statins (10) Hypothyroidism: TSH 6.95. Patient declines medications for this. (11) Lower extremity ulceration: Chronica problem but likely worse with leg swelling. I am concerned about osteomyelitis of his right > left 2nd toe however he has declined any antibiotic for this therefore further workup deferred. Will consult wound care for local treatment. (12) Liver cirrhosis: Noted on CT. Will defer spironolactone on admission but may benefit from this added diuretic pending goals of care. VTE Prophylaxis - chemical contraindicated in setting of acute GI bleed Diet - NPO Disposition - admit to PCU Total Time Total Time Spent Total Time Spent (In Minutes): 35 Discharge Plan Discharge Items Patient Disposition: Hospice - Home Reason For Visit: ACUTE GI BLEED Discharge Diagnosis: Acute GI bleed, likely from stomach or first part of small intestine Activity: Resume your previous activity Non-emergency contact: Primary Care Provider Call non-emergency contact if: your symptoms worsen Follow-up/Referrals: Roc Casanova III, MD [Primary Care Provider] - Diet: Regular Addtl Attending Provider Instructions: You were admitted to the hospital with a GI bleed. This caused you to lose a considerable amount of blood and we ended up giving you two units of blood in the ER. We have started a medication called pantoprazole which helps neutralize stomach acid and let your stomach heal. For your fluid overload, please take your Bumex to help your kidneys pull off more fluid off and let you breath easier. Pending Studies at Discharge: No Stand-Alone Forms: My [facility] Medications and DC Order Prescriptions: New pantoprazole 40 mg tablet,delayed release (DR/EC) 40 mg PO BID Qty: 60 RF: 0 Continued (DME) FreeStyle Gaetano 14 Day Sensor Kit See Rx Instructions .Route Qty: 2 RF: 5 milk thistle 500 mg capsule 1,000 mg PO DAILY RF: 0 Lactobac #2-Bifido #1-S. therm 0 mg PO DAILY RF: 0 Super K Complex 0 mg PO DAILY PRN (Reason: NOSE BLEEDS) RF: 0 olive leaf extract See Rx Instructions PO DAILY PRN (Reason: NEEDED) RF: 0 Marshmallow Root See Rx Instructions PO BID PRN (Reason: NEEDED) RF: 0 bilberry 100 mg capsule 100 mg PO DAILY PRN (Reason: NEEDED) RF: 0 Urinozinc Prostate Formula Pls 100 mg Tablet 100 mg PO DAILY RF: 0 garlic 1,000 mg capsule 5,000 mg PO DAILY RF: 0 acetylcarnitine 500 mg Capsule 1,000 mg PO DAILY RF: 0 Sucontrol D 2 tab PO QAM RF: 0 bumetanide 2 mg tablet 4 mg PO BID RF: 0 Discharge Orders: Discharge Order (Routine); Ordered 09/05/21 Ordered By: Raymond Alarcon/Other Patient Handouts: What Is Palliative Care Admission Data Admit Date/Time: 09/04/21 18:32 Attending Provider: Raymond Lawrence Admit Provider: Luis Alfredo Baker Primary Care Provider: Roc Casanova III Other Providers: Kathia Ponce ; Raymond Lawrence Other Interventions: Discharge Summary Assessment (RN) Last Done: 09/05/21 14:04 Coding Level of Care Code D/C DAY MANAGEMENT >30 MINS Diagnoses Goals of care, counseling/discussion Z71.89 Acute GI bleeding K92.2 Heart failure with mid-range ejection fraction I50.9 Hypotension I95.9 Peripheral arterial disease I73.9 Uncontrolled type II diabetes mellitus E11.65 Atrial fibrillation I48.91 Ischemic cardiomyopathy I25.5 CAD (coronary artery disease) I25.10 Hypothyroidism E03.9 Lower extremity ulceration L97.909 Liver cirrhosis K74.60
--- NOTE | 2021-09-06 22:03 | Electrocardiogram Report ---
Test Reason : Blood Pressure : / mmHG Vent. Rate : 063 BPM Atrial Rate : 000 BPM P-R Int : 000 ms QRS Dur : 192 ms QT Int : 522 ms P-R-T Axes : 000 -79 097 degrees QTc Int : 534 ms Atrial fibrillation Left axis deviation Non-specific intra-ventricular conduction block Abnormal ECG When compared with ECG of 20-JUN-2021 23:49, Premature ventricular complexes are no longer Present QT has lengthened Confirmed by Joseph Alejandro ([id number]) on 09/06/2021 10:03:01 PM Referred By: REFERRED SELF Confirmed By:Joseph Alejandro
== END 2021-09-05 16:06 | disposition hospice, home (50) ==
LOC: ED 16:44 → EDINP 18:32 → INTOOBSV 18:32 → SUATTDRO 18:32 → EDINP 20:35
DX: E55.9 Vitamin D deficiency, unspecified; E11.319 Type 2 diabetes mellitus with unspecified diabetic retinopathy without macular edema; I87.2 Venous insufficiency (chronic) (peripheral); I73.9 Peripheral vascular disease, unspecified; E03.9 Hypothyroidism, unspecified; N18.9 Chronic kidney disease, unspecified; I48.91 Unspecified atrial fibrillation; K92.2 Gastrointestinal hemorrhage, unspecified; Z96.41 Presence of insulin pump (external) (internal); Z95.1 Presence of aortocoronary bypass graft; L97.929 Non-pressure chronic ulcer of unspecified part of left lower leg with unspecified severity; I12.9 Hypertensive chronic kidney disease with stage 1 through stage 4 chronic kidney disease, or unspecified chronic kidney disease; I50.33 Acute on chronic diastolic (congestive) heart failure; K21.9 Gastro-esophageal reflux disease without esophagitis; N25.81 Secondary hyperparathyroidism of renal origin; Z79.899 Other long term (current) drug therapy; K74.60 Unspecified cirrhosis of liver; D62 Acute posthemorrhagic anemia; Z88.8 Allergy status to other drugs, medicaments and biological substances; I25.5 Ischemic cardiomyopathy; I25.10 Atherosclerotic heart disease of native coronary artery without angina pectoris; L97.919 Non-pressure chronic ulcer of unspecified part of right lower leg with unspecified severity; I95.9 Hypotension, unspecified; Z88.1 Allergy status to other antibiotic agents; Z91.14 Patient's other noncompliance with medication regimen; E11.22 Type 2 diabetes mellitus with diabetic chronic kidney disease; E11.21 Type 2 diabetes mellitus with diabetic nephropathy; E11.65 Type 2 diabetes mellitus with hyperglycemia